=== PATIENT | female | born 1940 | race Caucasian/White ===

== ENCOUNTER 2017-05-04 20:07 | Observation (INO) | payer MEDICARE, BC ==
[~2017-05-04] VITALS: Ht 165.1 cm; Wt 89.5 kg
[~2017-05-04 20:07] MED LIST: AMLO10TA PO; CHOL10002 PO; DEXL60CA3 PO; DILT-35 PO; INSU100V12 SQ; INSU100V36 SQ; LACT10SO32 PO; LEVO50TA8 PO; NADO20TA PO; ONDA8TAB6 PO; PHEN-824 PO; POLY17PO10 PO; [UNRECOGNIZED DRUG - CODE] PO
[2017-05-04] MEDS ORDERED: normal saline 1000ML IV soln IVB ONE (22:00)
[2017-05-04] MEDS ORDERED: MORPHINE 2MG in 2ml NS syringe IV PRN (22:00)
[2017-05-04] MEDS ORDERED: ondansetron/PF 4mg/2ml inj IV ONE (22:00)
[2017-05-04 22:19] LABS: BASOPHILS % (AUTO) 0.3 % (0-1); EOSINOPHILS # (AUTO) 0.3 X10'3 (0-0.9); EOSINOPHILS % (AUTO) 4.5 % (0-6); HEMATOCRIT 36.9 % (35.0-45.0); HEMOGLOBIN 12.4 g/dl (12.0-16.0); LYMPHOCYTES # (AUTO) 1.4 X10'3 (1.1-4.8); LYMPHOCYTES % (AUTO) 21.9 % (21-51); MEAN CORPUSCULAR HEMOGLOBIN 29.7 PG (27.0-31.0); MEAN CORPUSCULAR HGB CONC 33.6 % (33.0-36.5); MEAN CORPUSCULAR VOLUME 88.5 FL (78-98); MEAN PLATELET VOLUME 8.3 FL (7.4-10.4); MONOCYTES # (AUTO) 0.7 X10'3 (0-0.9); MONOCYTES % (AUTO) 11.3 % (2-12); PLATELET COUNT 120 X10'3 (140-440); RED BLOOD COUNT 4.17 X10'6 (4.20-5.60); RED CELL DISTRIBUTION WIDTH 17.7 % (11.5-14.5); WHITE BLOOD COUNT 6.4 X10'3 (4.5-11.0)
[2017-05-04 22:35] LABS: INR 1.1 INR; PROTHROMBIN TIME 11.8 SECONDS (9.0-12.0)
[2017-05-04 22:36] LABS: ALANINE AMINOTRANSFERASE 29 U/L (12-78); ALBUMIN 2.8 G/DL (3.4-5.0); ALBUMIN/GLOBULIN RATIO 0.7 (1.1-1.5); ALKALINE PHOSPHATASE 144 IU/L (46-116); ANION GAP 10 (8-16); ASPARTATE AMINO TRANSFERASE 49 U/L (10-37); BLOOD UREA NITROGEN 16 MG/DL (7-18); BUN/CREATININE RATIO 12.5 (6.6-38.0); CALCIUM 9.7 MG/DL (8.5-10.1); CHLORIDE 106 MMOL/L (99-107); CREATININE 1.28 MG/DL (0.40-0.90); GLUCOSE 139 MG/DL (70-104); POTASSIUM 4.2 MMOL/L (3.5-5.1); SODIUM 140 MMOL/L (135-145); TOTAL CARBON DIOXIDE 24.1 MMOL/L (24-32); TOTAL PROTEIN 6.9 G/DL (6.4-8.2); eGFR 40 ML/MIN
[2017-05-04 22:41] LABS: ETHANOL < 0.010 GM/DL (0.0-0.010)
[2017-05-04] MEDS ORDERED: ACET-3067 PO (22:44)
[2017-05-04] MEDS ORDERED: ESOM40CA30 PO (22:44)
[2017-05-04] MEDS ORDERED: [UNRECOGNIZED DRUG - CODE] PO (22:44)
[2017-05-04] MEDS ORDERED: FURO-150 PO (22:44)
[2017-05-04] MEDS ORDERED: SPIR50TA3 PO (22:44)
[2017-05-04 23:10] LABS: CLARITY,URINE CLEAR (Clear); COLOR,URINE YELLOW (Yellow); GLUCOSE, URINE NEGATIVE (Neg); KETONES,URINE 15 mg/dl (Neg); LEUKOCYTE ESTERASE ,URINE NEGATIVE (Neg); NITRITES, URINE NEGATIVE (Neg); OCCULT BLOOD,URINE NEGATIVE (Neg); PH,URINE 5.5 (4.8-8.0); PROTEIN,URINE 30 mg/dl (Neg)
[2017-05-04] MEDS ORDERED: proCHLORperazine 10 MG/2 ml inj IV ONE (23:10)
[2017-05-04 23:16] LABS: UA COLLECTION TYPE CLN CATCH MIDSTREAM
[2017-05-04 23:18] LABS: RBC,URINE NONE SEEN /HPF (0-2); WBC,URINE 0-4 /HPF (0-4)
[2017-05-04 23:19] LABS: BACTERIA,URINE FEW /HPF (Neg); HYALINE CASTS 0-3 /LPF (NEGATIVE); MUCUS STRANDS MODERATE /LPF (Neg); SQUAMOUS EPITHELIAL CELL,UR MANY /LPF (FEW)
[2017-05-05] MEDS ORDERED: normal saline 1000ml 1,000 ML IV SCH (01:22)
[2017-05-05] MEDS ORDERED: acetaminophen 325mg tablet PO PRN (01:25)
[2017-05-05] MEDS ORDERED: ondansetron/PF 4mg/2ml inj IV PRN (01:25)
[2017-05-05] MEDS ORDERED: levoTHYROXINE 25mcg tablet PO SCH (07:00)
[2017-05-05] MEDS ORDERED: pantoprazole 40mg Tablet.DR PO SCH (07:30)
[2017-05-05] MEDS ORDERED: acetaminophen w/codeine (60MG) #4 tablet PO SCH (08:00)
[2017-05-05] MEDS ORDERED: metoprolol tartrate 12.5mg (1/2 tablet) PO SCH (08:00)
[2017-05-05] MEDS ORDERED: famotidine 20mg tablet PO SCH (08:00)
[2017-05-05] MEDS: lactulose 20gm/30ml cup PO SCH ×2 (08:27→14:20)
[2017-05-05 10:56] LABS: CHOL/HDL RATIO 3.8 (0.00-4.99); CHOLESTEROL 219 MG/DL (0-200); HDL CHOLESTEROL 58 MG/DL (35-60); LDL CHOLESTEROL 140 MG/DL (50-100); TRIGLYCERIDES 112 MG/DL (20-135)
[2017-05-05 14:00] VITALS: BP_SYST 131; BP_SYST 134; BP_SYST 152; BP_DIAS 59; BP_DIAS 64; BP_DIAS 73
[2017-05-05] MEDS ORDERED: insulin glargine (Lantus) pen - multi-dose SQ SCH (21:00)
== END 2017-05-05 17:50 | disposition home or self-care (01) ==
LOC: ER 20:07 → ED HOLD 05-05 01:22 → ORTHO 4S 05-05 14:15
PROVIDERS: ADMIT Family Medicine; ATTEND Family Medicine
DX: R55 Syncope and collapse (principal); E11.43 Type 2 diabetes mellitus with diabetic autonomic (poly)neuropathy; E78.5 Hyperlipidemia, unspecified; E03.9 Hypothyroidism, unspecified; I12.9 Hypertensive chronic kidney disease with stage 1 through stage 4 chronic kidney disease, or unspecified chronic kidney disease; E11.22 Type 2 diabetes mellitus with diabetic chronic kidney disease; N18.3 Chronic kidney disease, stage 3 (moderate); I85.00 Esophageal varices without bleeding; K22.70 Barrett's esophagus without dysplasia; K31.84 Gastroparesis; K74.60 Unspecified cirrhosis of liver; K21.9 Gastro-esophageal reflux disease without esophagitis; I26.99 Other pulmonary embolism without acute cor pulmonale; Z87.891 Personal history of nicotine dependence
CPT/HCPCS: 36415; 70450; 71045; 73502; 80053; 80061; 80320; 81001; 82948; 84484; 85025; 85610; 93306; 93880; 96361; 96374; 96375; 99285; A6258; G0378; J0780; J2274; J2405; J7030; 93005; J1815

== ENCOUNTER 2017-06-14 08:03 | Day surgery (SDC) | payer MEDICARE, BC ==
[~2017-06-14] VITALS: Ht 165.1 cm; Wt 102.1 kg
[~2017-06-14 08:03] MED LIST changes: +ACET-3067 PO; -AMLO10TA PO; -DEXL60CA3 PO; +FURO-150 PO; +MECL12.584 PO; -POLY17PO10 PO; +SPIR50TA3 PO
[2017-06-14] MEDS ORDERED: epiNEPHrine inj 0.3 MG in LIDOcaine 1% 30ml vial 29.7 ML IJ ONE (08:10)
[2017-06-14 08:30] VITALS: BP 153/65
[2017-06-14] MEDS ORDERED: albumin (human) 25% 100 ML IV solution IV PRN (08:35)
[2017-06-14] MEDS ORDERED: normal saline 1000ml 1,000 ML IV PRN (08:35)
[2017-06-14] MEDS ORDERED: LIDOcaine 1% 30ml preserv. free vial SQ ONE (08:40)
[2017-06-14] MEDS ORDERED: ESOM40CA30 PO (08:58)
[2017-06-14] MEDS ORDERED: PHE12.5R RC (08:58)
[2017-06-14] MEDS ORDERED: LACT10SO PO (08:58)
[2017-06-14] MEDS ORDERED: FLUC40SU2 PO (08:58)
[2017-06-14] MEDS ORDERED: POLY17PO10 PO (08:58)
[2017-06-14 09:30] VITALS: BP 153/65
[2017-06-14 09:35] VITALS: BP 130/71
[2017-06-14 09:50] VITALS: BP 131/66
[2017-06-14 10:05] VITALS: BP 125/59
== END 2017-06-14 11:00 | disposition home or self-care (01) ==
LOC: SSTAY O 08:03
PROVIDERS: ATTEND Radiology Diagnostic Radiology
DX: R18.8 Other ascites (principal); K75.81 Nonalcoholic steatohepatitis (NASH); E78.00 Pure hypercholesterolemia, unspecified; E11.22 Type 2 diabetes mellitus with diabetic chronic kidney disease; I12.9 Hypertensive chronic kidney disease with stage 1 through stage 4 chronic kidney disease, or unspecified chronic kidney disease; N18.3 Chronic kidney disease, stage 3 (moderate); K21.9 Gastro-esophageal reflux disease without esophagitis; M19.90 Unspecified osteoarthritis, unspecified site; G89.29 Other chronic pain; Z96.651 Presence of right artificial knee joint; Z93.2 Ileostomy status; Z85.828 Personal history of other malignant neoplasm of skin; Z79.4 Long term (current) use of insulin; Z86.711 Personal history of pulmonary embolism; Z88.5 Allergy status to narcotic agent; Z90.49 Acquired absence of other specified parts of digestive tract; Z91.013 Allergy to seafood; Z88.4 Allergy status to anesthetic agent; Z88.6 Allergy status to analgesic agent; Z87.891 Personal history of nicotine dependence; Z88.8 Allergy status to other drugs, medicaments and biological substances; Z79.899 Other long term (current) drug therapy; Z98.890 Other specified postprocedural states
CPT/HCPCS: 49083; A6257; J3490; J7030; P9047; J0171

== ENCOUNTER 2017-07-05 06:44 | Day surgery (SDC) | payer MEDICARE, BC ==
[~2017-07-05] VITALS: Ht 165.1 cm; Wt 102.5 kg
[~2017-07-05 06:44] MED LIST changes: -DILT-35 PO; +DILT30TA5 PO; +ESOM40CA30 PO; +LACT10SO PO; -LACT10SO32 PO; +LIDOcaine 1% 30ml preserv. free vial SQ ONE; -MECL12.584 PO; -NADO20TA PO; +PHE12.5R RC; -PHEN-824 PO; +POLY17PO10 PO; -[UNRECOGNIZED DRUG - CODE] PO
[2017-07-05 07:06] VITALS: BP 133/65
[2017-07-05] MEDS ORDERED: CARSR60C PO (07:08)
[2017-07-05] MEDS ORDERED: albumin (human) 25% 100 ML IV solution IV PRN (07:15)
[2017-07-05] MEDS ORDERED: normal saline 1000ml 1,000 ML IV PRN (07:15)
[2017-07-05 08:36] VITALS: BP 137/68
[2017-07-05 09:00] VITALS: BP 139/71
== END 2017-07-05 09:24 | disposition home or self-care (01) ==
LOC: SSTAY O 06:44
PROVIDERS: ATTEND Radiology Diagnostic Radiology
DX: R18.8 Other ascites (principal); K74.60 Unspecified cirrhosis of liver; E11.22 Type 2 diabetes mellitus with diabetic chronic kidney disease; I12.9 Hypertensive chronic kidney disease with stage 1 through stage 4 chronic kidney disease, or unspecified chronic kidney disease; N18.9 Chronic kidney disease, unspecified; E03.9 Hypothyroidism, unspecified; K21.9 Gastro-esophageal reflux disease without esophagitis; E66.01 Morbid (severe) obesity due to excess calories; Z88.8 Allergy status to other drugs, medicaments and biological substances; Z91.013 Allergy to seafood; Z79.4 Long term (current) use of insulin; Z93.2 Ileostomy status; Z86.711 Personal history of pulmonary embolism
CPT/HCPCS: 49083; A6257; J3490; J7030

== ENCOUNTER 2017-07-17 15:57 | Emergency (ER) | payer MEDICARE, BC ==
[~2017-07-17 15:57] MED LIST changes: -ACET-3067 PO; +CARSR60C PO; +CEPH500C5 PO; -DILT30TA5 PO; -LACT10SO PO; +LACT10SO32 PO; -LIDOcaine 1% 30ml preserv. free vial SQ ONE; -SPIR50TA3 PO; +SPIR50TA5 PO
[2017-07-17] MEDS ORDERED: albumin (Human) 5% 250 ML IV solution IV ONE (16:17)
[2017-07-17] MEDS ORDERED: spironolactone 50 MG tablet PO ONE (16:20)
[2017-07-17] MEDS ORDERED: LIDOcaine 1.5% w/epinephrine 1:200,000 5ml ampul SQ ONE (16:30)
[2017-07-17 16:35] LABS: BASOPHILS % (AUTO) 0.1 % (0-1); EOSINOPHILS # (AUTO) 0.3 X10'3 (0-0.9); EOSINOPHILS % (AUTO) 3.2 % (0-6); HEMATOCRIT 29.6 % (35.0-45.0); HEMOGLOBIN 9.5 g/dl (12.0-16.0); LYMPHOCYTES # (AUTO) 0.6 X10'3 (1.1-4.8); LYMPHOCYTES % (AUTO) 6.6 % (21-51); MEAN CORPUSCULAR HEMOGLOBIN 26.4 PG (27.0-31.0); MEAN CORPUSCULAR HGB CONC 32.2 % (33.0-36.5); MEAN CORPUSCULAR VOLUME 81.8 FL (78-98); MEAN PLATELET VOLUME 7.2 FL (7.4-10.4); MONOCYTES # (AUTO) 1.3 X10'3 (0-0.9); MONOCYTES % (AUTO) 12.8 % (2-12); NEUTROPHILS # (AUTO) 7.6 X10'3 (1.8-7.7); NEUTROPHILS % (AUTO) 77.3 % (42-75); PLATELET COUNT 162 X10'3 (140-440); RED BLOOD COUNT 3.62 X10'6 (4.20-5.60); RED CELL DISTRIBUTION WIDTH 18.4 % (11.5-14.5); WHITE BLOOD COUNT 9.8 X10'3 (4.5-11.0)
[2017-07-17 16:45] LABS: INR 1.1 INR; PARTIAL THROMBOPLASTIN TIME 27 SECONDS (22-32); PROTHROMBIN TIME 11.5 SECONDS (9.0-12.0)
[2017-07-17 16:50] LABS: ALANINE AMINOTRANSFERASE 26 U/L (12-78); ALBUMIN 2.4 G/DL (3.4-5.0); ALBUMIN/GLOBULIN RATIO 0.6 (1.1-1.5); ALKALINE PHOSPHATASE 185 IU/L (46-116); ANION GAP 3 (8-16); ASPARTATE AMINO TRANSFERASE 54 U/L (10-37); BLOOD UREA NITROGEN 20 MG/DL (7-18); BUN/CREATININE RATIO 15.2 (6.6-38.0); CALCIUM 8.9 MG/DL (8.5-10.1); CHLORIDE 105 MMOL/L (99-107); CREATININE 1.32 MG/DL (0.40-0.90); GLUCOSE 121 MG/DL (70-104); LIPASE 109 U/L (73-393); POTASSIUM 4.1 MMOL/L (3.5-5.1); SODIUM 131 MMOL/L (135-145); TOTAL CARBON DIOXIDE 22.6 MMOL/L (24-32); TOTAL PROTEIN 6.3 G/DL (6.4-8.2); eGFR 39 ML/MIN
[2017-07-17] MEDS ORDERED: spironolactone 25 MG tablet PO ONE (16:50)
[2017-07-17 18:14] VITALS: BP 149/82
== END 2017-07-17 18:58 | disposition home or self-care (01) ==
LOC: ER 15:57
DX: R18.8 Other ascites (principal); D64.9 Anemia, unspecified; N18.9 Chronic kidney disease, unspecified; E78.00 Pure hypercholesterolemia, unspecified; I12.9 Hypertensive chronic kidney disease with stage 1 through stage 4 chronic kidney disease, or unspecified chronic kidney disease; K21.9 Gastro-esophageal reflux disease without esophagitis; E11.22 Type 2 diabetes mellitus with diabetic chronic kidney disease; Z79.4 Long term (current) use of insulin; Z90.49 Acquired absence of other specified parts of digestive tract; Z98.890 Other specified postprocedural states; Z88.5 Allergy status to narcotic agent; Z86.711 Personal history of pulmonary embolism; Z79.899 Other long term (current) drug therapy; Z91.013 Allergy to seafood
CPT/HCPCS: 36415; 49083; 80053; 83690; 85025; 85610; 85730; 96374; 99285; A6449; J3490; P9045; 99284

== ENCOUNTER 2017-07-26 07:18 | Day surgery (SDC) | payer MEDICARE, BC ==
[~2017-07-26] VITALS: Ht 165.1 cm; Wt 101.2 kg
[2017-07-26 07:40] VITALS: BP 137/62
[2017-07-26] MEDS ORDERED: ACET-3067 PO (07:52)
[2017-07-26] MEDS ORDERED: SPIR50TA5 PO (07:52)
[2017-07-26] MEDS ORDERED: SUCR1TAB PO (07:53)
[2017-07-26] MEDS ORDERED: normal saline 1000ml 1,000 ML IV PRN (07:55)
[2017-07-26] MEDS ORDERED: albumin (human) 25% 100 ML IV solution IV PRN (07:55)
[2017-07-26] MEDS ORDERED: LIDOcaine 1% 30ml preserv. free vial SQ ONE (08:00)
[2017-07-26 08:49] VITALS: BP 142/71
[2017-07-26 09:00] VITALS: BP 144/68
[2017-07-26 09:13] VITALS: BP 135/67
[2017-07-26 09:30] VITALS: BP 126/63
[2017-07-26 09:45] VITALS: BP 128/65
== END 2017-07-26 09:52 | disposition home or self-care (01) ==
LOC: SSTAY O 07:18
PROVIDERS: ATTEND Radiology Diagnostic Radiology
DX: R18.8 Other ascites (principal); K21.9 Gastro-esophageal reflux disease without esophagitis; N18.9 Chronic kidney disease, unspecified; E03.9 Hypothyroidism, unspecified; I12.9 Hypertensive chronic kidney disease with stage 1 through stage 4 chronic kidney disease, or unspecified chronic kidney disease; E11.22 Type 2 diabetes mellitus with diabetic chronic kidney disease; N18.3 Chronic kidney disease, stage 3 (moderate); M19.90 Unspecified osteoarthritis, unspecified site; E66.01 Morbid (severe) obesity due to excess calories; Z87.891 Personal history of nicotine dependence; Z90.49 Acquired absence of other specified parts of digestive tract; Z96.651 Presence of right artificial knee joint; Z72.89 Other problems related to lifestyle; Z85.828 Personal history of other malignant neoplasm of skin; Z86.711 Personal history of pulmonary embolism; Z68.37 Body mass index [BMI] 37.0-37.9, adult; Z88.6 Allergy status to analgesic agent; Z93.2 Ileostomy status; Z79.4 Long term (current) use of insulin; Z91.013 Allergy to seafood; Z88.5 Allergy status to narcotic agent; Z88.4 Allergy status to anesthetic agent; Z79.891 Long term (current) use of opiate analgesic; Z88.8 Allergy status to other drugs, medicaments and biological substances; Z79.899 Other long term (current) drug therapy; Z98.890 Other specified postprocedural states
CPT/HCPCS: 49083; A6257; J3490; J7030; P9047

== ENCOUNTER 2017-08-04 12:03 | Outpatient (CLI) | payer MEDICARE, BC ==
[~2017-08-04 12:03] MED LIST changes: +ACET-3067 PO; -CEPH500C5 PO; -POLY17PO10 PO; +SUCR1TAB PO
== END 2017-08-04 23:59 | disposition home or self-care (01) ==
LOC: CARD DIAG 12:03
PROVIDERS: ATTEND Transplant Surgery
DX: I08.0 Rheumatic disorders of both mitral and aortic valves (principal); R18.8 Other ascites
CPT/HCPCS: 93308

== ENCOUNTER 2017-08-09 07:20 | Day surgery (SDC) | payer MEDICARE, BC ==
[~2017-08-09] VITALS: Ht 165.1 cm; Wt 94.8 kg
[2017-08-09] VITALS (7 sets, daily range): BP systolic 135–167; BP diastolic 64–84
[2017-08-09] MEDS ORDERED: LIDOcaine 1% 30ml preserv. free vial SQ STA (07:32)
[2017-08-09] MEDS ORDERED: normal saline 1000ml 1,000 ML IV PRN (07:45)
[2017-08-09] MEDS ORDERED: albumin (human) 25% 100 ML IV solution IV PRN (07:45)
[2017-08-09] MEDS ORDERED: LIDOcaine 1%/PF 5ML 10 MG/ML VIAL SQ STA (08:04)
== END 2017-08-09 10:20 | disposition home or self-care (01) ==
LOC: SSTAY O 07:20
PROVIDERS: ATTEND Radiology Diagnostic Radiology
DX: R18.8 Other ascites (principal); K21.9 Gastro-esophageal reflux disease without esophagitis; I12.9 Hypertensive chronic kidney disease with stage 1 through stage 4 chronic kidney disease, or unspecified chronic kidney disease; E11.22 Type 2 diabetes mellitus with diabetic chronic kidney disease; N18.9 Chronic kidney disease, unspecified; M19.90 Unspecified osteoarthritis, unspecified site; E03.9 Hypothyroidism, unspecified; E66.01 Morbid (severe) obesity due to excess calories; Z79.891 Long term (current) use of opiate analgesic; Z79.4 Long term (current) use of insulin; Z68.34 Body mass index [BMI] 34.0-34.9, adult; Z87.891 Personal history of nicotine dependence; Z90.49 Acquired absence of other specified parts of digestive tract; Z96.651 Presence of right artificial knee joint; Z72.89 Other problems related to lifestyle; Z93.2 Ileostomy status; Z91.013 Allergy to seafood; Z88.5 Allergy status to narcotic agent; Z88.6 Allergy status to analgesic agent; Z88.4 Allergy status to anesthetic agent; Z85.828 Personal history of other malignant neoplasm of skin; Z88.8 Allergy status to other drugs, medicaments and biological substances; Z79.899 Other long term (current) drug therapy; Z98.890 Other specified postprocedural states
CPT/HCPCS: 49083; A6257; J2001; J7030; P9047

== ENCOUNTER 2017-08-16 07:17 | Day surgery (SDC) | payer MEDICARE, BC ==
[~2017-08-16] VITALS: Ht 165.1 cm; Wt 92.9 kg
[~2017-08-16 07:17] MED LIST changes: +LIDOcaine 1%/PF 5ML 10 MG/ML VIAL SQ STA
[2017-08-16] MEDS ORDERED: albumin (human) 25% 100 ML IV solution IV PRN (07:50)
[2017-08-16] MEDS ORDERED: normal saline 1000ml 1,000 ML IV PRN (07:50)
[2017-08-16 08:31] VITALS: BP 138/74
[2017-08-16 09:50] VITALS: BP 123/78
[2017-08-16 10:05] VITALS: BP 132/85
[2017-08-16 10:20] VITALS: BP 127/74
== END 2017-08-16 10:25 | disposition home or self-care (01) ==
LOC: SSTAY O 07:17
PROVIDERS: ATTEND Radiology Diagnostic Radiology
DX: R18.8 Other ascites (principal); K75.81 Nonalcoholic steatohepatitis (NASH); K21.9 Gastro-esophageal reflux disease without esophagitis; E03.9 Hypothyroidism, unspecified; M19.90 Unspecified osteoarthritis, unspecified site; E11.22 Type 2 diabetes mellitus with diabetic chronic kidney disease; I12.9 Hypertensive chronic kidney disease with stage 1 through stage 4 chronic kidney disease, or unspecified chronic kidney disease; N18.3 Chronic kidney disease, stage 3 (moderate); E66.01 Morbid (severe) obesity due to excess calories; Z86.711 Personal history of pulmonary embolism; Z72.89 Other problems related to lifestyle; Z85.828 Personal history of other malignant neoplasm of skin; Z79.891 Long term (current) use of opiate analgesic; Z79.4 Long term (current) use of insulin; Z88.6 Allergy status to analgesic agent; Z93.2 Ileostomy status; Z91.013 Allergy to seafood; Z88.5 Allergy status to narcotic agent; Z88.4 Allergy status to anesthetic agent; Z87.891 Personal history of nicotine dependence; Z90.49 Acquired absence of other specified parts of digestive tract; Z68.34 Body mass index [BMI] 34.0-34.9, adult; Z88.8 Allergy status to other drugs, medicaments and biological substances; Z79.899 Other long term (current) drug therapy; Z98.890 Other specified postprocedural states
CPT/HCPCS: 49083; A6257; J2001; J7030; P9047

== ENCOUNTER 2017-08-23 07:06 | Day surgery (SDC) | payer MEDICARE, BC ==
[~2017-08-23] VITALS: Ht 165.1 cm; Wt 92.7 kg
[~2017-08-23 07:06] MED LIST changes: -LIDOcaine 1%/PF 5ML 10 MG/ML VIAL SQ STA
[2017-08-23] MEDS ORDERED: LIDOcaine 1% 30ml preserv. free vial SQ ONE (07:10)
[2017-08-23 07:25] VITALS: BP 117/64
[2017-08-23] MEDS ORDERED: LIDOcaine 1%/PF 5ML 10 MG/ML VIAL SQ ONE (07:30)
[2017-08-23] MEDS ORDERED: albumin (human) 25% 100 ML IV solution IV PRN (07:35)
[2017-08-23] MEDS ORDERED: normal saline 1000ml 1,000 ML IV PRN (07:35)
[2017-08-23] MEDS ORDERED: SPIR100T5 PO (07:45)
[2017-08-23 08:45] VITALS: BP 147/59
[2017-08-23 09:00] VITALS: BP 151/75
[2017-08-23 09:15] VITALS: BP 146/62
[2017-08-23 09:30] VITALS: BP 174/70
== END 2017-08-23 10:05 | disposition home or self-care (01) ==
LOC: SSTAY O 07:06
PROVIDERS: ATTEND Radiology Diagnostic Radiology
DX: R18.8 Other ascites (principal); K75.81 Nonalcoholic steatohepatitis (NASH); K21.9 Gastro-esophageal reflux disease without esophagitis; E11.22 Type 2 diabetes mellitus with diabetic chronic kidney disease; I12.9 Hypertensive chronic kidney disease with stage 1 through stage 4 chronic kidney disease, or unspecified chronic kidney disease; N18.3 Chronic kidney disease, stage 3 (moderate); E03.9 Hypothyroidism, unspecified; E66.01 Morbid (severe) obesity due to excess calories; M19.90 Unspecified osteoarthritis, unspecified site; I49.8 Other specified cardiac arrhythmias; E78.5 Hyperlipidemia, unspecified; Z72.89 Other problems related to lifestyle; Z85.828 Personal history of other malignant neoplasm of skin; Z79.891 Long term (current) use of opiate analgesic; Z79.4 Long term (current) use of insulin; Z88.6 Allergy status to analgesic agent; Z91.013 Allergy to seafood; Z68.34 Body mass index [BMI] 34.0-34.9, adult; Z93.2 Ileostomy status; Z86.711 Personal history of pulmonary embolism; Z88.5 Allergy status to narcotic agent; Z88.4 Allergy status to anesthetic agent; Z87.891 Personal history of nicotine dependence; Z96.651 Presence of right artificial knee joint; Z88.8 Allergy status to other drugs, medicaments and biological substances; Z98.890 Other specified postprocedural states; Z79.899 Other long term (current) drug therapy
CPT/HCPCS: 49083; A6257; J2001; J7030; P9047

== ENCOUNTER 2017-08-28 07:28 | Inpatient (IN) | payer MEDICARE, BC ==
[~2017-08-28] VITALS: Ht 165.1 cm; Wt 96.0 kg
[~2017-08-28 07:28] MED LIST changes: +SPIR100T5 PO; -SPIR50TA5 PO
[2017-08-28] MEDS ORDERED: ondansetron/PF 4mg/2ml inj IV ONE (07:50)
[2017-08-28] MEDS ORDERED: verapamil 2.5 mg/ml inj IV ONE (07:55)
[2017-08-28 08:13] LABS: BASOPHILS % (AUTO) 0.3 % (0-1); EOSINOPHILS % (AUTO) 0.4 % (0-6); HEMATOCRIT 31.7 % (35.0-45.0); HEMOGLOBIN 10.4 g/dl (12.0-16.0); LYMPHOCYTES # (AUTO) 0.4 X10'3 (1.1-4.8); LYMPHOCYTES % (AUTO) 4.9 % (21-51); MEAN CORPUSCULAR HGB CONC 32.8 % (33.0-36.5); MEAN CORPUSCULAR VOLUME 79.3 FL (78-98); MEAN PLATELET VOLUME 7.6 FL (7.4-10.4); MONOCYTES # (AUTO) 0.7 X10'3 (0-0.9); MONOCYTES % (AUTO) 8.8 % (2-12); NEUTROPHILS # (AUTO) 7.2 X10'3 (1.8-7.7); NEUTROPHILS % (AUTO) 85.6 % (42-75); PLATELET COUNT 148 X10'3 (140-440); WHITE BLOOD COUNT 8.4 X10'3 (4.5-11.0)
[2017-08-28 08:21] LABS: INR 1.2 INR; PARTIAL THROMBOPLASTIN TIME 27 SECONDS (22-32)
[2017-08-28 08:26] LABS: ANISOCYTOSIS 3+; PLATELET ESTIMATE NORMAL; POLYCHROMASIA 1+
[2017-08-28 08:27] LABS: TARGET CELLS FEW; TEAR DROP CELLS FEW
[2017-08-28 08:35] LABS: ALANINE AMINOTRANSFERASE 28 U/L (12-78); ALBUMIN 2.9 G/DL (3.4-5.0); ALBUMIN/GLOBULIN RATIO 0.7 (1.1-1.5); ALKALINE PHOSPHATASE 173 IU/L (46-116); ANION GAP 16 (8-16); ASPARTATE AMINO TRANSFERASE 40 U/L (10-37); BILIRUBIN,TOTAL 1.9 MG/DL (0.1-1.0); BLOOD UREA NITROGEN 29 MG/DL (7-18); BUN/CREATININE RATIO 13.6 (6.6-38.0); CHLORIDE 98 MMOL/L (99-107); CREATININE 2.14 MG/DL (0.40-0.90); GLUCOSE 138 MG/DL (70-104); LIPASE 136 U/L (73-393); POTASSIUM 5.2 MMOL/L (3.5-5.1); SODIUM 132 MMOL/L (135-145); TOTAL CARBON DIOXIDE 17.9 MMOL/L (24-32); eGFR 22 ML/MIN
[2017-08-28] MEDS ORDERED: normal saline 1000ml 1,000 ML IV ONE (09:25)
[2017-08-28 09:54] LABS: CLARITY,URINE CLEAR (Clear); COLOR,URINE YELLOW (Yellow); GLUCOSE, URINE NEGATIVE (Neg); KETONES,URINE TRACE mg/dl (Neg); LEUKOCYTE ESTERASE ,URINE NEGATIVE (Neg); NITRITES, URINE NEGATIVE (Neg); OCCULT BLOOD,URINE NEGATIVE (Neg); PH,URINE 5.5 (4.8-8.0); PROTEIN,URINE NEGATIVE (Neg); UROBILINOGEN,URINE 0.2 E.U/dL (0.2-1.0)
[2017-08-28 09:59] LABS: UA COLLECTION TYPE STRAIGHT CATH
[2017-08-28] MEDS ORDERED: piperacillin/tazo 3.375gm/50ml 50 ML IV ONE ×2 (10:35→10:40)
[2017-08-28] MEDS ORDERED: LIDOcaine 1.5% w/epinephrine 1:200,000 5ml ampul IJ ONE (10:40)
[2017-08-28] MEDS ORDERED: normal saline 1000ML IV soln IVB ONE (10:40)
[2017-08-28] MEDS: CefTRIAXone/D5W-Rocephin 1gm 50 ML IV ONE (10:55)
[2017-08-28] MEDS ORDERED: albumin (human) 25% 100 ML IV solution IV ONE (12:20)
[2017-08-28 12:57] LABS: GLUCOSE,BODY FLUID 135 MG/DL; LDH,BODY FLUID 41 U/L; LIPASE,BODY FLUID 75 U/L
[2017-08-28 13:03] LABS: LYMPHOCYTES,BODY FLUID 5 %; MONOCYTES,BODY FLUID 6 %; NEUTROPHILS,BODY FLUID 89 %
[2017-08-28 13:04] LABS: BF MESOTHELIAL CELLS FEW; BF RBC COUNT 3500 /CU MM; BF WBC COUNT 5075 /CU MM (0-1000); BFAPPEAR CLOUDY; BFCOLOR YELLOW; BFVOLUME 20 ML
[2017-08-28 13:16] LABS: TOTAL PROTEIN,BODY FLUID < 2.0 G/DL
[2017-08-28 14:08] VITALS: BP 134/57
[2017-08-28 15:44] LABS: HEMOGLOBIN A1C 6.1 % (4.5-6.2)
[2017-08-28] MEDS ORDERED: acetaminophen w/codeine (60MG) #4 tablet PO PRN (17:00)
[2017-08-28] MEDS: sucralfate 1 gm tablet PO SCH ×2 (17:00→21:00)
[2017-08-28] MEDS: pantoprazole 40mg Tablet.DR PO SCH (17:15)
[2017-08-28] MEDS ORDERED: acetaminophen w/codeine (30MG) #3 tablet PO PRN (17:16)
[2017-08-28 20:00] VITALS: BP_SYST 109; BP_SYST 126; BP_SYST 88; BP_DIAS 34; BP_DIAS 46; BP_DIAS 57
[2017-08-28] MEDS: diltiazem SR 60mg capsule (twice daily) PO SCH (20:00)
[2017-08-28] MEDS ORDERED: INSULIN DETEMIR 40 UNIT SQ SCH (21:00)
[2017-08-29] VITALS: BP 109/60
[2017-08-29] MEDS ORDERED: meclizine 12.5mg tablet PO SCH
[2017-08-29] MEDS: pantoprazole 40mg Tablet.DR PO SCH ×2 (07:37→17:20)
[2017-08-29] MEDS: vitamin D (cholecalciferol) 1,000 unit tablet PO SCH (07:37)
[2017-08-29] MEDS: levoTHYROXINE 25mcg tablet PO SCH (07:37)
[2017-08-29] MEDS: sucralfate 1 gm tablet PO SCH ×4 (07:38→20:46)
[2017-08-29] MEDS: spironolactone 25 MG tablet PO SCH (07:38)
[2017-08-29] MEDS: meclizine 12.5mg tablet PO SCH ×3 (07:38→20:46)
[2017-08-29] MEDS: furosemide 20MG tablet PO SCH (07:38)
[2017-08-29] MEDS: diltiazem SR 60mg capsule (twice daily) PO SCH ×3 (07:43→20:46)
[2017-08-29 07:44] VITALS: BP 114/73
[2017-08-29 07:51] VITALS: BP_SYST 114; BP_SYST 131; BP_SYST 132; BP_DIAS 69; BP_DIAS 73; BP_DIAS 76
[2017-08-29] MEDS: insulin Lispro (HumaLOG) vial - multi-dose SQ SCH (08:00)
[2017-08-29 08:53] LABS: BASOPHILS # (AUTO) 0.1 X10'3 (0-0.2); BASOPHILS % (AUTO) 1.5 % (0-1); EOSINOPHILS # (AUTO) 0.2 X10'3 (0-0.9); EOSINOPHILS % (AUTO) 2.8 % (0-6); HEMATOCRIT 27.3 % (35.0-45.0); LYMPHOCYTES # (AUTO) 0.6 X10'3 (1.1-4.8); LYMPHOCYTES % (AUTO) 9.6 % (21-51); MEAN CORPUSCULAR HEMOGLOBIN 26.3 PG (27.0-31.0); MEAN CORPUSCULAR HGB CONC 32.8 % (33.0-36.5); MEAN CORPUSCULAR VOLUME 80.1 FL (78-98); MEAN PLATELET VOLUME 7.7 FL (7.4-10.4); MONOCYTES # (AUTO) 0.6 X10'3 (0-0.9); MONOCYTES % (AUTO) 8.5 % (2-12); NEUTROPHILS # (AUTO) 5.2 X10'3 (1.8-7.7); NEUTROPHILS % (AUTO) 77.6 % (42-75); PLATELET COUNT 129 X10'3 (140-440); RED BLOOD COUNT 3.41 X10'6 (4.20-5.60); RED CELL DISTRIBUTION WIDTH 23.1 % (11.5-14.5); WHITE BLOOD COUNT 6.7 X10'3 (4.5-11.0)
[2017-08-29 09:00] LABS: ALANINE AMINOTRANSFERASE 22 U/L (12-78); ALBUMIN 2.8 G/DL (3.4-5.0); ALBUMIN/GLOBULIN RATIO 0.8 (1.1-1.5); ALKALINE PHOSPHATASE 115 IU/L (46-116); ANION GAP 10 (8-16); ASPARTATE AMINO TRANSFERASE 39 U/L (10-37); BILIRUBIN,TOTAL 1.7 MG/DL (0.1-1.0); BLOOD UREA NITROGEN 26 MG/DL (7-18); CHLORIDE 101 MMOL/L (99-107); CREATININE 1.63 MG/DL (0.40-0.90); GLUCOSE 111 MG/DL (70-104); POTASSIUM 4.4 MMOL/L (3.5-5.1); SODIUM 132 MMOL/L (135-145); TOTAL CARBON DIOXIDE 20.6 MMOL/L (24-32); TOTAL PROTEIN 6.4 G/DL (6.4-8.2); eGFR 31 ML/MIN
[2017-08-29] MEDS: CefTRIAXone/D5W-Rocephin 1gm 50 ML IV SCH (11:00)
[2017-08-29 11:44] VITALS: BP 127/78
[2017-08-29] MEDS: lactulose 20gm/30ml cup PO SCH ×3 (12:00→23:25)
[2017-08-29] MEDS ORDERED: insulin glargine (Lantus) pen - multi-dose SQ SCH (19:52)
[2017-08-29 20:00] VITALS: BP_SYST 116; BP_SYST 120; BP_SYST 126; BP_DIAS 58; BP_DIAS 60
[2017-08-29] MEDS: insulin glargine (Lantus) pen - multi-dose SQ SCH (21:23)
[2017-08-30] VITALS (9 sets, daily range): BP systolic 94–131; BP diastolic 46–83
[2017-08-30] MEDS ORDERED: propranolol 10mg tablet PO PRN (00:20)
[2017-08-30 05:20] LABS: HEMOGLOBIN 8.4 g/dl (12.0-16.0); MEAN CORPUSCULAR HEMOGLOBIN 26.4 PG (27.0-31.0); MEAN CORPUSCULAR HGB CONC 32.5 % (33.0-36.5); MEAN CORPUSCULAR VOLUME 81.4 FL (78-98); MEAN PLATELET VOLUME 7.9 FL (7.4-10.4); PLATELET COUNT 132 X10'3 (140-440); RED CELL DISTRIBUTION WIDTH 24.2 % (11.5-14.5); WHITE BLOOD COUNT 7.2 X10'3 (4.5-11.0)
[2017-08-30 05:29] LABS: ALANINE AMINOTRANSFERASE 23 U/L (12-78); ALBUMIN 2.6 G/DL (3.4-5.0); ALBUMIN/GLOBULIN RATIO 0.8 (1.1-1.5); ALKALINE PHOSPHATASE 133 IU/L (46-116); ANION GAP 9 (8-16); ASPARTATE AMINO TRANSFERASE 41 U/L (10-37); BILIRUBIN,TOTAL 0.7 MG/DL (0.1-1.0); BLOOD UREA NITROGEN 26 MG/DL (7-18); BUN/CREATININE RATIO 13.6 (6.6-38.0); CALCIUM 8.9 MG/DL (8.5-10.1); CHLORIDE 104 MMOL/L (99-107); CREATININE 1.91 MG/DL (0.40-0.90); GLUCOSE 92 MG/DL (70-104); SODIUM 134 MMOL/L (135-145); TOTAL CARBON DIOXIDE 20.6 MMOL/L (24-32); TOTAL PROTEIN 5.9 G/DL (6.4-8.2); eGFR 25 ML/MIN
[2017-08-30 07:22] LABS: ANISOCYTOSIS 3+; LARGE PLATELETS FEW; PLATELET ESTIMATE DECREASED; TOTAL CELLS COUNTED 100
[2017-08-30 07:23] LABS: HYPOCHROMASIA 1+
[2017-08-30] MEDS: CefTRIAXone/D5W-Rocephin 1gm 50 ML IV SCH (07:31)
[2017-08-30] MEDS: pantoprazole 40mg Tablet.DR PO SCH ×3 (07:32→17:26)
[2017-08-30] MEDS: vitamin D (cholecalciferol) 1,000 unit tablet PO SCH (07:32)
[2017-08-30] MEDS: furosemide 20MG tablet PO SCH (07:32)
[2017-08-30] MEDS: sucralfate 1 gm tablet PO SCH ×5 (07:32→21:06)
[2017-08-30] MEDS: meclizine 12.5mg tablet PO SCH ×3 (07:33→21:06)
[2017-08-30] MEDS: spironolactone 25 MG tablet PO SCH (07:33)
[2017-08-30] MEDS: levoTHYROXINE 25mcg tablet PO SCH (07:33)
[2017-08-30] MEDS: lactulose 20gm/30ml cup PO SCH ×3 (07:33→17:26)
[2017-08-30] MEDS: insulin Lispro (HumaLOG) vial - multi-dose SQ SCH (08:00)
[2017-08-30] MEDS: diltiazem SR 60mg capsule (twice daily) PO SCH ×2 (10:13→21:07)
[2017-08-30] MEDS ORDERED: insulin glargine (Lantus) pen - multi-dose SQ SCH (21:00)
[2017-08-30] MEDS: insulin glargine (Lantus) pen - multi-dose SQ SCH (21:05)
[2017-08-31] VITALS (7 sets, daily range): BP systolic 103–151; BP diastolic 51–70
[2017-08-31] MEDS: levoTHYROXINE 25mcg tablet PO SCH (07:41)
[2017-08-31] MEDS: vitamin D (cholecalciferol) 1,000 unit tablet PO SCH (07:42)
[2017-08-31] MEDS: pantoprazole 40mg Tablet.DR PO SCH ×2 (07:42→16:43)
[2017-08-31] MEDS: furosemide 20MG tablet PO SCH (07:42)
[2017-08-31] MEDS: diltiazem SR 60mg capsule (twice daily) PO SCH ×2 (07:43→20:34)
[2017-08-31] MEDS: meclizine 12.5mg tablet PO SCH ×3 (07:43→20:35)
[2017-08-31] MEDS: spironolactone 25 MG tablet PO SCH (07:43)
[2017-08-31] MEDS: sucralfate 1 gm tablet PO SCH ×4 (07:43→20:35)
[2017-08-31] MEDS: CefTRIAXone/D5W-Rocephin 1gm 50 ML IV SCH (07:43)
[2017-08-31] MEDS: lactulose 20gm/30ml cup PO SCH ×4 (07:49→23:55)
[2017-08-31] MEDS: insulin Lispro (HumaLOG) vial - multi-dose SQ SCH (07:50)
[2017-08-31] MEDS: ondansetron/PF 4mg/2ml inj IV PRN ×2 (11:35→19:41)
[2017-08-31 12:45] LABS: BASOPHILS % (AUTO) 0 % (0-1); EOSINOPHILS # (AUTO) 0.4 X10'3 (0-0.9); EOSINOPHILS % (AUTO) 4.5 % (0-6); HEMATOCRIT 32.4 % (35.0-45.0); HEMOGLOBIN 10.5 g/dl (12.0-16.0); LYMPHOCYTES # (AUTO) 0.5 X10'3 (1.1-4.8); LYMPHOCYTES % (AUTO) 5.7 % (21-51); MEAN CORPUSCULAR HEMOGLOBIN 26.3 PG (27.0-31.0); MEAN CORPUSCULAR HGB CONC 32.4 % (33.0-36.5); MEAN CORPUSCULAR VOLUME 81.4 FL (78-98); MEAN PLATELET VOLUME 7.6 FL (7.4-10.4); MONOCYTES # (AUTO) 0.7 X10'3 (0-0.9); MONOCYTES % (AUTO) 8.1 % (2-12); NEUTROPHILS # (AUTO) 6.6 X10'3 (1.8-7.7); NEUTROPHILS % (AUTO) 81.7 % (42-75); PLATELET COUNT 184 X10'3 (140-440); RED BLOOD COUNT 3.98 X10'6 (4.20-5.60); RED CELL DISTRIBUTION WIDTH 23.6 % (11.5-14.5); WHITE BLOOD COUNT 8.1 X10'3 (4.5-11.0)
[2017-08-31 13:01] LABS: ALANINE AMINOTRANSFERASE 30 U/L (12-78); ALBUMIN 3.1 G/DL (3.4-5.0); ALBUMIN/GLOBULIN RATIO 0.8 (1.1-1.5); ALKALINE PHOSPHATASE 152 IU/L (46-116); ANION GAP 10 (8-16); ASPARTATE AMINO TRANSFERASE 56 U/L (10-37); BILIRUBIN,TOTAL 0.9 MG/DL (0.1-1.0); BLOOD UREA NITROGEN 26 MG/DL (7-18); BUN/CREATININE RATIO 15.3 (6.6-38.0); CALCIUM 9.8 MG/DL (8.5-10.1); CHLORIDE 99 MMOL/L (99-107); GLUCOSE 116 MG/DL (70-104); POTASSIUM 4.7 MMOL/L (3.5-5.1); SODIUM 131 MMOL/L (135-145); TOTAL PROTEIN 7.1 G/DL (6.4-8.2); eGFR 29 ML/MIN
[2017-08-31 13:02] LABS: ANISOCYTOSIS 3+; PLATELET ESTIMATE NORMAL
[2017-08-31 13:03] LABS: HYPOCHROMASIA 1+
[2017-08-31] MEDS: lactobacillus rhamnosus 10,000 MMU CELLS/CAPSULE PO SCH (20:00)
[2017-08-31] MEDS: insulin glargine (Lantus) pen - multi-dose SQ SCH (20:57)
[2017-09-01] VITALS: BP 110/64
[2017-09-01 05:27] LABS: BASOPHILS % (AUTO) 0 % (0-1); EOSINOPHILS # (AUTO) 0.2 X10'3 (0-0.9); EOSINOPHILS % (AUTO) 2.2 % (0-6); HEMATOCRIT 26.1 % (35.0-45.0); HEMOGLOBIN 8.6 g/dl (12.0-16.0); LYMPHOCYTES % (AUTO) 12.8 % (21-51); MEAN CORPUSCULAR HEMOGLOBIN 26.5 PG (27.0-31.0); MEAN CORPUSCULAR HGB CONC 32.7 % (33.0-36.5); MEAN CORPUSCULAR VOLUME 80.9 FL (78-98); MEAN PLATELET VOLUME 7.7 FL (7.4-10.4); MONOCYTES # (AUTO) 0.6 X10'3 (0-0.9); MONOCYTES % (AUTO) 8.5 % (2-12); NEUTROPHILS # (AUTO) 5.8 X10'3 (1.8-7.7); NEUTROPHILS % (AUTO) 76.5 % (42-75); PLATELET COUNT 138 X10'3 (140-440); RED BLOOD COUNT 3.23 X10'6 (4.20-5.60); WHITE BLOOD COUNT 7.6 X10'3 (4.5-11.0)
[2017-09-01 05:56] LABS: ALANINE AMINOTRANSFERASE 29 U/L (12-78); ALBUMIN 2.5 G/DL (3.4-5.0); ALBUMIN/GLOBULIN RATIO 0.8 (1.1-1.5); ALKALINE PHOSPHATASE 132 IU/L (46-116); ANION GAP 8 (8-16); ASPARTATE AMINO TRANSFERASE 48 U/L (10-37); BILIRUBIN,TOTAL 0.5 MG/DL (0.1-1.0); BLOOD UREA NITROGEN 25 MG/DL (7-18); BUN/CREATININE RATIO 14.5 (6.6-38.0); CALCIUM 9.1 MG/DL (8.5-10.1); CHLORIDE 101 MMOL/L (99-107); CREATININE 1.73 MG/DL (0.40-0.90); GLUCOSE 116 MG/DL (70-104); POTASSIUM 4.6 MMOL/L (3.5-5.1); SODIUM 130 MMOL/L (135-145); TOTAL CARBON DIOXIDE 21.1 MMOL/L (24-32); TOTAL PROTEIN 5.8 G/DL (6.4-8.2); eGFR 29 ML/MIN
[2017-09-01 06:58] LABS: ANISOCYTOSIS 3+; HYPOCHROMASIA 1+; PLATELET ESTIMATE DECREASED; POIKILOCYTOSIS 1+
[2017-09-01 07:25] VITALS: BP 118/60
[2017-09-01] MEDS: insulin Lispro (HumaLOG) vial - multi-dose SQ SCH (08:00)
[2017-09-01] MEDS: levoTHYROXINE 25mcg tablet PO SCH (08:24)
[2017-09-01] MEDS: CefTRIAXone/D5W-Rocephin 1gm 50 ML IV SCH (08:25)
[2017-09-01] MEDS: pantoprazole 40mg Tablet.DR PO SCH (08:25)
[2017-09-01] MEDS: spironolactone 25 MG tablet PO SCH (08:26)
[2017-09-01] MEDS: meclizine 12.5mg tablet PO SCH ×2 (08:26→12:58)
[2017-09-01] MEDS: sucralfate 1 gm tablet PO SCH ×2 (08:26→12:58)
[2017-09-01] MEDS: diltiazem SR 60mg capsule (twice daily) PO SCH (08:27)
[2017-09-01] MEDS: lactulose 20gm/30ml cup PO SCH (08:28)
[2017-09-01] MEDS: lactobacillus rhamnosus 10,000 MMU CELLS/CAPSULE PO SCH (08:28)
[2017-09-01] MEDS: furosemide 20MG tablet PO SCH (08:28)
[2017-09-01] MEDS: vitamin D (cholecalciferol) 1,000 unit tablet PO SCH (08:29)
[2017-09-01 10:50] VITALS: BP 129/70
[2017-09-01 11:30] VITALS: BP 123/60
== END 2017-09-01 15:08 | DRG 371 ==
LOC: ER 07:28 → ED HOLD 10:58 → EDBEDREQ 12:56 → SUR 3N 13:50
PROVIDERS: ADMIT Internal Medicine; ATTEND Internal Medicine
PROC: 0W9G3ZZ Drainage of Peritoneal Cavity, Percutaneous Approach (ICD-10-PCS; principal; 2017-08-28)
DX: K65.2 Spontaneous bacterial peritonitis (principal); J18.9 Pneumonia, unspecified organism; R18.8 Other ascites; E87.1 Hypo-osmolality and hyponatremia; N17.9 Acute kidney failure, unspecified; K76.6 Portal hypertension; K31.89 Other diseases of stomach and duodenum; I12.9 Hypertensive chronic kidney disease with stage 1 through stage 4 chronic kidney disease, or unspecified chronic kidney disease; E03.9 Hypothyroidism, unspecified; E11.22 Type 2 diabetes mellitus with diabetic chronic kidney disease; K75.81 Nonalcoholic steatohepatitis (NASH); E78.00 Pure hypercholesterolemia, unspecified; E86.9 Volume depletion, unspecified; I95.1 Orthostatic hypotension; E87.5 Hyperkalemia; K21.9 Gastro-esophageal reflux disease without esophagitis; K74.60 Unspecified cirrhosis of liver; N18.9 Chronic kidney disease, unspecified; Z90.49 Acquired absence of other specified parts of digestive tract; Z88.8 Allergy status to other drugs, medicaments and biological substances; Z88.5 Allergy status to narcotic agent; Z91.013 Allergy to seafood; Z79.4 Long term (current) use of insulin; Z79.899 Other long term (current) drug therapy; Z87.440 Personal history of urinary (tract) infections; Z86.711 Personal history of pulmonary embolism
CPT/HCPCS: 36415; 49083; 71045; 76705; 80053; 81003; 82140; 82945; 82948; 83036; 83605; 83615; 83690; 83735; 84145; 84157; 84443; 84484; 85025; 85610; 85730; 87040; 87070; 89051; 93005; 96374; 96375; 97110; 97116; 97161; 97530; 99285; A6258; J0696; J1815; J2405; J3490; J7030; J8597; P9047

== ENCOUNTER 2017-09-06 07:15 | Day surgery (SDC) | payer MEDICARE, BC ==
[~2017-09-06] VITALS: Ht 165.1 cm; Wt 95.2 kg
[~2017-09-06 07:15] MED LIST changes: -ONDA8TAB6 PO
[2017-09-06 07:29] VITALS: BP 134/64
[2017-09-06] MEDS ORDERED: normal saline 1000ml 1,000 ML IV PRN (07:35)
[2017-09-06] MEDS ORDERED: albumin (human) 25% 100 ML IV solution IV PRN (07:35)
[2017-09-06] MEDS ORDERED: LACT10SO6 PO (07:37)
[2017-09-06] MEDS ORDERED: LIDOcaine 1%/PF 5ML 10 MG/ML VIAL SQ ONE (08:00)
[2017-09-06 08:58] VITALS: BP 136/68
[2017-09-06 09:00] VITALS: BP 136/68
[2017-09-06 09:15] VITALS: BP 120/70
== END 2017-09-06 09:42 | disposition home or self-care (01) ==
LOC: SSTAY O 07:15
PROVIDERS: ATTEND Radiology Diagnostic Radiology
DX: R18.8 Other ascites (principal); K75.89 Other specified inflammatory liver diseases; K21.9 Gastro-esophageal reflux disease without esophagitis; E03.9 Hypothyroidism, unspecified; E11.22 Type 2 diabetes mellitus with diabetic chronic kidney disease; I12.9 Hypertensive chronic kidney disease with stage 1 through stage 4 chronic kidney disease, or unspecified chronic kidney disease; N18.9 Chronic kidney disease, unspecified; E87.5 Hyperkalemia; E78.00 Pure hypercholesterolemia, unspecified; E87.1 Hypo-osmolality and hyponatremia; M19.90 Unspecified osteoarthritis, unspecified site; Z86.711 Personal history of pulmonary embolism; Z93.2 Ileostomy status; Z88.8 Allergy status to other drugs, medicaments and biological substances; Z88.5 Allergy status to narcotic agent; Z91.013 Allergy to seafood; Z79.4 Long term (current) use of insulin; Z87.891 Personal history of nicotine dependence; Z79.899 Other long term (current) drug therapy; Z87.440 Personal history of urinary (tract) infections; Z96.651 Presence of right artificial knee joint; F10.10 Alcohol abuse, uncomplicated; F41.9 Anxiety disorder, unspecified; Z85.828 Personal history of other malignant neoplasm of skin; Z90.49 Acquired absence of other specified parts of digestive tract; Z87.19 Personal history of other diseases of the digestive system
CPT/HCPCS: 49083; J2001; J7030

== ENCOUNTER 2017-09-07 10:27 | Outpatient (CLI) | payer MEDICARE, BC ==
[~2017-09-07 10:27] MED LIST changes: -LACT10SO32 PO; +LACT10SO6 PO
== END 2017-09-07 23:59 | disposition home or self-care (01) ==
LOC: RAD 10:27
PROVIDERS: ATTEND Specialist
DX: R18.8 Other ascites (principal); K74.60 Unspecified cirrhosis of liver; N17.9 Acute kidney failure, unspecified; F10.10 Alcohol abuse, uncomplicated; I10 Essential (primary) hypertension; E11.9 Type 2 diabetes mellitus without complications; Z87.891 Personal history of nicotine dependence; Z79.899 Other long term (current) drug therapy
CPT/HCPCS: 76775

== ENCOUNTER 2017-09-07 11:14 | Inpatient (IN) | payer MEDICARE, BC ==
[~2017-09-07] VITALS: Ht 162.6 cm; Wt 90.9 kg
[2017-09-07 11:38] LABS: HEMATOCRIT 29.6 % (35.0-45.0); HEMOGLOBIN 9.7 g/dl (12.0-16.0); MEAN CORPUSCULAR HEMOGLOBIN 26.4 PG (27.0-31.0); MEAN CORPUSCULAR HGB CONC 32.9 % (33.0-36.5); MEAN CORPUSCULAR VOLUME 80.3 FL (78-98); MEAN PLATELET VOLUME 7.5 FL (7.4-10.4); PLATELET COUNT 156 X10'3 (140-440); RED BLOOD COUNT 3.69 X10'6 (4.20-5.60); RED CELL DISTRIBUTION WIDTH 24.1 % (11.5-14.5)
[2017-09-07 11:46] LABS: INR 1.1 INR; PROTHROMBIN TIME 11.6 SECONDS (9.0-12.0)
[2017-09-07 11:52] LABS: ALANINE AMINOTRANSFERASE 30 U/L (12-78); ALBUMIN 2.9 G/DL (3.4-5.0); ALBUMIN/GLOBULIN RATIO 0.7 (1.1-1.5); ALKALINE PHOSPHATASE 157 IU/L (46-116); ANION GAP 9 (8-16); ASPARTATE AMINO TRANSFERASE 40 U/L (10-37); BILIRUBIN,TOTAL 1.3 MG/DL (0.1-1.0); BLOOD UREA NITROGEN 29 MG/DL (7-18); CALCIUM 9.6 MG/DL (8.5-10.1); CHLORIDE 103 MMOL/L (99-107); CREATININE 1.71 MG/DL (0.40-0.90); GLUCOSE 116 MG/DL (70-104); MAGNESIUM 1.5 MG/DL (1.5-2.4); PHOSPHORUS 3.2 MG/DL (2.3-4.5); POTASSIUM 4.9 MMOL/L (3.5-5.1); SODIUM 135 MMOL/L (135-145); TOTAL CARBON DIOXIDE 22.9 MMOL/L (24-32); TOTAL PROTEIN 6.9 G/DL (6.4-8.2); eGFR 29 ML/MIN
[2017-09-07 12:05] LABS: ANISOCYTOSIS 3+; HYPOCHROMASIA 1+; PLATELET ESTIMATE NORMAL; TOTAL CELLS COUNTED 100
[2017-09-07 12:33] LABS: LACTIC SEPSIS 2.2 MMOL/L (0.4-2.0)
[2017-09-07] MEDS ORDERED: normal saline 1000ml 1,000 ML IV ONE (12:45)
[2017-09-07] MEDS ORDERED: sodium polystyrene sulfonate 15gm/60ml oral suspension PO ONE (12:50)
[2017-09-07] MEDS ORDERED: furosemide 10 MG/1 ML 10ml inj IV ONE (12:50)
[2017-09-07] MEDS: lactulose 20gm/30ml cup PO ONE ×2 (13:05→13:33)
[2017-09-07] MEDS ORDERED: potassium Cl 40MEQ/NS 500ml 500 ML IV PRN ×2 (13:55)
[2017-09-07] MEDS ORDERED: mag hydrox/Alum hydrox/simeth 30ml oral suspension PO PRN (13:55)
[2017-09-07] MEDS ORDERED: magnesium hydroxide 30ml (MOM) UD suspension PO PRN (13:55)
[2017-09-07] MEDS ORDERED: magnesium Cl slow-release 64mg tablet PO PRN (13:55)
[2017-09-07] MEDS ORDERED: ondansetron/PF 4mg/2ml inj IV PRN (13:55)
[2017-09-07] MEDS ORDERED: potassium Cl 20 mEq SR tablet PO PRN ×2 (13:55)
[2017-09-07] MEDS ORDERED: bisacodyl 10mg suppository rectal RC PRN (13:55)
[2017-09-07] MEDS ORDERED: magnesium 4gm in 100ml NS 100 ML IV PRN (13:55)
[2017-09-07] MEDS ORDERED: magnesium 1gm/100ml D5W IVPB 100 ML IV PRN (13:55)
[2017-09-07 14:00] LABS: CLARITY,URINE CLEAR (Clear); COLOR,URINE YELLOW (Yellow); GLUCOSE, URINE NEGATIVE (Neg); KETONES,URINE NEGATIVE (Neg); LEUKOCYTE ESTERASE ,URINE NEGATIVE (Neg); NITRITES, URINE NEGATIVE (Neg); OCCULT BLOOD,URINE NEGATIVE (Neg); PH,URINE 5.5 (4.8-8.0); PROTEIN,URINE NEGATIVE (Neg); UROBILINOGEN,URINE 0.2 E.U/dL (0.2-1.0)
[2017-09-07] MEDS ORDERED: LACTULOSE 20 GM PO SCH (14:00)
[2017-09-07] MEDS ORDERED: proMETHazine 12.5mg rectal suppository RC SCH (14:00)
[2017-09-07] MEDS ORDERED: acetaminophen w/codeine (60MG) #4 tablet PO PRN (14:00)
[2017-09-07 14:05] LABS: UA COLLECTION TYPE STRAIGHT CATH
[2017-09-07] MEDS ORDERED: glucagon, human recombinant 1mg kit SUBCUT PRN (14:05)
[2017-09-07] MEDS ORDERED: dextrose ORAL solution 15 GM/59 ML bottle PO PRN ×2 (14:05)
[2017-09-07] MEDS ORDERED: MESSAGE TO PHARMACY PO ONE (14:05)
[2017-09-07] MEDS ORDERED: dextrose 50%-water 50ml dispensing syringe IV PRN ×2 (14:05)
[2017-09-07] MEDS ORDERED: insulin Lispro (HumaLOG) vial - multi-dose SQ SCH (14:05)
[2017-09-07] MEDS ORDERED: proMETHazine 12.5mg rectal suppository RC PRN ×2 (14:15)
[2017-09-07] MEDS: levoFLOXACIN-Levaquin 500mg/D5 100 ML IV SCH (14:33)
[2017-09-07 14:45] LABS: URINE AMPHETAMINE SCREEN NEGATIVE (Neg); URINE BARBITUATE SCREEN NEGATIVE (Neg); URINE BENZODIAZEPINES SCREEN NEGATIVE (Neg); URINE CANNABINOID SCREEN NEGATIVE (Neg); URINE COCAINE SCREEN NEGATIVE (Neg); URINE METHADONE SCREEN NEGATIVE (Neg); URINE OPIATE SCREEN NEGATIVE (Neg); URINE PHENCYCLIDINE SCREEN NEGATIVE (Neg)
[2017-09-07] MEDS: metroNIDAZOLE-Flagyl 500mg/NS 100 ML IV SCH (16:01)
[2017-09-07 17:33] VITALS: BP 139/66
[2017-09-07] MEDS: sucralfate 1 gm tablet PO SCH ×2 (17:41→21:42)
[2017-09-07 20:00] VITALS: BP 144/54
[2017-09-07] MEDS: furosemide 20 MG/2 ML vial IV SCH (20:12)
[2017-09-07] MEDS: lactulose 20gm/30ml cup PO SCH (20:13)
[2017-09-07] MEDS: docusate sod 100mg capsule PO SCH (20:13)
[2017-09-07] MEDS: diltiazem SR 60mg capsule (twice daily) PO SCH (20:13)
[2017-09-07] MEDS: heparin, porcine 5000 units/ml vial SQ SCH (20:14)
[2017-09-07] MEDS: insulin glargine (Lantus) pen - multi-dose SQ SCH (21:00)
[2017-09-08] VITALS: BP 139/69
[2017-09-08] MEDS: metroNIDAZOLE-Flagyl 500mg/NS 100 ML IV SCH ×2 (00:36→09:46)
[2017-09-08] MEDS: lactulose 20gm/30ml cup PO SCH ×4 (03:29→21:41)
[2017-09-08] MEDS: acetaminophen 325mg tablet PO PRN ×2 (04:12→22:54)
[2017-09-08 05:00] LABS: BASOPHILS % (AUTO) 0 % (0-1); EOSINOPHILS # (AUTO) 0.2 X10'3 (0-0.9); EOSINOPHILS % (AUTO) 3.2 % (0-6); HEMATOCRIT 26.2 % (35.0-45.0); HEMOGLOBIN 8.7 g/dl (12.0-16.0); LYMPHOCYTES # (AUTO) 1.2 X10'3 (1.1-4.8); LYMPHOCYTES % (AUTO) 18.1 % (21-51); MEAN CORPUSCULAR HEMOGLOBIN 26.4 PG (27.0-31.0); MEAN CORPUSCULAR VOLUME 80.1 FL (78-98); MEAN PLATELET VOLUME 7.5 FL (7.4-10.4); MONOCYTES # (AUTO) 0.6 X10'3 (0-0.9); MONOCYTES % (AUTO) 9.8 % (2-12); NEUTROPHILS # (AUTO) 4.4 X10'3 (1.8-7.7); NEUTROPHILS % (AUTO) 68.9 % (42-75); PLATELET COUNT 131 X10'3 (140-440); RED BLOOD COUNT 3.28 X10'6 (4.20-5.60); WHITE BLOOD COUNT 6.4 X10'3 (4.5-11.0)
[2017-09-08 05:30] LABS: ALANINE AMINOTRANSFERASE 27 U/L (12-78); ALBUMIN 2.5 G/DL (3.4-5.0); ALBUMIN/GLOBULIN RATIO 0.7 (1.1-1.5); ALKALINE PHOSPHATASE 129 IU/L (46-116); ANION GAP 11 (8-16); ASPARTATE AMINO TRANSFERASE 42 U/L (10-37); BILIRUBIN,TOTAL 1.2 MG/DL (0.1-1.0); BLOOD UREA NITROGEN 28 MG/DL (7-18); BUN/CREATININE RATIO 17.7 (6.6-38.0); CHLORIDE 106 MMOL/L (99-107); CREATININE 1.58 MG/DL (0.40-0.90); GLUCOSE 124 MG/DL (70-104); MAGNESIUM 1.6 MG/DL (1.5-2.4); POTASSIUM 3.9 MMOL/L (3.5-5.1); SODIUM 141 MMOL/L (135-145); TOTAL CARBON DIOXIDE 24.1 MMOL/L (24-32); eGFR 32 ML/MIN
[2017-09-08] MEDS: levoTHYROXINE 25mcg tablet PO SCH (07:00)
[2017-09-08 08:00] VITALS: BP_SYST 127; BP_SYST 157; BP_DIAS 76; BP_DIAS 88
[2017-09-08] MEDS: heparin, porcine 5000 units/ml vial SQ SCH ×2 (08:00→21:42)
[2017-09-08] MEDS: K and/or MAG REPLACEMENT MC SCH (08:00)
[2017-09-08] MEDS: vitamin D (cholecalciferol) 1,000 unit tablet PO SCH (08:17)
[2017-09-08] MEDS: docusate sod 100mg capsule PO SCH ×2 (08:18→21:42)
[2017-09-08] MEDS: spironolactone 25 MG tablet PO SCH (08:18)
[2017-09-08] MEDS: diltiazem SR 60mg capsule (twice daily) PO SCH ×2 (08:18→21:42)
[2017-09-08] MEDS: furosemide 20 MG/2 ML vial IV SCH ×2 (08:18→21:42)
[2017-09-08] MEDS: sucralfate 1 gm tablet PO SCH ×4 (08:18→21:42)
[2017-09-08] MEDS: levoFLOXACIN-Levaquin 500mg/D5 100 ML IV SCH (08:19)
[2017-09-08] MEDS ORDERED: LIDOcaine 1%/PF 5ML 10 MG/ML VIAL ONE (11:10)
[2017-09-08 11:51] VITALS: BP 152/64
[2017-09-08 11:58] LABS: ANISOCYTOSIS 3+; PLATELET ESTIMATE DECREASED
[2017-09-08 11:59] LABS: HYPOCHROMASIA 1+
[2017-09-08 13:11] LABS: GLUCOSE,BODY FLUID 138 MG/DL; LDH,BODY FLUID 37 U/L
[2017-09-08 13:13] LABS: ALBUMIN,BODY FLUID < 0.6 G/DL
[2017-09-08 13:30] LABS: TOTAL PROTEIN,BODY FLUID < 2.0 G/DL
[2017-09-08 14:47] LABS: LYMPHOCYTES,BODY FLUID 58 %; MONOCYTES,BODY FLUID 37 %; NEUTROPHILS,BODY FLUID 5 %
[2017-09-08 14:48] LABS: BF MESOTHELIAL CELLS FEW; BF RBC COUNT 2400 /CU MM; BF WBC COUNT 180 /CU MM (0-1000); BFAPPEAR HAZY; BFCOLOR YELLOW; BFVOLUME 65 ML
[2017-09-08] MEDS: metroNIDAZOLE 500mg tablet PO SCH (15:27)
[2017-09-08 20:00] VITALS: BP 136/71
[2017-09-08] MEDS: insulin glargine (Lantus) pen - multi-dose SQ SCH (21:00)
[2017-09-08] MEDS: rifaximin 550mg tablet PO SCH (21:42)
[2017-09-09] VITALS: BP 151/67
[2017-09-09] MEDS: metroNIDAZOLE 500mg tablet PO SCH ×4 (00:38→23:46)
[2017-09-09] MEDS: lactulose 20gm/30ml cup PO SCH ×4 (02:49→20:00)
[2017-09-09 06:00] LABS: HEMATOCRIT 28.6 % (35.0-45.0); HEMOGLOBIN 9.3 g/dl (12.0-16.0); MEAN CORPUSCULAR HEMOGLOBIN 26.2 PG (27.0-31.0); MEAN CORPUSCULAR HGB CONC 32.5 % (33.0-36.5); MEAN CORPUSCULAR VOLUME 80.8 FL (78-98); MEAN PLATELET VOLUME 7.7 FL (7.4-10.4); PLATELET COUNT 139 X10'3 (140-440); RED BLOOD COUNT 3.54 X10'6 (4.20-5.60); RED CELL DISTRIBUTION WIDTH 24.1 % (11.5-14.5); WHITE BLOOD COUNT 7.5 X10'3 (4.5-11.0)
[2017-09-09 06:25] LABS: ALANINE AMINOTRANSFERASE 34 U/L (12-78); ALBUMIN 2.9 G/DL (3.4-5.0); ALBUMIN/GLOBULIN RATIO 0.8 (1.1-1.5); ALKALINE PHOSPHATASE 137 IU/L (46-116); ANION GAP 10 (8-16); ASPARTATE AMINO TRANSFERASE 49 U/L (10-37); BILIRUBIN,TOTAL 1.3 MG/DL (0.1-1.0); BLOOD UREA NITROGEN 28 MG/DL (7-18); BUN/CREATININE RATIO 14.2 (6.6-38.0); CALCIUM 9.4 MG/DL (8.5-10.1); CHLORIDE 105 MMOL/L (99-107); CREATININE 1.97 MG/DL (0.40-0.90); GLUCOSE 134 MG/DL (70-104); MAGNESIUM 1.7 MG/DL (1.5-2.4); POTASSIUM 3.7 MMOL/L (3.5-5.1); SODIUM 139 MMOL/L (135-145); TOTAL CARBON DIOXIDE 24.2 MMOL/L (24-32); TOTAL PROTEIN 6.7 G/DL (6.4-8.2); eGFR 25 ML/MIN
[2017-09-09 07:08] LABS: PLATELET ESTIMATE DECREASED; TOTAL CELLS COUNTED 100
[2017-09-09 07:09] LABS: ANISOCYTOSIS 3+; POIKILOCYTOSIS FEW; POLYCHROMASIA FEW; TARGET CELLS FEW
[2017-09-09] MEDS: levoTHYROXINE 25mcg tablet PO SCH (07:30)
[2017-09-09] MEDS: docusate sod 100mg capsule PO SCH ×2 (07:30→20:00)
[2017-09-09] MEDS: diltiazem SR 60mg capsule (twice daily) PO SCH ×2 (07:30→22:39)
[2017-09-09] MEDS: vitamin D (cholecalciferol) 1,000 unit tablet PO SCH (07:31)
[2017-09-09] MEDS: sucralfate 1 gm tablet PO SCH ×4 (07:31→22:39)
[2017-09-09] MEDS: heparin, porcine 5000 units/ml vial SQ SCH ×2 (07:31→22:39)
[2017-09-09] MEDS: furosemide 20 MG/2 ML vial IV SCH ×2 (07:31→22:38)
[2017-09-09] MEDS: spironolactone 25 MG tablet PO SCH (07:35)
[2017-09-09 08:00] VITALS: BP 147/68
[2017-09-09] MEDS: K and/or MAG REPLACEMENT MC SCH (08:00)
[2017-09-09] MEDS: rifaximin 550mg tablet PO SCH ×2 (09:05→22:39)
[2017-09-09] MEDS: levoFLOXACIN 250mg tablet PO SCH (11:13)
[2017-09-09] MEDS: acetaminophen w/codeine (30MG) #3 tablet PO PRN ×2 (11:14→17:16)
[2017-09-09 12:00] VITALS: BP 135/69
[2017-09-09 18:50] VITALS: BP 146/67
[2017-09-09] MEDS: insulin glargine (Lantus) pen - multi-dose SQ SCH (21:00)
[2017-09-10] MEDS: lactulose 20gm/30ml cup PO SCH ×2 (01:50→11:06)
[2017-09-10 07:00] VITALS: BP 105/44
[2017-09-10 07:37] LABS: ALBUMIN 2.5 G/DL (3.4-5.0); ALBUMIN/GLOBULIN RATIO 0.8 (1.1-1.5); ANION GAP 10 (8-16); BILIRUBIN,TOTAL 1.1 MG/DL (0.1-1.0); BLOOD UREA NITROGEN 28 MG/DL (7-18); BUN/CREATININE RATIO 14.4 (6.6-38.0); CALCIUM 8.9 MG/DL (8.5-10.1); CHLORIDE 102 MMOL/L (99-107); CREATININE 1.94 MG/DL (0.40-0.90); GLUCOSE 98 MG/DL (70-104); MAGNESIUM 1.6 MG/DL (1.5-2.4); POTASSIUM 3.7 MMOL/L (3.5-5.1); SODIUM 135 MMOL/L (135-145); TOTAL PROTEIN 5.8 G/DL (6.4-8.2); eGFR 25 ML/MIN
[2017-09-10 07:38] LABS: ALANINE AMINOTRANSFERASE 24 U/L (12-78); ALKALINE PHOSPHATASE 128 IU/L (46-116); ASPARTATE AMINO TRANSFERASE 61 U/L (10-37)
[2017-09-10] MEDS: furosemide 20 MG/2 ML vial IV SCH (07:55)
[2017-09-10] MEDS: metroNIDAZOLE 500mg tablet PO SCH (07:56)
[2017-09-10] MEDS: diltiazem SR 60mg capsule (twice daily) PO SCH (07:56)
[2017-09-10] MEDS: vitamin D (cholecalciferol) 1,000 unit tablet PO SCH (07:56)
[2017-09-10] MEDS: levoTHYROXINE 25mcg tablet PO SCH (07:57)
[2017-09-10] MEDS: sucralfate 1 gm tablet PO SCH (07:57)
[2017-09-10] MEDS: spironolactone 25 MG tablet PO SCH (07:57)
[2017-09-10] MEDS: K and/or MAG REPLACEMENT MC SCH (08:00)
[2017-09-10] MEDS: docusate sod 100mg capsule PO SCH (08:00)
[2017-09-10 09:31] LABS: BASOPHILS % (AUTO) 0 % (0-1); EOSINOPHILS # (AUTO) 0.2 X10'3 (0-0.9); EOSINOPHILS % (AUTO) 2.8 % (0-6); HEMATOCRIT 27.5 % (35.0-45.0); HEMOGLOBIN 8.9 g/dl (12.0-16.0); LYMPHOCYTES # (AUTO) 0.9 X10'3 (1.1-4.8); MEAN CORPUSCULAR HEMOGLOBIN 26.3 PG (27.0-31.0); MEAN CORPUSCULAR HGB CONC 32.3 % (33.0-36.5); MEAN CORPUSCULAR VOLUME 81.5 FL (78-98); MONOCYTES # (AUTO) 0.7 X10'3 (0-0.9); MONOCYTES % (AUTO) 8.8 % (2-12); NEUTROPHILS % (AUTO) 76.4 % (42-75); PLATELET COUNT 136 X10'3 (140-440); RED BLOOD COUNT 3.38 X10'6 (4.20-5.60); RED CELL DISTRIBUTION WIDTH 24.3 % (11.5-14.5); WHITE BLOOD COUNT 7.9 X10'3 (4.5-11.0)
[2017-09-10 09:48] LABS: ANISOCYTOSIS 3+; HYPOCHROMASIA 1+; MICROCYTOSIS 1+; PLATELET ESTIMATE DECREASED; POLYCHROMASIA 1+
[2017-09-10 09:49] LABS: TARGET CELLS 1+
[2017-09-10] MEDS: levoFLOXACIN 250mg tablet PO SCH (11:07)
[2017-09-10] MEDS: heparin, porcine 5000 units/ml vial SQ SCH (11:11)
[2017-09-10] MEDS: rifaximin 550mg tablet PO SCH (11:11)
[2017-09-10] MEDS ORDERED: RIFA550T PO (12:26)
== END 2017-09-10 15:58 | disposition home or self-care (01) | DRG 441 ==
LOC: ER 11:15 → ED HOLD 14:28 → EDBEDREQ 16:10 → SUR 3N 17:09
PROVIDERS: ADMIT Internal Medicine; ATTEND Family Medicine
PROC: 0W9G3ZZ Drainage of Peritoneal Cavity, Percutaneous Approach (ICD-10-PCS; principal; 2017-09-08)
DX: K72.90 Hepatic failure, unspecified without coma (principal); K65.2 Spontaneous bacterial peritonitis; R18.8 Other ascites; E03.9 Hypothyroidism, unspecified; K74.60 Unspecified cirrhosis of liver; E78.00 Pure hypercholesterolemia, unspecified; K21.9 Gastro-esophageal reflux disease without esophagitis; I12.9 Hypertensive chronic kidney disease with stage 1 through stage 4 chronic kidney disease, or unspecified chronic kidney disease; N18.9 Chronic kidney disease, unspecified; E11.22 Type 2 diabetes mellitus with diabetic chronic kidney disease; Z66 Do not resuscitate; Z93.2 Ileostomy status; Z90.49 Acquired absence of other specified parts of digestive tract; Z91.013 Allergy to seafood; Z88.8 Allergy status to other drugs, medicaments and biological substances; Z88.5 Allergy status to narcotic agent; Z88.6 Allergy status to analgesic agent; Z79.899 Other long term (current) drug therapy; Z79.4 Long term (current) use of insulin; Z85.9 Personal history of malignant neoplasm, unspecified; Z86.711 Personal history of pulmonary embolism
CPT/HCPCS: 36415; 49083; 70450; 71045; 80053; 80305; 81003; 82042; 82140; 82945; 82948; 83605; 83615; 83735; 84100; 84157; 84484; 85025; 85610; 87040; 87070; 87075; 89051; 92616; 93005; 96360; 97161; 97530; 99285; J1644; J1815; J1940; J1956; J2001; J2405; J3490; J7030

== ENCOUNTER 2017-09-13 07:03 | Day surgery (SDC) | payer MEDICARE, BC ==
[~2017-09-13] VITALS: Ht 165.1 cm; Wt 91.2 kg
[~2017-09-13 07:03] MED LIST changes: +RIFA550T PO
[2017-09-13] MEDS ORDERED: LIDOcaine 1%/PF 5ML 10 MG/ML VIAL SQ ONE (07:20)
[2017-09-13] MEDS ORDERED: albumin (human) 25% 100 ML IV solution IV PRN (07:55)
[2017-09-13] MEDS ORDERED: normal saline 1000ml 1,000 ML IV PRN (07:55)
[2017-09-13 08:30] VITALS: BP 125/62
[2017-09-13] MEDS ORDERED: LIDOcaine 1%/PF 5ML 10 MG/ML VIAL IJ STA (09:06)
[2017-09-13 09:21] VITALS: BP 125/62
[2017-09-13 09:30] VITALS: BP 98/26
[2017-09-13 09:35] VITALS: BP 115/60
[2017-09-13 09:44] VITALS: BP 127/64
== END 2017-09-13 09:45 | disposition home or self-care (01) ==
LOC: SSTAY O 07:03
PROVIDERS: ATTEND Radiology Vascular & Interventional Radiology
DX: R18.8 Other ascites (principal); K75.81 Nonalcoholic steatohepatitis (NASH); K21.9 Gastro-esophageal reflux disease without esophagitis; E11.22 Type 2 diabetes mellitus with diabetic chronic kidney disease; I12.9 Hypertensive chronic kidney disease with stage 1 through stage 4 chronic kidney disease, or unspecified chronic kidney disease; N18.3 Chronic kidney disease, stage 3 (moderate); E03.9 Hypothyroidism, unspecified; E78.5 Hyperlipidemia, unspecified; M19.90 Unspecified osteoarthritis, unspecified site; F41.8 Other specified anxiety disorders; E66.01 Morbid (severe) obesity due to excess calories; Z87.891 Personal history of nicotine dependence; Z93.2 Ileostomy status; Z86.711 Personal history of pulmonary embolism; Z91.013 Allergy to seafood; Z88.5 Allergy status to narcotic agent; Z88.4 Allergy status to anesthetic agent; Z79.891 Long term (current) use of opiate analgesic; Z79.4 Long term (current) use of insulin; Z90.49 Acquired absence of other specified parts of digestive tract; Z87.440 Personal history of urinary (tract) infections; Z96.651 Presence of right artificial knee joint; Z85.828 Personal history of other malignant neoplasm of skin; Z72.89 Other problems related to lifestyle; Z88.6 Allergy status to analgesic agent; Z68.33 Body mass index [BMI] 33.0-33.9, adult; Z79.82 Long term (current) use of aspirin; Z88.8 Allergy status to other drugs, medicaments and biological substances; Z98.890 Other specified postprocedural states; Z79.899 Other long term (current) drug therapy
CPT/HCPCS: 49083; 88341; 88342; A6257; A6449; J2001; J7030; 88108; 88305

== ENCOUNTER 2017-09-20 06:32 | Day surgery (SDC) | payer MEDICARE, BC ==
[~2017-09-20] VITALS: Ht 165.1 cm; Wt 93.6 kg
[2017-09-20 06:50] VITALS: BP 144/57
[2017-09-20] MEDS ORDERED: albumin (human) 25% 100 ML IV solution IV PRN (07:05)
[2017-09-20] MEDS ORDERED: normal saline 1000ml 1,000 ML IV PRN (07:05)
[2017-09-20 08:30] VITALS: BP 132/60
[2017-09-20] MEDS ORDERED: LIDOcaine 1%/PF 5ML 10 MG/ML VIAL SQ ONE (08:30)
[2017-09-20 08:35] VITALS: BP 120/59
[2017-09-20 08:40] VITALS: BP 132/60
[2017-09-20 08:45] VITALS: BP 133/66
[2017-09-20 09:00] VITALS: BP 148/61
== END 2017-09-20 09:10 | disposition home or self-care (01) ==
LOC: SSTAY O 06:32
PROVIDERS: ATTEND Radiology Diagnostic Radiology
DX: R18.8 Other ascites (principal); K75.81 Nonalcoholic steatohepatitis (NASH); K21.9 Gastro-esophageal reflux disease without esophagitis; E03.9 Hypothyroidism, unspecified; E11.22 Type 2 diabetes mellitus with diabetic chronic kidney disease; N18.3 Chronic kidney disease, stage 3 (moderate); I12.9 Hypertensive chronic kidney disease with stage 1 through stage 4 chronic kidney disease, or unspecified chronic kidney disease; E78.5 Hyperlipidemia, unspecified; M19.90 Unspecified osteoarthritis, unspecified site; F41.8 Other specified anxiety disorders; E66.01 Morbid (severe) obesity due to excess calories; Z68.34 Body mass index [BMI] 34.0-34.9, adult; Z85.828 Personal history of other malignant neoplasm of skin; Z87.891 Personal history of nicotine dependence; Z90.49 Acquired absence of other specified parts of digestive tract; Z96.651 Presence of right artificial knee joint; Z79.891 Long term (current) use of opiate analgesic; Z91.013 Allergy to seafood; Z86.711 Personal history of pulmonary embolism; Z88.4 Allergy status to anesthetic agent; Z93.2 Ileostomy status; Z79.4 Long term (current) use of insulin; Z88.5 Allergy status to narcotic agent; Z72.89 Other problems related to lifestyle; Z88.6 Allergy status to analgesic agent; Z87.440 Personal history of urinary (tract) infections; Z79.82 Long term (current) use of aspirin; Z88.8 Allergy status to other drugs, medicaments and biological substances; Z98.890 Other specified postprocedural states; Z79.899 Other long term (current) drug therapy
CPT/HCPCS: 49083; A6257; J2001; J7030

== ENCOUNTER 2017-10-03 10:15 | Inpatient (IN) | payer MEDICARE, BC ==
[~2017-10-03] VITALS: Ht 165.1 cm; Wt 94.1 kg
[~2017-10-03 10:15] MED LIST changes: +ONDA4TAB6 PO
[2017-10-03 11:06] LABS: HEMATOCRIT 29.5 % (35.0-45.0); HEMOGLOBIN 9.5 g/dl (12.0-16.0); MEAN CORPUSCULAR HEMOGLOBIN 26.4 PG (27.0-31.0); MEAN CORPUSCULAR HGB CONC 32.3 % (33.0-36.5); MEAN CORPUSCULAR VOLUME 81.6 FL (78-98); MEAN PLATELET VOLUME 7.6 FL (7.4-10.4); PLATELET COUNT 133 X10'3 (140-440); RED BLOOD COUNT 3.61 X10'6 (4.20-5.60); RED CELL DISTRIBUTION WIDTH 21.8 % (11.5-14.5); WHITE BLOOD COUNT 8.3 X10'3 (4.5-11.0)
[2017-10-03 11:12] LABS: INR 1.2 INR; PROTHROMBIN TIME 12.4 SECONDS (9.0-12.0)
[2017-10-03 11:18] LABS: ALANINE AMINOTRANSFERASE 27 U/L (12-78); ALBUMIN 2.6 G/DL (3.4-5.0); ALBUMIN/GLOBULIN RATIO 0.7 (1.1-1.5); ALKALINE PHOSPHATASE 159 IU/L (46-116); ANION GAP 12 (8-16); ASPARTATE AMINO TRANSFERASE 46 U/L (10-37); BILIRUBIN,TOTAL 1.2 MG/DL (0.1-1.0); BLOOD UREA NITROGEN 36 MG/DL (7-18); CHLORIDE 96 MMOL/L (99-107); GLUCOSE 57 MG/DL (70-104); LIPASE 163 U/L (73-393); POTASSIUM 4.3 MMOL/L (3.5-5.1); SODIUM 126 MMOL/L (135-145); TOTAL CARBON DIOXIDE 18.1 MMOL/L (24-32); TOTAL PROTEIN 6.6 G/DL (6.4-8.2); eGFR 15 ML/MIN
[2017-10-03 11:29] LABS: CLARITY,URINE CLEAR (Clear); COLOR,URINE YELLOW (Yellow); GLUCOSE, URINE NEGATIVE (Neg); KETONES,URINE TRACE mg/dl (Neg); LEUKOCYTE ESTERASE ,URINE NEGATIVE (Neg); NITRITES, URINE NEGATIVE (Neg); OCCULT BLOOD,URINE NEGATIVE (Neg); PROTEIN,URINE NEGATIVE (Neg); UROBILINOGEN,URINE 0.2 E.U/dL (0.2-1.0)
[2017-10-03 11:37] LABS: UA COLLECTION TYPE STRAIGHT CATH
[2017-10-03 11:47] LABS: ANISOCYTOSIS 3+; PLATELET ESTIMATE DECREASED; TOTAL CELLS COUNTED 100
[2017-10-03 11:48] LABS: HYPOCHROMASIA 1+; MICROCYTOSIS 1+
[2017-10-03 11:49] LABS: SCHISTOCYTES FEW
[2017-10-03] MEDS ORDERED: normal saline 1000ML IV soln IVB ONE (11:55)
[2017-10-03] MEDS ORDERED: meclizine 12.5mg tablet PO ONE (11:55)
[2017-10-03] MEDS ORDERED: ondansetron/PF 4mg/2ml inj IV ONE (11:55)
[2017-10-03] MEDS ORDERED: PROM25TA14 PO (12:06)
[2017-10-03] MEDS ORDERED: potassium Cl 40MEQ/NS 500ml 500 ML IV PRN ×2 (13:00)
[2017-10-03] MEDS ORDERED: magnesium hydroxide 30ml (MOM) UD suspension PO PRN (13:00)
[2017-10-03] MEDS ORDERED: ipratropium/albuterol 3ml nebule NEB PRN (13:00)
[2017-10-03] MEDS: sucralfate 1 gm tablet PO SCH ×3 (13:00→22:03)
[2017-10-03] MEDS ORDERED: magnesium 4gm in 100ml NS 100 ML IV PRN (13:00)
[2017-10-03] MEDS ORDERED: magnesium 1gm/100ml D5W IVPB 100 ML IV PRN (13:00)
[2017-10-03] MEDS ORDERED: acetaminophen w/codeine (60MG) #4 tablet PO PRN (13:00)
[2017-10-03] MEDS ORDERED: potassium Cl 20 mEq SR tablet PO PRN ×2 (13:00)
[2017-10-03] MEDS ORDERED: mag hydrox/Alum hydrox/simeth 30ml oral suspension PO PRN (13:00)
[2017-10-03] MEDS ORDERED: ondansetron/PF 4mg/2ml inj IV PRN (13:00)
[2017-10-03] MEDS ORDERED: Lactulose Enema **for rectal use only RC PRN ×2 (13:05)
[2017-10-03] MEDS ORDERED: dextrose ORAL solution 15 GM/59 ML bottle PO PRN ×2 (13:10)
[2017-10-03] MEDS ORDERED: dextrose 50%-water 50ml dispensing syringe IV PRN ×2 (13:10)
[2017-10-03] MEDS ORDERED: glucagon, human recombinant 1mg kit SUBCUT PRN (13:10)
[2017-10-03] MEDS ORDERED: insulin Lispro (HumaLOG) vial - multi-dose SQ SCH (13:10)
[2017-10-03] MEDS ORDERED: MESSAGE TO PHARMACY PO ONE (13:10)
[2017-10-03] MEDS ORDERED: dextrose 50%-water 50ml dispensing syringe IV ONE (14:05)
[2017-10-03 14:30] VITALS: BP 140/59
[2017-10-03] MEDS: normal saline 1000ml 1,000 ML IV SCH ×2 (15:46→22:59)
[2017-10-03] MEDS: lactulose 20gm/30ml cup PO SCH ×2 (15:47→19:34)
[2017-10-03 19:00] VITALS: BP 143/76
[2017-10-03] MEDS: diltiazem SR 60mg capsule (twice daily) PO SCH (19:31)
[2017-10-03] MEDS: insulin glargine (Lantus) pen - multi-dose SQ SCH (21:00)
[2017-10-03 23:00] VITALS: BP 125/65
[2017-10-04] MEDS ORDERED: metoclopramide 5 mg/ml inj IV ONE (00:35)
[2017-10-04] MEDS: lactulose 20gm/30ml cup PO SCH ×4 (01:40→20:13)
[2017-10-04 03:00] VITALS: BP 118/55
[2017-10-04] MEDS: normal saline 1000ml 1,000 ML IV SCH (04:59)
[2017-10-04 06:00] VITALS: BP 130/76
[2017-10-04 06:11] LABS: HEMOGLOBIN 9.3 g/dl (12.0-16.0); MEAN CORPUSCULAR HEMOGLOBIN 26.6 PG (27.0-31.0); MEAN CORPUSCULAR VOLUME 80.6 FL (78-98); MEAN PLATELET VOLUME 7.8 FL (7.4-10.4); PLATELET COUNT 126 X10'3 (140-440); RED BLOOD COUNT 3.48 X10'6 (4.20-5.60); RED CELL DISTRIBUTION WIDTH 21.5 % (11.5-14.5)
[2017-10-04 06:29] LABS: ALANINE AMINOTRANSFERASE 25 U/L (12-78); ALBUMIN 2.4 G/DL (3.4-5.0); ALBUMIN/GLOBULIN RATIO 0.6 (1.1-1.5); ALKALINE PHOSPHATASE 158 IU/L (46-116); ANION GAP 11 (8-16); ASPARTATE AMINO TRANSFERASE 46 U/L (10-37); BILIRUBIN,TOTAL 0.9 MG/DL (0.1-1.0); BLOOD UREA NITROGEN 35 MG/DL (7-18); BUN/CREATININE RATIO 13.2 (6.6-38.0); CALCIUM 8.8 MG/DL (8.5-10.1); CHLORIDE 101 MMOL/L (99-107); CHOLESTEROL 160 MG/DL (0-200); CREATININE 2.65 MG/DL (0.40-0.90); GLUCOSE 69 MG/DL (70-104); HDL CHOLESTEROL 54 MG/DL (35-60); LDL CHOLESTEROL 89 MG/DL (50-100); MAGNESIUM 2.3 MG/DL (1.5-2.4); POTASSIUM 4.2 MMOL/L (3.5-5.1); SODIUM 130 MMOL/L (135-145); TOTAL PROTEIN 6.2 G/DL (6.4-8.2); TRIGLYCERIDES 81 MG/DL (20-135); eGFR 17 ML/MIN
[2017-10-04 06:31] LABS: ANISOCYTOSIS 3+; HYPOCHROMASIA 1+; MICROCYTOSIS 1+; PLATELET ESTIMATE DECREASED; TOTAL CELLS COUNTED 100
[2017-10-04] MEDS: levoTHYROXINE 25mcg tablet PO SCH (07:43)
[2017-10-04] MEDS: sucralfate 1 gm tablet PO SCH ×4 (07:43→20:13)
[2017-10-04] MEDS: diltiazem SR 60mg capsule (twice daily) PO SCH ×2 (07:44→20:13)
[2017-10-04] MEDS: pantoprazole 40mg Tablet.DR PO SCH (07:44)
[2017-10-04] MEDS: vitamin D (cholecalciferol) 1,000 unit tablet PO SCH (07:44)
[2017-10-04] MEDS ORDERED: enoxaparin 40mg/0.4ml syringe SQ SCH (08:00)
[2017-10-04] MEDS: K and/or MAG REPLACEMENT MC SCH (08:00)
[2017-10-04 11:00] VITALS: BP 153/69
[2017-10-04] MEDS ORDERED: enoxaparin 30mg/0.3ml syringe SQ SCH (12:50)
[2017-10-04 15:00] VITALS: BP 118/56
[2017-10-04 19:00] VITALS: BP 111/55
[2017-10-04] MEDS: insulin glargine (Lantus) pen - multi-dose SQ SCH (21:00)
[2017-10-04 23:00] VITALS: BP 129/69
[2017-10-05] MEDS: lactulose 20gm/30ml cup PO SCH ×4 (02:35→19:22)
[2017-10-05 03:00] VITALS: BP 140/64
[2017-10-05 05:51] LABS: HEMATOCRIT 28.4 % (35.0-45.0); HEMOGLOBIN 9.4 g/dl (12.0-16.0); MEAN CORPUSCULAR HEMOGLOBIN 26.8 PG (27.0-31.0); MEAN CORPUSCULAR HGB CONC 32.9 % (33.0-36.5); MEAN CORPUSCULAR VOLUME 81.4 FL (78-98); MEAN PLATELET VOLUME 7.8 FL (7.4-10.4); PLATELET COUNT 125 X10'3 (140-440); RED BLOOD COUNT 3.49 X10'6 (4.20-5.60); RED CELL DISTRIBUTION WIDTH 21.6 % (11.5-14.5); WHITE BLOOD COUNT 8.8 X10'3 (4.5-11.0)
[2017-10-05 05:55] VITALS: BP 118/58
[2017-10-05 06:04] LABS: ALANINE AMINOTRANSFERASE 31 U/L (12-78); ALBUMIN 2.4 G/DL (3.4-5.0); ALBUMIN/GLOBULIN RATIO 0.6 (1.1-1.5); ALKALINE PHOSPHATASE 186 IU/L (46-116); ANION GAP 13 (8-16); ASPARTATE AMINO TRANSFERASE 50 U/L (10-37); BILIRUBIN,TOTAL 0.7 MG/DL (0.1-1.0); BLOOD UREA NITROGEN 36 MG/DL (7-18); BUN/CREATININE RATIO 12.6 (6.6-38.0); CALCIUM 8.9 MG/DL (8.5-10.1); CHLORIDE 101 MMOL/L (99-107); CREATININE 2.85 MG/DL (0.40-0.90); GLUCOSE 109 MG/DL (70-104); MAGNESIUM 2.3 MG/DL (1.5-2.4); POTASSIUM 4.4 MMOL/L (3.5-5.1); SODIUM 130 MMOL/L (135-145); TOTAL CARBON DIOXIDE 16.2 MMOL/L (24-32); TOTAL PROTEIN 6.3 G/DL (6.4-8.2); eGFR 16 ML/MIN
[2017-10-05 07:55] LABS: ANISOCYTOSIS 3+; ELLIPTOCYTES 1+; EOSINOPHILS % (MANUAL) 2 % (0-6); LYMPHOCYTES % (MANUAL) 8 % (21-51); MONOCYTES % (MANUAL) 6 % (2-12); NEUTROPHILS % (MANUAL) 84 % (42-75); PLATELET ESTIMATE DECREASED; TOTAL CELLS COUNTED 100
[2017-10-05] MEDS: K and/or MAG REPLACEMENT MC SCH (08:00)
[2017-10-05] MEDS: pantoprazole 40mg Tablet.DR PO SCH (08:20)
[2017-10-05] MEDS: vitamin D (cholecalciferol) 1,000 unit tablet PO SCH (08:20)
[2017-10-05] MEDS: levoTHYROXINE 25mcg tablet PO SCH (08:21)
[2017-10-05] MEDS: diltiazem SR 60mg capsule (twice daily) PO SCH ×2 (09:50→19:21)
[2017-10-05] MEDS: sucralfate 1 gm tablet PO SCH ×4 (09:50→21:17)
[2017-10-05 10:39] VITALS: BP 132/66
[2017-10-05 18:00] VITALS: BP 100/40
[2017-10-05] MEDS: traMADol 50MG tablet PO PRN (19:21)
[2017-10-05] MEDS: rifaximin 550mg tablet PO SCH (19:22)
[2017-10-05] MEDS: insulin glargine (Lantus) pen - multi-dose SQ SCH (20:36)
[2017-10-05 22:39] VITALS: BP 151/73
[2017-10-06] MEDS: lactulose 20gm/30ml cup PO SCH ×4 (02:04→20:00)
[2017-10-06 06:11] VITALS: BP 133/64
[2017-10-06 06:14] LABS: HEMATOCRIT 28.6 % (35.0-45.0); HEMOGLOBIN 9.3 g/dl (12.0-16.0); MEAN CORPUSCULAR HEMOGLOBIN 26.7 PG (27.0-31.0); MEAN CORPUSCULAR HGB CONC 32.7 % (33.0-36.5); MEAN CORPUSCULAR VOLUME 81.6 FL (78-98); MEAN PLATELET VOLUME 8.1 FL (7.4-10.4); PLATELET COUNT 119 X10'3 (140-440); RED CELL DISTRIBUTION WIDTH 21.8 % (11.5-14.5); WHITE BLOOD COUNT 8.5 X10'3 (4.5-11.0)
[2017-10-06 06:32] LABS: ALANINE AMINOTRANSFERASE 25 U/L (12-78); ALBUMIN 2.5 G/DL (3.4-5.0); ALBUMIN/GLOBULIN RATIO 0.6 (1.1-1.5); ALKALINE PHOSPHATASE 205 IU/L (46-116); ANION GAP 13 (8-16); ASPARTATE AMINO TRANSFERASE 52 U/L (10-37); BLOOD UREA NITROGEN 41 MG/DL (7-18); BUN/CREATININE RATIO 14.6 (6.6-38.0); CALCIUM 9.2 MG/DL (8.5-10.1); CHLORIDE 101 MMOL/L (99-107); CREATININE 2.81 MG/DL (0.40-0.90); GLUCOSE 128 MG/DL (70-104); MAGNESIUM 2.2 MG/DL (1.5-2.4); POTASSIUM 4.5 MMOL/L (3.5-5.1); SODIUM 129 MMOL/L (135-145); TOTAL CARBON DIOXIDE 15.2 MMOL/L (24-32); TOTAL PROTEIN 6.4 G/DL (6.4-8.2); eGFR 16 ML/MIN
[2017-10-06] MEDS: K and/or MAG REPLACEMENT MC SCH (07:32)
[2017-10-06] MEDS: sucralfate 1 gm tablet PO SCH ×4 (07:35→21:00)
[2017-10-06] MEDS: rifaximin 550mg tablet PO SCH ×2 (07:35→20:00)
[2017-10-06] MEDS: diltiazem SR 60mg capsule (twice daily) PO SCH ×2 (07:35→20:00)
[2017-10-06] MEDS: vitamin D (cholecalciferol) 1,000 unit tablet PO SCH (07:35)
[2017-10-06] MEDS: pantoprazole 40mg Tablet.DR PO SCH (07:36)
[2017-10-06] MEDS: levoTHYROXINE 25mcg tablet PO SCH (07:36)
[2017-10-06 07:40] LABS: TOTAL CELLS COUNTED 100
[2017-10-06 07:41] LABS: TOXIC GRANULATION 1+
[2017-10-06 07:42] LABS: PLATELET ESTIMATE DECREASED
[2017-10-06 07:43] LABS: ELLIPTOCYTES 1+
[2017-10-06 10:10] VITALS: BP 150/68
[2017-10-06] MEDS: traMADol 50MG tablet PO PRN (16:33)
[2017-10-06 18:00] VITALS: BP 121/57
[2017-10-06] MEDS: insulin glargine (Lantus) pen - multi-dose SQ SCH (21:00)
[2017-10-06 22:00] VITALS: BP 141/69
[2017-10-07] MEDS: lactulose 20gm/30ml cup PO SCH ×4 (02:00→20:00)
[2017-10-07 06:00] VITALS: BP 131/64
[2017-10-07 06:22] LABS: HEMATOCRIT 26.6 % (35.0-45.0); HEMOGLOBIN 8.9 g/dl (12.0-16.0); MEAN CORPUSCULAR HEMOGLOBIN 27.1 PG (27.0-31.0); MEAN CORPUSCULAR HGB CONC 33.3 % (33.0-36.5); MEAN CORPUSCULAR VOLUME 81.3 FL (78-98); MEAN PLATELET VOLUME 7.5 FL (7.4-10.4); PLATELET COUNT 114 X10'3 (140-440); RED BLOOD COUNT 3.27 X10'6 (4.20-5.60); RED CELL DISTRIBUTION WIDTH 21.7 % (11.5-14.5); WHITE BLOOD COUNT 8.5 X10'3 (4.5-11.0)
[2017-10-07 06:35] LABS: ALANINE AMINOTRANSFERASE 27 U/L (12-78); ALBUMIN 2.3 G/DL (3.4-5.0); ALBUMIN/GLOBULIN RATIO 0.6 (1.1-1.5); ALKALINE PHOSPHATASE 149 IU/L (46-116); ANION GAP 10 (8-16); ASPARTATE AMINO TRANSFERASE 54 U/L (10-37); BILIRUBIN,TOTAL 1.2 MG/DL (0.1-1.0); BLOOD UREA NITROGEN 41 MG/DL (7-18); BUN/CREATININE RATIO 14.9 (6.6-38.0); CHLORIDE 103 MMOL/L (99-107); CREATININE 2.75 MG/DL (0.40-0.90); GLUCOSE 97 MG/DL (70-104); MAGNESIUM 2.2 MG/DL (1.5-2.4); POTASSIUM 4.3 MMOL/L (3.5-5.1); SODIUM 130 MMOL/L (135-145); TOTAL CARBON DIOXIDE 17.1 MMOL/L (24-32); TOTAL PROTEIN 5.9 G/DL (6.4-8.2); eGFR 17 ML/MIN
[2017-10-07] MEDS: pantoprazole 40mg Tablet.DR PO SCH (07:30)
[2017-10-07] MEDS: levoTHYROXINE 25mcg tablet PO SCH (07:30)
[2017-10-07] MEDS: diltiazem SR 60mg capsule (twice daily) PO SCH ×2 (07:30→20:00)
[2017-10-07] MEDS: rifaximin 550mg tablet PO SCH ×2 (07:30→20:00)
[2017-10-07] MEDS: sucralfate 1 gm tablet PO SCH ×4 (07:30→21:00)
[2017-10-07] MEDS: K and/or MAG REPLACEMENT MC SCH (07:30)
[2017-10-07] MEDS: vitamin D (cholecalciferol) 1,000 unit tablet PO SCH (07:30)
[2017-10-07 08:10] LABS: ANISOCYTOSIS 3+; HYPOCHROMASIA 1+; PLATELET ESTIMATE DECREASED; TOTAL CELLS COUNTED 100
[2017-10-07 10:00] VITALS: BP 137/67
[2017-10-07 18:00] VITALS: BP 127/65
[2017-10-07] MEDS: insulin glargine (Lantus) pen - multi-dose SQ SCH (21:00)
[2017-10-07 22:00] VITALS: BP 118/63
[2017-10-08] MEDS: lactulose 20gm/30ml cup PO SCH ×2 (02:00→07:59)
[2017-10-08 07:23] LABS: HEMATOCRIT 25.4 % (35.0-45.0); HEMOGLOBIN 8.5 g/dl (12.0-16.0); MEAN CORPUSCULAR HEMOGLOBIN 27.1 PG (27.0-31.0); MEAN CORPUSCULAR HGB CONC 33.3 % (33.0-36.5); MEAN CORPUSCULAR VOLUME 81.3 FL (78-98); MEAN PLATELET VOLUME 7.7 FL (7.4-10.4); PLATELET COUNT 102 X10'3 (140-440); RED BLOOD COUNT 3.12 X10'6 (4.20-5.60); RED CELL DISTRIBUTION WIDTH 21.7 % (11.5-14.5); WHITE BLOOD COUNT 8.4 X10'3 (4.5-11.0)
[2017-10-08 07:28] LABS: ALANINE AMINOTRANSFERASE 27 U/L (12-78); ALBUMIN 2.2 G/DL (3.4-5.0); ALBUMIN/GLOBULIN RATIO 0.6 (1.1-1.5); ALKALINE PHOSPHATASE 156 IU/L (46-116); ANION GAP 13 (8-16); ASPARTATE AMINO TRANSFERASE 49 U/L (10-37); BILIRUBIN,TOTAL 0.8 MG/DL (0.1-1.0); BLOOD UREA NITROGEN 44 MG/DL (7-18); BUN/CREATININE RATIO 15.6 (6.6-38.0); CALCIUM 8.9 MG/DL (8.5-10.1); CHLORIDE 102 MMOL/L (99-107); CREATININE 2.82 MG/DL (0.40-0.90); GLUCOSE 110 MG/DL (70-104); MAGNESIUM 2.2 MG/DL (1.5-2.4); POTASSIUM 4.1 MMOL/L (3.5-5.1); SODIUM 133 MMOL/L (135-145); TOTAL CARBON DIOXIDE 17.7 MMOL/L (24-32); TOTAL PROTEIN 5.7 G/DL (6.4-8.2); eGFR 16 ML/MIN
[2017-10-08 07:43] LABS: ANISOCYTOSIS 3+; MICROCYTOSIS 1+; PLATELET ESTIMATE DECREASED; TOTAL CELLS COUNTED 100
[2017-10-08 07:44] LABS: POIKILOCYTOSIS FEW; POLYCHROMASIA FEW
[2017-10-08] MEDS: K and/or MAG REPLACEMENT MC SCH (07:54)
[2017-10-08] MEDS: rifaximin 550mg tablet PO SCH (07:59)
[2017-10-08] MEDS: vitamin D (cholecalciferol) 1,000 unit tablet PO SCH (07:59)
[2017-10-08] MEDS: sucralfate 1 gm tablet PO SCH (07:59)
[2017-10-08] MEDS: diltiazem SR 60mg capsule (twice daily) PO SCH (07:59)
[2017-10-08] MEDS: pantoprazole 40mg Tablet.DR PO SCH (07:59)
[2017-10-08] MEDS: levoTHYROXINE 25mcg tablet PO SCH (07:59)
== END 2017-10-08 10:15 | DRG 441 ==
LOC: ER 10:15 → ED HOLD 12:59 → PCU 3S 14:16 → CMPBEDREQ 19:31 → ORTHO 4S 10-05 05:59
PROVIDERS: ADMIT Family Medicine; ATTEND Internal Medicine
DX: K72.90 Hepatic failure, unspecified without coma (principal); K76.7 Hepatorenal syndrome; N17.9 Acute kidney failure, unspecified; E87.1 Hypo-osmolality and hyponatremia; R18.8 Other ascites; I85.10 Secondary esophageal varices without bleeding; D63.8 Anemia in other chronic diseases classified elsewhere; E03.9 Hypothyroidism, unspecified; E11.22 Type 2 diabetes mellitus with diabetic chronic kidney disease; E78.00 Pure hypercholesterolemia, unspecified; K21.9 Gastro-esophageal reflux disease without esophagitis; K22.70 Barrett's esophagus without dysplasia; K74.60 Unspecified cirrhosis of liver; K76.0 Fatty (change of) liver, not elsewhere classified; N18.9 Chronic kidney disease, unspecified; I12.9 Hypertensive chronic kidney disease with stage 1 through stage 4 chronic kidney disease, or unspecified chronic kidney disease; E11.649 Type 2 diabetes mellitus with hypoglycemia without coma; K64.8 Other hemorrhoids; Z96.651 Presence of right artificial knee joint; Z90.49 Acquired absence of other specified parts of digestive tract; Z88.8 Allergy status to other drugs, medicaments and biological substances; Z88.5 Allergy status to narcotic agent; Z91.013 Allergy to seafood; Z79.4 Long term (current) use of insulin; Z79.899 Other long term (current) drug therapy; Z86.711 Personal history of pulmonary embolism; Z87.440 Personal history of urinary (tract) infections
CPT/HCPCS: 36415; 80053; 80061; 81003; 82140; 82948; 83690; 83735; 84443; 85025; 85610; 87070; 93005; 94760; 96361; 96374; 97110; 97116; 97162; 97530; 99285; A4620; J1815; J2405; J2765; J7030; J8597

== ENCOUNTER 2017-10-10 12:53 | Inpatient (IN) | payer MEDICARE, BC ==
[~2017-10-10] VITALS: Ht 162.6 cm; Wt 96.0 kg
[~2017-10-10 12:53] MED LIST changes: -FURO-150 PO; -ONDA4TAB6 PO; -PHE12.5R RC; +PROM25TA14 PO; -RIFA550T PO; -SPIR100T5 PO
[2017-10-10] MEDS ORDERED: normal saline 1000ML IV soln IVB ONE (13:10)
[2017-10-10 13:53] LABS: BASOPHILS # (AUTO) 0.1 X10'3 (0-0.2); BASOPHILS % (AUTO) 1.6 % (0-1); EOSINOPHILS # (AUTO) 0.1 X10'3 (0-0.9); EOSINOPHILS % (AUTO) 1.4 % (0-6); HEMATOCRIT 29.5 % (35.0-45.0); HEMOGLOBIN 9.5 g/dl (12.0-16.0); LYMPHOCYTES % (AUTO) 12.2 % (21-51); MEAN CORPUSCULAR HEMOGLOBIN 26.9 PG (27.0-31.0); MEAN CORPUSCULAR HGB CONC 32.3 % (33.0-36.5); MEAN CORPUSCULAR VOLUME 83.3 FL (78-98); MEAN PLATELET VOLUME 7.9 FL (7.4-10.4); MONOCYTES # (AUTO) 0.8 X10'3 (0-0.9); MONOCYTES % (AUTO) 9.8 % (2-12); NEUTROPHILS # (AUTO) 5.9 X10'3 (1.8-7.7); PLATELET COUNT 115 X10'3 (140-440); RED BLOOD COUNT 3.54 X10'6 (4.20-5.60); RED CELL DISTRIBUTION WIDTH 20.4 % (11.5-14.5); WHITE BLOOD COUNT 7.9 X10'3 (4.5-11.0)
[2017-10-10 14:05] LABS: INR 1.2 INR; PARTIAL THROMBOPLASTIN TIME 27 SECONDS (22-32)
[2017-10-10 14:10] LABS: LACTIC SEPSIS 2.1 MMOL/L (0.4-2.0)
[2017-10-10 14:33] LABS: ALANINE AMINOTRANSFERASE 34 U/L (12-78); ALBUMIN 2.5 G/DL (3.4-5.0); ALBUMIN/GLOBULIN RATIO 0.6 (1.1-1.5); ALKALINE PHOSPHATASE 192 IU/L (46-116); ANION GAP 11 (8-16); ASPARTATE AMINO TRANSFERASE 62 U/L (10-37); BILIRUBIN,TOTAL 0.8 MG/DL (0.1-1.0); BLOOD UREA NITROGEN 45 MG/DL (7-18); BUN/CREATININE RATIO 17.4 (6.6-38.0); CALCIUM 9.3 MG/DL (8.5-10.1); CHLORIDE 103 MMOL/L (99-107); CREATININE 2.58 MG/DL (0.40-0.90); GLUCOSE 113 MG/DL (70-104); POTASSIUM 4.6 MMOL/L (3.5-5.1); SODIUM 133 MMOL/L (135-145); TOTAL CARBON DIOXIDE 18.8 MMOL/L (24-32); TOTAL PROTEIN 6.6 G/DL (6.4-8.2); eGFR 18 ML/MIN
[2017-10-10] MEDS ORDERED: naloxone 0.4 mg/ml inj IV ONE (15:05)
[2017-10-10] MEDS ORDERED: CefTRIAXone 2gm/D5W 50ml 50 ML IV ONE (15:15)
[2017-10-10 15:31] LABS: CLARITY,URINE SLIGHTLY CLOUDY (Clear); COLOR,URINE YELLOW (Yellow); GLUCOSE, URINE NEGATIVE (Neg); KETONES,URINE NEGATIVE (Neg); LEUKOCYTE ESTERASE ,URINE MODERATE (Neg); NITRITES, URINE POSITIVE (Neg); OCCULT BLOOD,URINE LARGE (Neg); PROTEIN,URINE NEGATIVE (Neg); UROBILINOGEN,URINE 0.2 E.U/dL (0.2-1.0)
[2017-10-10 15:32] LABS: UA COLLECTION TYPE STRAIGHT CATH
[2017-10-10 15:40] LABS: URINE AMPHETAMINE SCREEN NEGATIVE (Neg); URINE BARBITUATE SCREEN NEGATIVE (Neg); URINE BENZODIAZEPINES SCREEN NEGATIVE (Neg); URINE CANNABINOID SCREEN NEGATIVE (Neg); URINE COCAINE SCREEN NEGATIVE (Neg); URINE METHADONE SCREEN NEGATIVE (Neg); URINE OPIATE SCREEN NEGATIVE (Neg); URINE PHENCYCLIDINE SCREEN NEGATIVE (Neg)
[2017-10-10 15:41] LABS: BACTERIA,URINE 4+ /HPF (Neg); RBC,URINE 50-100 /HPF (0-2); SQUAMOUS EPITHELIAL CELL,UR FEW /LPF (FEW); WBC,URINE TNTC /HPF (0-4)
[2017-10-10] MEDS ORDERED: CEPH500C5 PO (15:45)
[2017-10-10] MEDS ORDERED: IPRA3AMP31 IH (19:52)
[2017-10-10] MEDS ORDERED: RIFA550T PO (19:52)
[2017-10-10] MEDS ORDERED: magnesium hydroxide 30ml (MOM) UD suspension PO PRN (20:00)
[2017-10-10] MEDS: docusate sod 100mg capsule PO SCH (20:00)
[2017-10-10] MEDS ORDERED: mag hydrox/Alum hydrox/simeth 30ml oral suspension PO PRN (20:00)
[2017-10-10] MEDS ORDERED: acetaminophen 325mg tablet PO PRN (20:00)
[2017-10-10] MEDS ORDERED: ondansetron/PF 4mg/2ml inj IV PRN (20:00)
[2017-10-10] MEDS ORDERED: dextrose 50%-water 50ml dispensing syringe IV PRN ×2 (20:05)
[2017-10-10] MEDS ORDERED: MESSAGE TO PHARMACY PO ONE (20:05)
[2017-10-10] MEDS ORDERED: insulin Lispro (HumaLOG) vial - multi-dose SQ SCH (20:05)
[2017-10-10] MEDS ORDERED: dextrose ORAL solution 15 GM/59 ML bottle PO PRN ×2 (20:05)
[2017-10-10] MEDS ORDERED: glucagon, human recombinant 1mg kit SUBCUT PRN (20:05)
[2017-10-10] MEDS ORDERED: INSULIN DETEMIR 60 UNIT SQ SCH (21:00)
[2017-10-10] MEDS ORDERED: insulin glargine (Lantus) pen - multi-dose SQ SCH ×2 (21:00)
[2017-10-10 21:45] VITALS: BP 143/66
[2017-10-10] MEDS: lactulose 20gm/30ml cup PO SCH (21:54)
[2017-10-10] MEDS: sucralfate 1 gm tablet PO SCH (22:01)
[2017-10-10] MEDS: heparin, porcine 5000 units/ml vial SQ SCH (22:03)
[2017-10-10] MEDS: rifaximin 550mg tablet PO SCH (22:14)
[2017-10-11] MEDS: lactulose 20gm/30ml cup PO SCH ×2 (02:09→08:20)
[2017-10-11 05:00] VITALS: BP 139/81
[2017-10-11 06:43] LABS: BASOPHILS % (AUTO) 0 % (0-1); EOSINOPHILS # (AUTO) 0.2 X10'3 (0-0.9); EOSINOPHILS % (AUTO) 2.9 % (0-6); HEMATOCRIT 27.4 % (35.0-45.0); LYMPHOCYTES # (AUTO) 1.1 X10'3 (1.1-4.8); LYMPHOCYTES % (AUTO) 14.8 % (21-51); MEAN CORPUSCULAR HGB CONC 32.9 % (33.0-36.5); MEAN CORPUSCULAR VOLUME 82.1 FL (78-98); MEAN PLATELET VOLUME 7.7 FL (7.4-10.4); MONOCYTES # (AUTO) 0.7 X10'3 (0-0.9); MONOCYTES % (AUTO) 8.7 % (2-12); NEUTROPHILS # (AUTO) 5.7 X10'3 (1.8-7.7); NEUTROPHILS % (AUTO) 73.6 % (42-75); PLATELET COUNT 103 X10'3 (140-440); RED BLOOD COUNT 3.33 X10'6 (4.20-5.60); RED CELL DISTRIBUTION WIDTH 21.8 % (11.5-14.5); WHITE BLOOD COUNT 7.8 X10'3 (4.5-11.0)
[2017-10-11 07:03] LABS: ALANINE AMINOTRANSFERASE 34 U/L (12-78); ALBUMIN 2.2 G/DL (3.4-5.0); ALBUMIN/GLOBULIN RATIO 0.6 (1.1-1.5); ALKALINE PHOSPHATASE 161 IU/L (46-116); ANION GAP 13 (8-16); ASPARTATE AMINO TRANSFERASE 66 U/L (10-37); BILIRUBIN,TOTAL 0.8 MG/DL (0.1-1.0); BLOOD UREA NITROGEN 43 MG/DL (7-18); BUN/CREATININE RATIO 18.7 (6.6-38.0); CALCIUM 9.2 MG/DL (8.5-10.1); CHLORIDE 108 MMOL/L (99-107); GLUCOSE 115 MG/DL (70-104); POTASSIUM 4.5 MMOL/L (3.5-5.1); SODIUM 136 MMOL/L (135-145); TOTAL CARBON DIOXIDE 15.1 MMOL/L (24-32); TOTAL PROTEIN 5.9 G/DL (6.4-8.2); eGFR 21 ML/MIN
[2017-10-11 07:14] LABS: PLATELET ESTIMATE DECREASED
[2017-10-11 07:15] LABS: ANISOCYTOSIS 3+; HYPOCHROMASIA 1+
[2017-10-11] MEDS ORDERED: pantoprazole 40mg Tablet.DR PO SCH (07:30)
[2017-10-11] MEDS ORDERED: levoTHYROXINE 25mcg tablet PO SCH (08:00)
[2017-10-11] MEDS: docusate sod 100mg capsule PO SCH (08:00)
[2017-10-11] MEDS: rifaximin 550mg tablet PO SCH (08:00)
[2017-10-11] MEDS ORDERED: CefTRIAXone/D5W-Rocephin 1gm 50 ML IV SCH (08:00)
[2017-10-11] MEDS: sucralfate 1 gm tablet PO SCH (08:20)
[2017-10-11] MEDS: heparin, porcine 5000 units/ml vial SQ SCH (08:20)
[2017-10-11] MEDS ORDERED: morphine ORAL 5MG/0.25 ML (Conc. morphine) oral syringe PO PRN (09:25)
[2017-10-11] MEDS ORDERED: LORazepam 1 MG tablet PO PRN (09:25)
[2017-10-11 12:00] VITALS: BP 151/82
[2017-10-11 18:00] VITALS: BP 141/80
[2017-10-12 06:00] VITALS: BP 124/67
[2017-10-12 10:00] VITALS: BP 154/70
[2017-10-12] MEDS ORDERED: CefTRIAXone/D5W-Rocephin 1gm 50 ML IV SCH (19:00)
[2017-10-12 22:00] VITALS: BP 140/65
[2017-10-13 06:00] VITALS: BP 140/66
[2017-10-13] MEDS ORDERED: levoFLOXACIN 250mg tablet PO SCH (08:00)
[2017-10-13 10:03] VITALS: BP 140/80
[2017-10-13] MEDS ORDERED: LIDOcaine 0.5% (5mg/ml) 50ml vial ONE (10:37)
[2017-10-13 10:52] VITALS: BP 144/73
[2017-10-13 11:03] VITALS: BP 130/62
[2017-10-13] MEDS ORDERED: albumin (human) 25% 100 ML IV solution IV ONE (13:30)
[2017-10-13] MEDS: sucralfate 1 gm tablet PO SCH ×2 (16:01→20:36)
[2017-10-13 16:16] LABS: ALANINE AMINOTRANSFERASE 34 U/L (12-78); ALBUMIN/GLOBULIN RATIO 0.5 (1.1-1.5); ALKALINE PHOSPHATASE 253 IU/L (46-116); ANION GAP 10 (8-16); ASPARTATE AMINO TRANSFERASE 69 U/L (10-37); BILIRUBIN,TOTAL 0.6 MG/DL (0.1-1.0); BLOOD UREA NITROGEN 39 MG/DL (7-18); BUN/CREATININE RATIO 20.1 (6.6-38.0); CALCIUM 8.6 MG/DL (8.5-10.1); CHLORIDE 104 MMOL/L (99-107); CREATININE 1.94 MG/DL (0.40-0.90); GLUCOSE 169 MG/DL (70-104); POTASSIUM 4.2 MMOL/L (3.5-5.1); SODIUM 131 MMOL/L (135-145); TOTAL CARBON DIOXIDE 17.2 MMOL/L (24-32); TOTAL PROTEIN 5.7 G/DL (6.4-8.2); eGFR 25 ML/MIN
[2017-10-13 16:43] LABS: BASOPHILS % (AUTO) 0.2 % (0-1); EOSINOPHILS # (AUTO) 0.2 X10'3 (0-0.9); EOSINOPHILS % (AUTO) 2.8 % (0-6); HEMATOCRIT 26.8 % (35.0-45.0); HEMOGLOBIN 8.9 g/dl (12.0-16.0); LYMPHOCYTES # (AUTO) 0.4 X10'3 (1.1-4.8); LYMPHOCYTES % (AUTO) 6.5 % (21-51); MEAN CORPUSCULAR HGB CONC 33.3 % (33.0-36.5); MEAN PLATELET VOLUME 7.2 FL (7.4-10.4); MONOCYTES # (AUTO) 0.7 X10'3 (0-0.9); MONOCYTES % (AUTO) 10.3 % (2-12); NEUTROPHILS # (AUTO) 5.3 X10'3 (1.8-7.7); NEUTROPHILS % (AUTO) 80.2 % (42-75); PLATELET COUNT 95 X10'3 (140-440); RED CELL DISTRIBUTION WIDTH 20.5 % (11.5-14.5); WHITE BLOOD COUNT 6.7 X10'3 (4.5-11.0)
[2017-10-13 17:05] LABS: ANISOCYTOSIS 3+; PLATELET ESTIMATE DECREASED
[2017-10-13 17:06] LABS: HYPOCHROMASIA 1+; POLYCHROMASIA FEW; SCHISTOCYTES FEW
[2017-10-13 18:00] VITALS: BP 120/50
[2017-10-13] MEDS: lactulose 20gm/30ml cup PO SCH (20:36)
[2017-10-13 22:00] VITALS: BP 116/61
[2017-10-14] MEDS ORDERED: levoTHYROXINE 25mcg tablet PO SCH (07:00)
[2017-10-14 07:18] LABS: BASOPHILS % (AUTO) 0.1 % (0-1); EOSINOPHILS # (AUTO) 0.2 X10'3 (0-0.9); HEMATOCRIT 24.5 % (35.0-45.0); HEMOGLOBIN 8.1 g/dl (12.0-16.0); LYMPHOCYTES # (AUTO) 0.8 X10'3 (1.1-4.8); LYMPHOCYTES % (AUTO) 14.9 % (21-51); MEAN CORPUSCULAR HEMOGLOBIN 27.1 PG (27.0-31.0); MEAN CORPUSCULAR HGB CONC 33.1 % (33.0-36.5); MEAN PLATELET VOLUME 7.3 FL (7.4-10.4); MONOCYTES # (AUTO) 0.6 X10'3 (0-0.9); MONOCYTES % (AUTO) 10.6 % (2-12); NEUTROPHILS # (AUTO) 3.9 X10'3 (1.8-7.7); NEUTROPHILS % (AUTO) 70.4 % (42-75); PLATELET COUNT 105 X10'3 (140-440); RED BLOOD COUNT 2.99 X10'6 (4.20-5.60); RED CELL DISTRIBUTION WIDTH 22.1 % (11.5-14.5); WHITE BLOOD COUNT 5.6 X10'3 (4.5-11.0)
[2017-10-14] MEDS ORDERED: pantoprazole 40mg Tablet.DR PO SCH (07:30)
[2017-10-14] MEDS: sucralfate 1 gm tablet PO SCH ×2 (07:35→12:28)
[2017-10-14] MEDS: lactulose 20gm/30ml cup PO SCH ×2 (07:36→12:28)
[2017-10-14 07:52] LABS: ALANINE AMINOTRANSFERASE 43 U/L (12-78); ALBUMIN 2.2 G/DL (3.4-5.0); ALBUMIN/GLOBULIN RATIO 0.7 (1.1-1.5); ALKALINE PHOSPHATASE 220 IU/L (46-116); ANION GAP 10 (8-16); ASPARTATE AMINO TRANSFERASE 71 U/L (10-37); BILIRUBIN,TOTAL 0.7 MG/DL (0.1-1.0); BLOOD UREA NITROGEN 35 MG/DL (7-18); BUN/CREATININE RATIO 18.8 (6.6-38.0); CALCIUM 8.6 MG/DL (8.5-10.1); CHLORIDE 106 MMOL/L (99-107); CREATININE 1.86 MG/DL (0.40-0.90); GLUCOSE 100 MG/DL (70-104); POTASSIUM 3.9 MMOL/L (3.5-5.1); SODIUM 135 MMOL/L (135-145); TOTAL CARBON DIOXIDE 19.2 MMOL/L (24-32); TOTAL PROTEIN 5.5 G/DL (6.4-8.2); eGFR 26 ML/MIN
[2017-10-14] MEDS ORDERED: levoFLOXACIN 250mg tablet PO SCH (08:00)
[2017-10-14 09:07] LABS: ANISOCYTOSIS 3+; HYPOCHROMASIA 1+; PLATELET ESTIMATE DECREASED
[2017-10-14 09:08] LABS: ELLIPTOCYTES 1+
[2017-10-14 10:31] VITALS: BP 123/57
[2017-10-14] MEDS ORDERED: lactobacillus rhamnosus 10,000 MMU CELLS/CAPSULE PO SCH (20:00)
== END 2017-10-14 17:10 | DRG 917 ==
LOC: ER 12:53 → ED HOLD 19:57 → ORTHO 4S 21:30 → CMPBEDREQ 21:47 → ORTHO 4S 10-11 16:30
PROVIDERS: ADMIT Internal Medicine; ATTEND Family Medicine
PROC: 0W9G3ZZ Drainage of Peritoneal Cavity, Percutaneous Approach (ICD-10-PCS; principal; 2017-10-13)
DX: T40.601A Poisoning by unspecified narcotics, accidental (unintentional), initial encounter (principal); G93.40 Encephalopathy, unspecified; K76.7 Hepatorenal syndrome; E43 Unspecified severe protein-calorie malnutrition; N39.0 Urinary tract infection, site not specified; R18.8 Other ascites; E87.2 Acidosis; E87.1 Hypo-osmolality and hyponatremia; K74.60 Unspecified cirrhosis of liver; K72.90 Hepatic failure, unspecified without coma; K75.81 Nonalcoholic steatohepatitis (NASH); E11.22 Type 2 diabetes mellitus with diabetic chronic kidney disease; E78.00 Pure hypercholesterolemia, unspecified; I12.9 Hypertensive chronic kidney disease with stage 1 through stage 4 chronic kidney disease, or unspecified chronic kidney disease; Z96.651 Presence of right artificial knee joint; E03.9 Hypothyroidism, unspecified; K21.9 Gastro-esophageal reflux disease without esophagitis; E86.0 Dehydration; D64.9 Anemia, unspecified; N18.9 Chronic kidney disease, unspecified; Z51.5 Encounter for palliative care; Z66 Do not resuscitate; Z90.710 Acquired absence of both cervix and uterus; Z88.8 Allergy status to other drugs, medicaments and biological substances; Z88.5 Allergy status to narcotic agent; Z91.013 Allergy to seafood; Z90.49 Acquired absence of other specified parts of digestive tract; Z93.2 Ileostomy status; Z79.899 Other long term (current) drug therapy; Z79.4 Long term (current) use of insulin; Z86.711 Personal history of pulmonary embolism; Z68.36 Body mass index [BMI] 36.0-36.9, adult
CPT/HCPCS: 36415; 49083; 70450; 71045; 74176; 80053; 80305; 81001; 82140; 82948; 83605; 84145; 84443; 85025; 85610; 85730; 87040; 87070; 87077; 87088; 87186; 93005; 96361; 96365; 96366; 96375; 97116; 97161; 99285; J0696; J1644; J1815; J2001; J2310; J7030; P9047

== ENCOUNTER 2017-10-31 07:28 | Day surgery (SDC) | payer BC, MEDICARE, OTHER ==
[2017-10-31] VITALS (7 sets, daily range): BP systolic 103–157; BP diastolic 44–110
[~2017-10-31] VITALS: Ht 157.5 cm; Wt 106.0 kg
[~2017-10-31 07:28] MED LIST changes: -CARSR60C PO; +IPRA3AMP31 IH; +LIDOcaine 1%/PF 5ML 10 MG/ML VIAL SQ ONE; +RIFA550T PO
[2017-10-31] MEDS ORDERED: normal saline 1000ml 1,000 ML IV PRN (07:50)
[2017-10-31] MEDS ORDERED: albumin (human) 25% 100 ML IV solution IV PRN (07:50)
[2017-10-31] MEDS ORDERED: POLY17PO10 PO (09:11)
[2017-10-31] MEDS ORDERED: DOCU-28 PO (09:11)
[2017-10-31] MEDS ORDERED: MELA3TAB PO (09:11)
[2017-10-31] MEDS ORDERED: MULT-1002 PO (09:11)
[2017-10-31] MEDS ORDERED: OMEP20TA23 PO (09:11)
[2017-10-31] MEDS ORDERED: OXYC5CAP19 PO (09:11)
[2017-10-31] MEDS ORDERED: LACT10SO7 PO (09:11)
== END 2017-10-31 10:30 ==
LOC: SSTAY O 07:28
PROVIDERS: ATTEND Radiology Diagnostic Radiology
DX: R18.8 Other ascites (principal); K75.81 Nonalcoholic steatohepatitis (NASH); E66.01 Morbid (severe) obesity due to excess calories; E11.22 Type 2 diabetes mellitus with diabetic chronic kidney disease; I12.9 Hypertensive chronic kidney disease with stage 1 through stage 4 chronic kidney disease, or unspecified chronic kidney disease; N18.3 Chronic kidney disease, stage 3 (moderate); E78.5 Hyperlipidemia, unspecified; K21.9 Gastro-esophageal reflux disease without esophagitis; M19.90 Unspecified osteoarthritis, unspecified site; F41.8 Other specified anxiety disorders; I08.0 Rheumatic disorders of both mitral and aortic valves; E03.9 Hypothyroidism, unspecified; Z86.711 Personal history of pulmonary embolism; Z91.013 Allergy to seafood; Z88.4 Allergy status to anesthetic agent; Z88.5 Allergy status to narcotic agent; Z90.710 Acquired absence of both cervix and uterus; Z88.6 Allergy status to analgesic agent; Z85.828 Personal history of other malignant neoplasm of skin; Z87.440 Personal history of urinary (tract) infections; Z93.2 Ileostomy status; Z90.49 Acquired absence of other specified parts of digestive tract; Z72.89 Other problems related to lifestyle; Z96.651 Presence of right artificial knee joint; Z79.891 Long term (current) use of opiate analgesic; Z79.4 Long term (current) use of insulin; Z68.41 Body mass index [BMI] 40.0-44.9, adult; Z86.69 Personal history of other diseases of the nervous system and sense organs; Z98.890 Other specified postprocedural states; Z79.899 Other long term (current) drug therapy; Z88.8 Allergy status to other drugs, medicaments and biological substances; Z80.9 Family history of malignant neoplasm, unspecified
CPT/HCPCS: 49083; A6257; J2001; J7030; P9047

== ENCOUNTER 2017-11-16 13:09 | Inpatient (IN) | payer MEDICARE, BC ==
[~2017-11-16] VITALS: Ht 165.1 cm; Wt 100.0 kg
[~2017-11-16 13:09] MED LIST changes: -ACET-3067 PO; -CHOL10002 PO; +DOCU-28 PO; -ESOM40CA30 PO; +LACT10SO7 PO; -LIDOcaine 1%/PF 5ML 10 MG/ML VIAL SQ ONE; +MELA3TAB PO; +MULT-1002 PO; +OMEP20TA23 PO; +OXYC5CAP19 PO; +POLY17PO10 PO
[2017-11-16] MEDS ORDERED: ondansetron/PF 4mg/2ml inj IV ONE (14:05)
[2017-11-16] MEDS ORDERED: morphine 4 MG/ML inj SYRINge IV PRN (14:05)
[2017-11-16 14:36] LABS: ALANINE AMINOTRANSFERASE 36 U/L (12-78); ALBUMIN 2.7 G/DL (3.4-5.0); ALBUMIN/GLOBULIN RATIO 0.8 (1.1-1.5); ALKALINE PHOSPHATASE 267 IU/L (46-116); ANION GAP 12 (8-16); ASPARTATE AMINO TRANSFERASE 56 U/L (10-37); BLOOD UREA NITROGEN 19 MG/DL (7-18); BUN/CREATININE RATIO 9.9 (6.6-38.0); CALCIUM 9.1 MG/DL (8.5-10.1); CHLORIDE 104 MMOL/L (99-107); CREATININE 1.91 MG/DL (0.40-0.90); GLUCOSE 172 MG/DL (70-104); POTASSIUM 3.7 MMOL/L (3.5-5.1); SODIUM 134 MMOL/L (135-145); TOTAL CARBON DIOXIDE 17.9 MMOL/L (24-32); TOTAL PROTEIN 6.3 G/DL (6.4-8.2); eGFR 25 ML/MIN
[2017-11-16 14:38] LABS: MAGNESIUM 2.3 MG/DL (1.5-2.4)
[2017-11-16 14:43] LABS: WHITE BLOOD COUNT 8.4 X10'3 (4.5-11.0)
[2017-11-16 14:44] LABS: BASOPHILS # (AUTO) 0.1 X10'3 (0-0.2); BASOPHILS % (AUTO) 1.7 % (0-1); EOSINOPHILS # (AUTO) 0.2 X10'3 (0-0.9); EOSINOPHILS % (AUTO) 2.2 % (0-6); HEMATOCRIT 27.5 % (35.0-45.0); HEMOGLOBIN 8.8 g/dl (12.0-16.0); LYMPHOCYTES # (AUTO) 0.4 X10'3 (1.1-4.8); LYMPHOCYTES % (AUTO) 4.7 % (21-51); MEAN CORPUSCULAR HEMOGLOBIN 26.7 PG (27.0-31.0); MEAN CORPUSCULAR HGB CONC 32.1 % (33.0-36.5); MEAN CORPUSCULAR VOLUME 83.3 FL (78-98); MEAN PLATELET VOLUME 7.3 FL (7.4-10.4); MONOCYTES # (AUTO) 0.8 X10'3 (0-0.9); MONOCYTES % (AUTO) 9.4 % (2-12); NEUTROPHILS # (AUTO) 6.9 X10'3 (1.8-7.7); PLATELET COUNT 142 X10'3 (140-440); RED BLOOD COUNT 3.31 X10'6 (4.20-5.60); RED CELL DISTRIBUTION WIDTH 19.6 % (11.5-14.5)
[2017-11-16] MEDS ORDERED: OMEP40CA37 PO (14:57)
[2017-11-16] MEDS ORDERED: normal saline 1000ml 1,000 ML IV SCH (19:44)
[2017-11-16] MEDS ORDERED: ondansetron/PF 4mg/2ml inj IV PRN (19:45)
[2017-11-16] MEDS ORDERED: magnesium Cl slow-release 64mg tablet PO PRN (19:45)
[2017-11-16] MEDS ORDERED: MESSAGE TO PHARMACY PO ONE (19:45)
[2017-11-16] MEDS ORDERED: mag hydrox/Alum hydrox/simeth 30ml oral suspension PO PRN (19:45)
[2017-11-16] MEDS ORDERED: magnesium hydroxide 30ml (MOM) UD suspension PO PRN (19:45)
[2017-11-16] MEDS ORDERED: bisacodyl 10mg suppository rectal RC PRN (19:45)
[2017-11-16] MEDS ORDERED: magnesium 1gm/100ml D5W IVPB 100 ML IV PRN (19:45)
[2017-11-16] MEDS ORDERED: acetaminophen 325mg tablet PO PRN ×2 (19:45)
[2017-11-16] MEDS ORDERED: magnesium 4gm in 100ml NS 100 ML IV PRN (19:45)
[2017-11-16] MEDS ORDERED: potassium Cl 20 mEq SR tablet PO PRN ×2 (19:45)
[2017-11-16] MEDS ORDERED: potassium Cl 40MEQ/NS 500ml 500 ML IV PRN ×2 (19:45)
[2017-11-16] MEDS ORDERED: LACTULOSE 30 GM PO SCH (20:00)
[2017-11-16 20:16] LABS: HEMOGLOBIN A1C 5.6 % (4.5-6.2)
[2017-11-16 20:30] LABS: CLARITY,URINE SLIGHTLY CLOUDY (Clear); COLOR,URINE YELLOW (Yellow); GLUCOSE, URINE NEGATIVE (Neg); KETONES,URINE TRACE mg/dl (Neg); LEUKOCYTE ESTERASE ,URINE SMALL (Neg); NITRITES, URINE NEGATIVE (Neg); OCCULT BLOOD,URINE TRACE-LYSED (Neg); PROTEIN,URINE NEGATIVE (Neg); UROBILINOGEN,URINE 0.2 E.U/dL (0.2-1.0)
[2017-11-16 20:37] LABS: UA COLLECTION TYPE CLN CATCH MIDSTREAM
[2017-11-16 20:38] LABS: SQUAMOUS EPITHELIAL CELL,UR MANY /LPF (FEW)
[2017-11-16 20:39] LABS: BACTERIA,URINE 3+ /HPF (Neg); MUCUS STRANDS FEW /LPF (Neg); YEAST FEW /HPF (NEGATIVE)
[2017-11-16 20:40] LABS: RBC,URINE 0-2 /HPF (0-2); TRANSITIONAL EPI CELLS,URINE FEW /HPF
[2017-11-16 20:49] LABS: OCCULT BLOOD STOOL NEGATIVE (Neg)
[2017-11-16 20:50] VITALS: BP 150/79
[2017-11-16] MEDS: sucralfate 1 gm tablet PO SCH (21:00)
[2017-11-16 23:00] VITALS: BP 141/63
[2017-11-17] VITALS (7 sets, daily range): BP systolic 130–168; BP diastolic 65–88
[2017-11-17] MEDS ORDERED: LACTULOSE 20 GM PO SCH
[2017-11-17] MEDS ORDERED: lactulose 20gm/30ml cup PO SCH
[2017-11-17] MEDS: lactulose 20gm/30ml cup PO SCH ×4 (02:00→20:47)
[2017-11-17 02:12] LABS: ALBUMIN 2.6 G/DL (3.4-5.0); ANION GAP 11 (8-16); BLOOD UREA NITROGEN 20 MG/DL (7-18); BUN/CREATININE RATIO 10.3 (6.6-38.0); CALCIUM 9.7 MG/DL (8.5-10.1); CHLORIDE 105 MMOL/L (99-107); CREATININE 1.95 MG/DL (0.40-0.90); GLUCOSE 139 MG/DL (70-104); POTASSIUM 4.5 MMOL/L (3.5-5.1); SODIUM 134 MMOL/L (135-145); eGFR 25 ML/MIN
[2017-11-17 02:17] LABS: RED BLOOD COUNT 3.24 X10'6 (4.20-5.60); WHITE BLOOD COUNT 8.2 X10'3 (4.5-11.0)
[2017-11-17 02:18] LABS: BASOPHILS # (AUTO) 0.1 X10'3 (0-0.2); EOSINOPHILS # (AUTO) 0.2 X10'3 (0-0.9); EOSINOPHILS % (AUTO) 2.8 % (0-6); HEMATOCRIT 26.9 % (35.0-45.0); HEMOGLOBIN 8.8 g/dl (12.0-16.0); LYMPHOCYTES # (AUTO) 0.4 X10'3 (1.1-4.8); LYMPHOCYTES % (AUTO) 5.1 % (21-51); MEAN CORPUSCULAR HEMOGLOBIN 27.2 PG (27.0-31.0); MEAN CORPUSCULAR HGB CONC 32.8 % (33.0-36.5); MEAN PLATELET VOLUME 7.4 FL (7.4-10.4); MONOCYTES # (AUTO) 0.7 X10'3 (0-0.9); MONOCYTES % (AUTO) 8.1 % (2-12); NEUTROPHILS # (AUTO) 6.8 X10'3 (1.8-7.7); PLATELET COUNT 116 X10'3 (140-440); RED CELL DISTRIBUTION WIDTH 19.1 % (11.5-14.5)
[2017-11-17 02:45] LABS: ANISOCYTOSIS 2+; ELLIPTOCYTES FEW; HYPOCHROMASIA 1+; PLATELET ESTIMATE DECREASED; POLYCHROMASIA FEW; TEAR DROP CELLS FEW
[2017-11-17 02:46] LABS: POIKILOCYTOSIS FEW
[2017-11-17] MEDS: levoTHYROXINE 25mcg tablet PO SCH (07:58)
[2017-11-17] MEDS: multivitamins, therapeutics tablet PO SCH (07:58)
[2017-11-17] MEDS: pantoprazole 40mg Tablet.DR PO SCH (07:58)
[2017-11-17] MEDS: sucralfate 1 gm tablet PO SCH ×4 (07:59→20:34)
[2017-11-17] MEDS ORDERED: [UNRECOGNIZED DRUG - OTHER] PO SCH (08:00)
[2017-11-17] MEDS ORDERED: non-formulary drug (Levothyroxine Sodium 50 MCG) PO SCH (08:00)
[2017-11-17] MEDS: K and/or MAG REPLACEMENT MC SCH (08:00)
[2017-11-17] MEDS ORDERED: non-formulary drug (Omeprazole (Prilosec) 1 CAP) PO SCH (08:00)
[2017-11-17] MEDS ORDERED: MULTIVITS CA MINERALS PO SCH (08:00)
[2017-11-17] MEDS: enoxaparin 40mg/0.4ml syringe SQ SCH (08:00)
[2017-11-17] MEDS ORDERED: IRON PO SCH (08:00)
[2017-11-17] MEDS: rifaximin 550mg tablet PO SCH (20:35)
[2017-11-18] VITALS (7 sets, daily range): BP systolic 132–159; BP diastolic 57–77
[2017-11-18] MEDS: lactulose 20gm/30ml cup PO SCH ×4 (02:05→20:43)
[2017-11-18 07:01] LABS: BASOPHILS % (AUTO) 0.4 % (0-1); EOSINOPHILS # (AUTO) 0.2 X10'3 (0-0.9); EOSINOPHILS % (AUTO) 2.6 % (0-6); HEMATOCRIT 25.1 % (35.0-45.0); HEMOGLOBIN 8.5 g/dl (12.0-16.0); LYMPHOCYTES # (AUTO) 0.5 X10'3 (1.1-4.8); MEAN CORPUSCULAR HEMOGLOBIN 27.8 PG (27.0-31.0); MEAN CORPUSCULAR HGB CONC 33.8 % (33.0-36.5); MEAN CORPUSCULAR VOLUME 82.3 FL (78-98); MEAN PLATELET VOLUME 7.3 FL (7.4-10.4); MONOCYTES # (AUTO) 0.7 X10'3 (0-0.9); NEUTROPHILS # (AUTO) 5.5 X10'3 (1.8-7.7); PLATELET COUNT 118 X10'3 (140-440); RED BLOOD COUNT 3.05 X10'6 (4.20-5.60); RED CELL DISTRIBUTION WIDTH 19.4 % (11.5-14.5); WHITE BLOOD COUNT 6.9 X10'3 (4.5-11.0)
[2017-11-18 07:09] LABS: ALBUMIN 2.6 G/DL (3.4-5.0); ANION GAP 12 (8-16); BLOOD UREA NITROGEN 22 MG/DL (7-18); BUN/CREATININE RATIO 11.5 (6.6-38.0); CALCIUM 9.1 MG/DL (8.5-10.1); CHLORIDE 108 MMOL/L (99-107); CREATININE 1.92 MG/DL (0.40-0.90); GLUCOSE 126 MG/DL (70-104); SODIUM 138 MMOL/L (135-145); TOTAL CARBON DIOXIDE 18.2 MMOL/L (24-32); eGFR 25 ML/MIN
[2017-11-18] MEDS: sucralfate 1 gm tablet PO SCH ×4 (07:40→20:43)
[2017-11-18] MEDS: levoTHYROXINE 25mcg tablet PO SCH (07:40)
[2017-11-18] MEDS: multivitamins, therapeutics tablet PO SCH (07:40)
[2017-11-18] MEDS: pantoprazole 40mg Tablet.DR PO SCH (07:41)
[2017-11-18] MEDS: K and/or MAG REPLACEMENT MC SCH (07:41)
[2017-11-18] MEDS: enoxaparin 40mg/0.4ml syringe SQ SCH (08:00)
[2017-11-18] MEDS: rifaximin 550mg tablet PO SCH ×2 (10:40→20:43)
[2017-11-18] MEDS ORDERED: albumin (human) 25% 100 ML IV solution IV ONE (12:05)
[2017-11-18] MEDS ORDERED: LORazepam 0.5 MG tablet PO ONE (17:05)
[2017-11-18] MEDS ORDERED: LORazepam 0.5 MG tablet PO PRN (17:10)
[2017-11-19] VITALS (7 sets, daily range): BP systolic 116–154; BP diastolic 63–80
[2017-11-19] MEDS: lactulose 20gm/30ml cup PO SCH ×4 (01:57→19:08)
[2017-11-19 05:32] LABS: BASOPHILS % (AUTO) 0.5 % (0-1); EOSINOPHILS # (AUTO) 0.2 X10'3 (0-0.9); EOSINOPHILS % (AUTO) 3.2 % (0-6); HEMOGLOBIN 8.7 g/dl (12.0-16.0); LYMPHOCYTES # (AUTO) 0.5 X10'3 (1.1-4.8); LYMPHOCYTES % (AUTO) 7.1 % (21-51); MEAN CORPUSCULAR HEMOGLOBIN 27.7 PG (27.0-31.0); MEAN CORPUSCULAR HGB CONC 33.4 % (33.0-36.5); MEAN CORPUSCULAR VOLUME 82.9 FL (78-98); MEAN PLATELET VOLUME 7.6 FL (7.4-10.4); MONOCYTES # (AUTO) 0.6 X10'3 (0-0.9); NEUTROPHILS # (AUTO) 5.2 X10'3 (1.8-7.7); NEUTROPHILS % (AUTO) 79.2 % (42-75); PLATELET COUNT 111 X10'3 (140-440); RED BLOOD COUNT 3.14 X10'6 (4.20-5.60); RED CELL DISTRIBUTION WIDTH 19.3 % (11.5-14.5); WHITE BLOOD COUNT 6.5 X10'3 (4.5-11.0)
[2017-11-19 05:58] LABS: ALBUMIN 2.8 G/DL (3.4-5.0); ANION GAP 14 (8-16); BLOOD UREA NITROGEN 23 MG/DL (7-18); BUN/CREATININE RATIO 11.9 (6.6-38.0); CHLORIDE 108 MMOL/L (99-107); CREATININE 1.93 MG/DL (0.40-0.90); GLUCOSE 135 MG/DL (70-104); POTASSIUM 3.8 MMOL/L (3.5-5.1); SODIUM 139 MMOL/L (135-145); TOTAL CARBON DIOXIDE 16.9 MMOL/L (24-32); eGFR 25 ML/MIN
[2017-11-19] MEDS: multivitamins, therapeutics tablet PO SCH (07:32)
[2017-11-19] MEDS: pantoprazole 40mg Tablet.DR PO SCH (07:32)
[2017-11-19] MEDS: sucralfate 1 gm tablet PO SCH ×4 (07:32→20:08)
[2017-11-19] MEDS: levoTHYROXINE 25mcg tablet PO SCH (07:32)
[2017-11-19] MEDS: rifaximin 550mg tablet PO SCH ×2 (07:32→19:08)
[2017-11-19] MEDS: enoxaparin 30mg/0.3ml syringe SQ SCH (07:33)
[2017-11-19] MEDS: K and/or MAG REPLACEMENT MC SCH (07:39)
[2017-11-19] MEDS: lactobacillus rhamnosus 10,000 MMU CELLS/CAPSULE PO SCH (19:08)
[2017-11-20] VITALS (8 sets, daily range): BP systolic 115–136; BP diastolic 46–68
[2017-11-20] MEDS: lactulose 20gm/30ml cup PO SCH ×4 (01:05→20:13)
[2017-11-20 06:45] LABS: ALBUMIN 2.8 G/DL (3.4-5.0); ANION GAP 13 (8-16); BLOOD UREA NITROGEN 25 MG/DL (7-18); BUN/CREATININE RATIO 13.2 (6.6-38.0); CALCIUM 9.3 MG/DL (8.5-10.1); CHLORIDE 105 MMOL/L (99-107); CREATININE 1.89 MG/DL (0.40-0.90); GLUCOSE 119 MG/DL (70-104); POTASSIUM 3.6 MMOL/L (3.5-5.1); SODIUM 135 MMOL/L (135-145); TOTAL CARBON DIOXIDE 16.7 MMOL/L (24-32); eGFR 26 ML/MIN
[2017-11-20 06:56] LABS: BASOPHILS # (AUTO) 0.1 X10'3 (0-0.2); BASOPHILS % (AUTO) 0.8 % (0-1); EOSINOPHILS # (AUTO) 0.3 X10'3 (0-0.9); EOSINOPHILS % (AUTO) 3.6 % (0-6); HEMATOCRIT 27.9 % (35.0-45.0); LYMPHOCYTES # (AUTO) 0.5 X10'3 (1.1-4.8); LYMPHOCYTES % (AUTO) 7.4 % (21-51); MEAN CORPUSCULAR HGB CONC 32.5 % (33.0-36.5); MEAN CORPUSCULAR VOLUME 83.1 FL (78-98); MEAN PLATELET VOLUME 7.6 FL (7.4-10.4); MONOCYTES # (AUTO) 0.6 X10'3 (0-0.9); MONOCYTES % (AUTO) 8.4 % (2-12); NEUTROPHILS # (AUTO) 5.7 X10'3 (1.8-7.7); NEUTROPHILS % (AUTO) 79.8 % (42-75); PLATELET COUNT 108 X10'3 (140-440); RED BLOOD COUNT 3.35 X10'6 (4.20-5.60); RED CELL DISTRIBUTION WIDTH 19.2 % (11.5-14.5); WHITE BLOOD COUNT 7.2 X10'3 (4.5-11.0)
[2017-11-20] MEDS: K and/or MAG REPLACEMENT MC SCH (08:00)
[2017-11-20] MEDS: pantoprazole 40mg Tablet.DR PO SCH (09:35)
[2017-11-20] MEDS: sucralfate 1 gm tablet PO SCH ×4 (09:35→20:12)
[2017-11-20] MEDS: levoTHYROXINE 25mcg tablet PO SCH (09:35)
[2017-11-20] MEDS: multivitamins, therapeutics tablet PO SCH (09:35)
[2017-11-20] MEDS: lactobacillus rhamnosus 10,000 MMU CELLS/CAPSULE PO SCH ×2 (09:35→20:12)
[2017-11-20] MEDS: enoxaparin 30mg/0.3ml syringe SQ SCH (09:35)
[2017-11-20] MEDS: rifaximin 550mg tablet PO SCH ×2 (09:35→20:12)
[2017-11-21] MEDS: lactulose 20gm/30ml cup PO SCH ×3 (02:33→13:04)
[2017-11-21 03:00] VITALS: BP 135/62
[2017-11-21 05:48] LABS: BASOPHILS # (AUTO) 0.1 X10'3 (0-0.2); BASOPHILS % (AUTO) 0.8 % (0-1); EOSINOPHILS # (AUTO) 0.2 X10'3 (0-0.9); EOSINOPHILS % (AUTO) 3.1 % (0-6); HEMATOCRIT 26.1 % (35.0-45.0); HEMOGLOBIN 8.6 g/dl (12.0-16.0); LYMPHOCYTES # (AUTO) 0.4 X10'3 (1.1-4.8); LYMPHOCYTES % (AUTO) 5.3 % (21-51); MEAN CORPUSCULAR HEMOGLOBIN 27.4 PG (27.0-31.0); MEAN CORPUSCULAR HGB CONC 32.9 % (33.0-36.5); MEAN CORPUSCULAR VOLUME 83.3 FL (78-98); MEAN PLATELET VOLUME 7.6 FL (7.4-10.4); MONOCYTES # (AUTO) 0.6 X10'3 (0-0.9); MONOCYTES % (AUTO) 8.7 % (2-12); NEUTROPHILS # (AUTO) 6.1 X10'3 (1.8-7.7); NEUTROPHILS % (AUTO) 82.1 % (42-75); PLATELET COUNT 109 X10'3 (140-440); RED BLOOD COUNT 3.14 X10'6 (4.20-5.60); RED CELL DISTRIBUTION WIDTH 19.1 % (11.5-14.5); WHITE BLOOD COUNT 7.4 X10'3 (4.5-11.0)
[2017-11-21 06:00] VITALS: BP 143/70
[2017-11-21 06:14] LABS: ALBUMIN 2.6 G/DL (3.4-5.0); ANION GAP 11 (8-16); BLOOD UREA NITROGEN 26 MG/DL (7-18); BUN/CREATININE RATIO 14.7 (6.6-38.0); CALCIUM 8.4 MG/DL (8.5-10.1); CHLORIDE 103 MMOL/L (99-107); CREATININE 1.77 MG/DL (0.40-0.90); GLUCOSE 134 MG/DL (70-104); MAGNESIUM 1.8 MG/DL (1.5-2.4); POTASSIUM 3.3 MMOL/L (3.5-5.1); SODIUM 133 MMOL/L (135-145); TOTAL CARBON DIOXIDE 19.1 MMOL/L (24-32); eGFR 28 ML/MIN
[2017-11-21 07:07] LABS: PLATELET ESTIMATE DECREASED
[2017-11-21 07:08] LABS: ANISOCYTOSIS 2+
[2017-11-21 07:09] LABS: ELLIPTOCYTES 1+; POLYCHROMASIA 1+
[2017-11-21 07:10] LABS: POIKILOCYTOSIS 1+
[2017-11-21] MEDS: pantoprazole 40mg Tablet.DR PO SCH (07:30)
[2017-11-21] MEDS: levoTHYROXINE 25mcg tablet PO SCH (07:30)
[2017-11-21] MEDS: multivitamins, therapeutics tablet PO SCH (07:30)
[2017-11-21] MEDS: rifaximin 550mg tablet PO SCH (07:30)
[2017-11-21] MEDS: sucralfate 1 gm tablet PO SCH ×2 (07:30→13:03)
[2017-11-21] MEDS: lactobacillus rhamnosus 10,000 MMU CELLS/CAPSULE PO SCH (07:30)
[2017-11-21] MEDS: enoxaparin 30mg/0.3ml syringe SQ SCH (07:31)
[2017-11-21] MEDS: K and/or MAG REPLACEMENT MC SCH (08:00)
[2017-11-21 11:00] VITALS: BP 136/70
[2017-11-21 13:45] VITALS: BP 120/69
== END 2017-11-21 14:59 | DRG 433 ==
LOC: ER 13:09 → ED HOLD 19:44 → OBSVTOIN 19:55 → PCU 3S 20:40
PROVIDERS: ADMIT Hospitalist; ATTEND Internal Medicine
PROC: 0W9G3ZZ Drainage of Peritoneal Cavity, Percutaneous Approach (ICD-10-PCS; principal; 2017-11-18)
DX: K74.60 Unspecified cirrhosis of liver (principal); R18.8 Other ascites; N17.9 Acute kidney failure, unspecified; K72.90 Hepatic failure, unspecified without coma; D64.9 Anemia, unspecified; E78.5 Hyperlipidemia, unspecified; E11.22 Type 2 diabetes mellitus with diabetic chronic kidney disease; Z96.651 Presence of right artificial knee joint; E78.00 Pure hypercholesterolemia, unspecified; I12.9 Hypertensive chronic kidney disease with stage 1 through stage 4 chronic kidney disease, or unspecified chronic kidney disease; K21.9 Gastro-esophageal reflux disease without esophagitis; W06.XXXA Fall from bed, initial encounter; N18.3 Chronic kidney disease, stage 3 (moderate); Z93.2 Ileostomy status; Z90.49 Acquired absence of other specified parts of digestive tract; Z88.8 Allergy status to other drugs, medicaments and biological substances; Z88.6 Allergy status to analgesic agent; Z88.5 Allergy status to narcotic agent; Z91.013 Allergy to seafood; Z79.899 Other long term (current) drug therapy; Z85.89 Personal history of malignant neoplasm of other organs and systems; Z86.711 Personal history of pulmonary embolism; Z87.440 Personal history of urinary (tract) infections; Y93.89 Activity, other specified; Y92.89 Other specified places as the place of occurrence of the external cause; Y99.8 Other external cause status
CPT/HCPCS: 36415; 49083; 71045; 80048; 80053; 81001; 82140; 82272; 82948; 83036; 83735; 83880; 84443; 84484; 85025; 87070; 93005; 96374; 97110; 97116; 97161; 97530; 99285; G0378; J1650; J2270; J2405; J7030; P9047

== ENCOUNTER 2017-11-23 09:51 | Inpatient (IN) | payer MEDICARE, BC ==
[~2017-11-23] VITALS: Ht 157.5 cm; Wt 114.5 kg
[~2017-11-23 09:51] MED LIST changes: -DOCU-28 PO; -INSU100V12 SQ; -INSU100V36 SQ; -IPRA3AMP31 IH; -LACT10SO7 PO; -MELA3TAB PO; -OMEP20TA23 PO; +OMEP40CA37 PO; -OXYC5CAP19 PO; -POLY17PO10 PO; -PROM25TA14 PO; -RIFA550T PO
[2017-11-23 10:28] LABS: BASOPHILS # (AUTO) 0.1 X10'3 (0-0.2); BASOPHILS % (AUTO) 1.6 % (0-1); EOSINOPHILS # (AUTO) 0.3 X10'3 (0-0.9); EOSINOPHILS % (AUTO) 3.3 % (0-6); HEMATOCRIT 26.6 % (35.0-45.0); HEMOGLOBIN 8.8 g/dl (12.0-16.0); LYMPHOCYTES # (AUTO) 0.4 X10'3 (1.1-4.8); LYMPHOCYTES % (AUTO) 5.4 % (21-51); MEAN CORPUSCULAR HEMOGLOBIN 26.8 PG (27.0-31.0); MEAN CORPUSCULAR HGB CONC 32.9 % (33.0-36.5); MEAN CORPUSCULAR VOLUME 81.6 FL (78-98); MEAN PLATELET VOLUME 7.6 FL (7.4-10.4); MONOCYTES # (AUTO) 0.7 X10'3 (0-0.9); NEUTROPHILS # (AUTO) 6.3 X10'3 (1.8-7.7); NEUTROPHILS % (AUTO) 80.7 % (42-75); PLATELET COUNT 117 X10'3 (140-440); RED BLOOD COUNT 3.26 X10'6 (4.20-5.60); RED CELL DISTRIBUTION WIDTH 19.3 % (11.5-14.5); WHITE BLOOD COUNT 7.8 X10'3 (4.5-11.0)
[2017-11-23 10:39] LABS: INR 1.2 INR; PARTIAL THROMBOPLASTIN TIME 30 SECONDS (22-32); PROTHROMBIN TIME 12.1 SECONDS (9.0-12.0)
[2017-11-23 10:40] LABS: ALANINE AMINOTRANSFERASE 41 U/L (12-78); ALBUMIN 2.5 G/DL (3.4-5.0); ALBUMIN/GLOBULIN RATIO 0.7 (1.1-1.5); ALKALINE PHOSPHATASE 266 IU/L (46-116); ANION GAP 12 (8-16); ASPARTATE AMINO TRANSFERASE 73 U/L (10-37); BILIRUBIN,TOTAL 0.9 MG/DL (0.1-1.0); BLOOD UREA NITROGEN 29 MG/DL (7-18); BUN/CREATININE RATIO 14.6 (6.6-38.0); CALCIUM 8.6 MG/DL (8.5-10.1); CHLORIDE 104 MMOL/L (99-107); CREATININE 1.99 MG/DL (0.40-0.90); GLUCOSE 140 MG/DL (70-104); POTASSIUM 3.3 MMOL/L (3.5-5.1); SODIUM 134 MMOL/L (135-145); TOTAL CARBON DIOXIDE 17.7 MMOL/L (24-32); TOTAL PROTEIN 6.1 G/DL (6.4-8.2); eGFR 24 ML/MIN
[2017-11-23 10:43] LABS: CLARITY,URINE SLIGHTLY CLOUDY (Clear); COLOR,URINE YELLOW (Yellow); GLUCOSE, URINE NEGATIVE (Neg); KETONES,URINE NEGATIVE (Neg); LEUKOCYTE ESTERASE ,URINE LARGE (Neg); NITRITES, URINE NEGATIVE (Neg); OCCULT BLOOD,URINE SMALL (Neg); PROTEIN,URINE NEGATIVE (Neg); UROBILINOGEN,URINE 0.2 E.U/dL (0.2-1.0)
[2017-11-23 10:44] LABS: ETHANOL < 0.010 GM/DL (0.0-0.010); TROPONIN I < 0.04 NG/ML (0.0-0.05)
[2017-11-23 10:49] LABS: UA COLLECTION TYPE STRAIGHT CATH; WBC,URINE TNTC /HPF (0-4)
[2017-11-23 10:50] LABS: BACTERIA,URINE 3+ /HPF (Neg); RBC,URINE 0-2 /HPF (0-2); SQUAMOUS EPITHELIAL CELL,UR FEW /LPF (FEW)
[2017-11-23 10:52] LABS: TOTAL CELLS COUNTED 100
[2017-11-23 10:55] LABS: ANISOCYTOSIS 2+; PLATELET ESTIMATE DECREASED
[2017-11-23 10:58] LABS: POIKILOCYTOSIS FEW
[2017-11-23 10:59] LABS: TOXIC GRANULATION 1+; TOXIC VACUOLATION 1+
[2017-11-23 11:00] LABS: ELLIPTOCYTES 1+; POLYCHROMASIA FEW
[2017-11-23] MEDS ORDERED: CefTRIAXone/D5W-Rocephin 1gm 50 ML IV ONE (11:20)
[2017-11-23] MEDS ORDERED: lactulose 20gm/30ml cup PO ONE (11:25)
[2017-11-23] MEDS ORDERED: acetaminophen 325mg tablet PO PRN (11:55)
[2017-11-23] MEDS ORDERED: magnesium 1gm/100ml D5W IVPB 100 ML IV PRN (11:55)
[2017-11-23] MEDS ORDERED: magnesium 4gm in 100ml NS 100 ML IV PRN (11:55)
[2017-11-23] MEDS ORDERED: ondansetron/PF 4mg/2ml inj IV PRN (11:55)
[2017-11-23] MEDS ORDERED: magnesium hydroxide 30ml (MOM) UD suspension PO PRN (11:55)
[2017-11-23] MEDS ORDERED: magnesium Cl slow-release 64mg tablet PO PRN (11:55)
[2017-11-23] MEDS ORDERED: potassium Cl 40MEQ/NS 500ml 500 ML IV PRN ×2 (11:55)
[2017-11-23] MEDS ORDERED: mag hydrox/Alum hydrox/simeth 30ml oral suspension PO PRN (11:55)
[2017-11-23] MEDS ORDERED: bisacodyl 10mg suppository rectal RC PRN (11:55)
[2017-11-23] MEDS ORDERED: potassium Cl 20 mEq SR tablet PO PRN (11:55)
[2017-11-23] MEDS ORDERED: rifaximin 550mg tablet PO SCH ×2 (12:05→12:25)
[2017-11-23] MEDS ORDERED: INSU100C10 SQ (12:56)
[2017-11-23] MEDS ORDERED: ESOM5SUS PO (12:56)
[2017-11-23] MEDS ORDERED: LACT10SO PO (12:57)
[2017-11-23] MEDS: pantoprazole 40 MG vial IV SCH (13:08)
[2017-11-23] MEDS: furosemide 20 MG/2 ML vial IV SCH ×2 (13:08→20:15)
[2017-11-23 13:45] VITALS: BP 153/75
[2017-11-23] MEDS: lactulose 20gm/30ml cup PO SCH ×2 (14:08→20:15)
[2017-11-23] MEDS: potassium Cl 20 mEq SR tablet PO SCH (17:09)
[2017-11-23] MEDS ORDERED: MESSAGE TO PHARMACY PO ONE (17:50)
[2017-11-23] MEDS ORDERED: dextrose 50%-water 50ml dispensing syringe IV PRN ×2 (17:50)
[2017-11-23] MEDS ORDERED: glucagon, human recombinant 1mg kit SUBCUT PRN (17:50)
[2017-11-23] MEDS ORDERED: insulin Lispro (HumaLOG) vial - multi-dose SQ SCH (17:50)
[2017-11-23] MEDS ORDERED: dextrose ORAL solution 15 GM/59 ML bottle PO PRN ×2 (17:50)
[2017-11-23 20:00] VITALS: BP 117/62
[2017-11-23] MEDS: heparin, porcine 5000 units/ml vial SQ SCH ×2 (20:00→20:16)
[2017-11-23] MEDS: rifaximin 550mg tablet PO SCH (20:16)
[2017-11-23] MEDS: docusate sod 100mg capsule PO SCH (20:16)
[2017-11-23] MEDS: insulin glargine (Lantus) pen - multi-dose SQ SCH (21:00)
[2017-11-24] VITALS: BP 99/63
[2017-11-24] MEDS: lactulose 20gm/30ml cup PO SCH ×3 (01:08→21:21)
[2017-11-24 05:45] LABS: ALANINE AMINOTRANSFERASE 34 U/L (12-78); ALBUMIN 2.3 G/DL (3.4-5.0); ALBUMIN/GLOBULIN RATIO 0.7 (1.1-1.5); ALKALINE PHOSPHATASE 245 IU/L (46-116); ANION GAP 13 (8-16); ASPARTATE AMINO TRANSFERASE 66 U/L (10-37); BILIRUBIN,TOTAL 0.7 MG/DL (0.1-1.0); BLOOD UREA NITROGEN 30 MG/DL (7-18); BUN/CREATININE RATIO 15.4 (6.6-38.0); CALCIUM 8.6 MG/DL (8.5-10.1); CHLORIDE 105 MMOL/L (99-107); CREATININE 1.95 MG/DL (0.40-0.90); GLUCOSE 132 MG/DL (70-104); MAGNESIUM 1.7 MG/DL (1.5-2.4); POTASSIUM 3.2 MMOL/L (3.5-5.1); SODIUM 136 MMOL/L (135-145); TOTAL CARBON DIOXIDE 18.2 MMOL/L (24-32); TOTAL PROTEIN 5.8 G/DL (6.4-8.2); eGFR 25 ML/MIN
[2017-11-24 05:50] LABS: BASOPHILS % (AUTO) 0.4 % (0-1); EOSINOPHILS # (AUTO) 0.3 X10'3 (0-0.9); EOSINOPHILS % (AUTO) 3.2 % (0-6); HEMATOCRIT 26.1 % (35.0-45.0); HEMOGLOBIN 8.7 g/dl (12.0-16.0); LYMPHOCYTES # (AUTO) 0.5 X10'3 (1.1-4.8); MEAN CORPUSCULAR HEMOGLOBIN 27.3 PG (27.0-31.0); MEAN CORPUSCULAR HGB CONC 33.4 % (33.0-36.5); MEAN CORPUSCULAR VOLUME 81.5 FL (78-98); MEAN PLATELET VOLUME 7.8 FL (7.4-10.4); MONOCYTES # (AUTO) 0.8 X10'3 (0-0.9); MONOCYTES % (AUTO) 9.4 % (2-12); NEUTROPHILS # (AUTO) 6.4 X10'3 (1.8-7.7); PLATELET COUNT 106 X10'3 (140-440); RED CELL DISTRIBUTION WIDTH 19.4 % (11.5-14.5)
[2017-11-24 08:00] VITALS: BP 144/77
[2017-11-24] MEDS: K and/or MAG REPLACEMENT MC SCH (08:00)
[2017-11-24] MEDS: heparin, porcine 5000 units/ml vial SQ SCH ×2 (08:00→20:00)
[2017-11-24] MEDS: docusate sod 100mg capsule PO SCH ×2 (08:00→20:00)
[2017-11-24] MEDS ORDERED: LIDOcaine 0.5% (5mg/ml) 50ml vial ONE (08:16)
[2017-11-24] MEDS: furosemide 20 MG/2 ML vial IV SCH ×2 (08:35→21:23)
[2017-11-24] MEDS: pantoprazole 40 MG vial IV SCH (08:35)
[2017-11-24 08:36] VITALS: BP 133/55
[2017-11-24 09:21] VITALS: BP 133/53
[2017-11-24] MEDS: CefTRIAXone/D5W-Rocephin 1gm 50 ML IV SCH (09:43)
[2017-11-24] MEDS: potassium Cl 20 mEq SR tablet PO SCH ×2 (09:44→18:00)
[2017-11-24] MEDS: rifaximin 550mg tablet PO SCH ×2 (09:53→21:18)
[2017-11-24 10:25] LABS: GLUCOSE,BODY FLUID 152 MG/DL; LDH,BODY FLUID 46 U/L
[2017-11-24 11:00] VITALS: BP 141/53
[2017-11-24 11:24] LABS: TOTAL PROTEIN,BODY FLUID < 2.0 G/DL
[2017-11-24] MEDS ORDERED: albumin (human) 25% 100ml IV 100 ML IV ONE (11:30)
[2017-11-24 11:34] LABS: BF RBC COUNT 691 /CU MM; BF WBC COUNT 76 /CU MM (0-1000); BFAPPEAR CLEAR; BFCOLOR YELLOW; BFVOLUME 51 ML
[2017-11-24 11:36] LABS: LYMPHOCYTES,BODY FLUID 15 %; NEUTROPHILS,BODY FLUID 41 %
[2017-11-24 11:46] LABS: MONOCYTES,BODY FLUID 44 %; OTHER CELLS,BODY FLUID MACROPHAGES
[2017-11-24] MEDS ORDERED: morphine 2 MG/ML inj. syringe IV PRN (12:25)
[2017-11-24 18:00] VITALS: BP 129/55
[2017-11-24 18:00] LABS: ABG BASE EXCESS -8.6 mmol/L (-2.0-3.0); ABG HCO3 15.9 mmol/L (22.0-26.0); ABG OXYGEN SATURATION 96.5 % (95-98); ABG PCO2 (T) 28.8 mmHg (32.0-45.0); ABG PH (T) 7.359 (7.350-7.450); ABG PO2 (T) 92.7 mmHg (83-108); ALLEN'S TEST Positive; FCOHb 0.1 % (0.5-1.5); FMetHb 0.2 % (0.3-1.12); FO2Hb 96.2 % (94-100); TOTAL HEMOGLOBIN 8.3 G/dl (12.0-16.0)
[2017-11-24] MEDS: insulin glargine (Lantus) pen - multi-dose SQ SCH (21:00)
[2017-11-24] MEDS: potassium Cl 20 mEq SR tablet PO PRN (21:19)
[2017-11-25] VITALS: BP 130/60
[2017-11-25] MEDS: lactulose 20gm/30ml cup PO SCH ×3 (02:00→13:17)
[2017-11-25 05:20] LABS: BASOPHILS % (AUTO) 0.7 % (0-1); EOSINOPHILS # (AUTO) 0.3 X10'3 (0-0.9); EOSINOPHILS % (AUTO) 3.6 % (0-6); HEMATOCRIT 23.8 % (35.0-45.0); LYMPHOCYTES # (AUTO) 0.5 X10'3 (1.1-4.8); LYMPHOCYTES % (AUTO) 7.1 % (21-51); MEAN CORPUSCULAR HEMOGLOBIN 27.7 PG (27.0-31.0); MEAN CORPUSCULAR HGB CONC 33.8 % (33.0-36.5); MEAN PLATELET VOLUME 7.8 FL (7.4-10.4); MONOCYTES # (AUTO) 0.7 X10'3 (0-0.9); MONOCYTES % (AUTO) 10.4 % (2-12); NEUTROPHILS # (AUTO) 5.6 X10'3 (1.8-7.7); NEUTROPHILS % (AUTO) 78.2 % (42-75); PLATELET COUNT 105 X10'3 (140-440); RED CELL DISTRIBUTION WIDTH 18.9 % (11.5-14.5); WHITE BLOOD COUNT 7.1 X10'3 (4.5-11.0)
[2017-11-25 05:33] LABS: ALANINE AMINOTRANSFERASE 35 U/L (12-78); ALBUMIN 2.4 G/DL (3.4-5.0); ALBUMIN/GLOBULIN RATIO 0.8 (1.1-1.5); ALKALINE PHOSPHATASE 258 IU/L (46-116); ANION GAP 10 (8-16); ASPARTATE AMINO TRANSFERASE 62 U/L (10-37); BILIRUBIN,TOTAL 0.7 MG/DL (0.1-1.0); BLOOD UREA NITROGEN 29 MG/DL (7-18); BUN/CREATININE RATIO 14.4 (6.6-38.0); CALCIUM 8.3 MG/DL (8.5-10.1); CHLORIDE 105 MMOL/L (99-107); CREATININE 2.01 MG/DL (0.40-0.90); GLUCOSE 135 MG/DL (70-104); MAGNESIUM 1.5 MG/DL (1.5-2.4); POTASSIUM 3.2 MMOL/L (3.5-5.1); SODIUM 135 MMOL/L (135-145); TOTAL CARBON DIOXIDE 20.5 MMOL/L (24-32); TOTAL PROTEIN 5.5 G/DL (6.4-8.2); eGFR 24 ML/MIN
[2017-11-25] MEDS ORDERED: pantoprazole 40mg Tablet.DR PO SCH (07:30)
[2017-11-25] MEDS: docusate sod 100mg capsule PO SCH (08:00)
[2017-11-25] MEDS: K and/or MAG REPLACEMENT MC SCH (08:00)
[2017-11-25 08:06] VITALS: BP 103/58
[2017-11-25] MEDS: heparin, porcine 5000 units/ml vial SQ SCH (08:28)
[2017-11-25] MEDS: potassium Cl 20 mEq SR tablet PO SCH (08:28)
[2017-11-25] MEDS: rifaximin 550mg tablet PO SCH (08:29)
[2017-11-25] MEDS: CefTRIAXone/D5W-Rocephin 1gm 50 ML IV SCH (08:29)
[2017-11-25] MEDS: potassium Cl 20 mEq SR tablet PO PRN ×2 (10:08→14:39)
[2017-11-25 12:00] VITALS: BP 138/78
[2017-11-25] MEDS: furosemide 20 MG/2 ML vial IV SCH (12:34)
[2017-11-25] MEDS ORDERED: lactobacillus rhamnosus 10,000 MMU CELLS/CAPSULE PO SCH (20:00)
== END 2017-11-25 17:32 | DRG 442 ==
LOC: ER 09:52 → ED HOLD 11:54 → SUR 3N 13:29
PROVIDERS: ADMIT Internal Medicine; ATTEND Internal Medicine
PROC: 0W9G3ZZ Drainage of Peritoneal Cavity, Percutaneous Approach (ICD-10-PCS; principal; 2017-11-24)
DX: K72.90 Hepatic failure, unspecified without coma (principal); N39.0 Urinary tract infection, site not specified; Z68.42 Body mass index [BMI] 45.0-49.9, adult; R18.8 Other ascites; N18.3 Chronic kidney disease, stage 3 (moderate); D69.6 Thrombocytopenia, unspecified; D63.8 Anemia in other chronic diseases classified elsewhere; E11.22 Type 2 diabetes mellitus with diabetic chronic kidney disease; E78.00 Pure hypercholesterolemia, unspecified; K74.60 Unspecified cirrhosis of liver; E83.42 Hypomagnesemia; E87.6 Hypokalemia; I12.9 Hypertensive chronic kidney disease with stage 1 through stage 4 chronic kidney disease, or unspecified chronic kidney disease; K21.9 Gastro-esophageal reflux disease without esophagitis; Z66 Do not resuscitate; B96.89 Other specified bacterial agents as the cause of diseases classified elsewhere; D69.59 Other secondary thrombocytopenia; E66.01 Morbid (severe) obesity due to excess calories; Z90.49 Acquired absence of other specified parts of digestive tract; Z93.2 Ileostomy status; Z88.8 Allergy status to other drugs, medicaments and biological substances; Z88.5 Allergy status to narcotic agent; Z91.013 Allergy to seafood; Z79.899 Other long term (current) drug therapy; Z86.711 Personal history of pulmonary embolism
CPT/HCPCS: 36415; 36600; 49083; 70450; 71045; 80053; 80320; 81001; 82140; 82803; 82945; 82948; 83615; 83735; 84157; 84484; 85018; 85025; 85610; 85730; 86885; 87070; 87075; 87077; 87088; 87186; 89051; 93005; 97110; 97162; 97530; 99285; C9113; J0696; J1644; J1815; J1940; J2001; P9047

== ENCOUNTER 2017-11-29 06:27 | Day surgery (SDC) | payer MEDICARE, BC ==
[~2017-11-29] VITALS: Ht 165.1 cm; Wt 96.6 kg
[2017-11-29] VITALS (9 sets, daily range): BP systolic 113–147; BP diastolic 62–92
[~2017-11-29 06:27] MED LIST changes: +ESOM5SUS PO; +INSU100C10 SQ; +LACT10SO PO; -LACT10SO6 PO; -OMEP40CA37 PO
[2017-11-29] MEDS ORDERED: normal saline 1000ml 1,000 ML IV PRN (06:55)
[2017-11-29] MEDS ORDERED: LIDOcaine 1% (10mg/ml)w/preservative injection 20ml MDV SQ ONE (09:00)
[2017-11-29] MEDS: albumin (human) 25% 100 ML IV solution IV PRN ×2 (09:02→09:42)
== END 2017-11-29 10:18 | disposition home or self-care (01) ==
LOC: SSTAY O 06:27
PROVIDERS: ATTEND Radiology Diagnostic Radiology
DX: R18.8 Other ascites (principal); K76.0 Fatty (change of) liver, not elsewhere classified; K74.60 Unspecified cirrhosis of liver; E11.9 Type 2 diabetes mellitus without complications; Z87.440 Personal history of urinary (tract) infections; Z96.651 Presence of right artificial knee joint; Z88.8 Allergy status to other drugs, medicaments and biological substances; Z88.5 Allergy status to narcotic agent; Z91.013 Allergy to seafood; Z98.890 Other specified postprocedural states
CPT/HCPCS: 49083; 82948; J2001; J7030; P9047

== ENCOUNTER 2017-12-06 07:42 | Day surgery (SDC) | payer MEDICARE, BC ==
[~2017-12-06] VITALS: Ht 165.1 cm; Wt 95.1 kg
[2017-12-06] VITALS (11 sets, daily range): BP systolic 99–134; BP diastolic 52–72
[2017-12-06] MEDS ORDERED: albumin (human) 25% 100 ML IV solution IV PRN (08:10)
[2017-12-06] MEDS ORDERED: normal saline 1000ml 1,000 ML IV PRN (08:10)
[2017-12-06] MEDS ORDERED: LIDOcaine 1% 30ml preserv. free vial SQ ONE (09:00)
== END 2017-12-06 09:55 | disposition home or self-care (01) ==
LOC: SSTAY O 07:42
PROVIDERS: ATTEND Radiology Vascular & Interventional Radiology
DX: K70.31 Alcoholic cirrhosis of liver with ascites (principal); E03.9 Hypothyroidism, unspecified; K76.0 Fatty (change of) liver, not elsewhere classified; F41.9 Anxiety disorder, unspecified; E78.5 Hyperlipidemia, unspecified; I95.1 Orthostatic hypotension; K21.9 Gastro-esophageal reflux disease without esophagitis; I12.9 Hypertensive chronic kidney disease with stage 1 through stage 4 chronic kidney disease, or unspecified chronic kidney disease; E11.22 Type 2 diabetes mellitus with diabetic chronic kidney disease; N18.3 Chronic kidney disease, stage 3 (moderate); M19.90 Unspecified osteoarthritis, unspecified site; F10.10 Alcohol abuse, uncomplicated; Z88.5 Allergy status to narcotic agent; Z87.440 Personal history of urinary (tract) infections; Z96.651 Presence of right artificial knee joint; Z86.79 Personal history of other diseases of the circulatory system; Z86.711 Personal history of pulmonary embolism; Z91.013 Allergy to seafood; Z87.891 Personal history of nicotine dependence; Z93.2 Ileostomy status; Z88.4 Allergy status to anesthetic agent; Z88.6 Allergy status to analgesic agent; Z79.4 Long term (current) use of insulin; Z90.49 Acquired absence of other specified parts of digestive tract; Z85.828 Personal history of other malignant neoplasm of skin; Z86.69 Personal history of other diseases of the nervous system and sense organs; Z79.899 Other long term (current) drug therapy; Z88.8 Allergy status to other drugs, medicaments and biological substances; Z98.890 Other specified postprocedural states
CPT/HCPCS: 49083; J3490; J7030; P9047

== ENCOUNTER 2017-12-14 07:54 | Day surgery (SDC) | payer MEDICARE, BC ==
[2017-12-14] VITALS (14 sets, daily range): BP systolic 101–141; BP diastolic 28–69
[~2017-12-14] VITALS: Ht 165.1 cm; Wt 95.4 kg
[2017-12-14] MEDS ORDERED: normal saline 1000ml 1,000 ML IV PRN (08:30)
[2017-12-14] MEDS ORDERED: albumin (human) 25% 100 ML IV solution IV PRN (08:30)
[2017-12-14] MEDS ORDERED: OMEP20TA5 PO (08:36)
[2017-12-14] MEDS ORDERED: LIDOcaine 1% 30ml preserv. free vial SQ ONE (09:30)
== END 2017-12-14 10:50 | disposition home or self-care (01) ==
LOC: SSTAY O 07:54
PROVIDERS: ATTEND Radiology Diagnostic Radiology
DX: R18.8 Other ascites (principal); K75.81 Nonalcoholic steatohepatitis (NASH); K72.90 Hepatic failure, unspecified without coma; K74.60 Unspecified cirrhosis of liver; E03.9 Hypothyroidism, unspecified; E11.22 Type 2 diabetes mellitus with diabetic chronic kidney disease; I12.9 Hypertensive chronic kidney disease with stage 1 through stage 4 chronic kidney disease, or unspecified chronic kidney disease; N18.3 Chronic kidney disease, stage 3 (moderate); F41.8 Other specified anxiety disorders; E78.5 Hyperlipidemia, unspecified; I95.1 Orthostatic hypotension; K21.9 Gastro-esophageal reflux disease without esophagitis; M19.90 Unspecified osteoarthritis, unspecified site; Z86.79 Personal history of other diseases of the circulatory system; Z86.711 Personal history of pulmonary embolism; Z86.69 Personal history of other diseases of the nervous system and sense organs; Z87.891 Personal history of nicotine dependence; Z90.49 Acquired absence of other specified parts of digestive tract; Z72.89 Other problems related to lifestyle; Z87.440 Personal history of urinary (tract) infections; Z96.651 Presence of right artificial knee joint; Z91.013 Allergy to seafood; Z88.4 Allergy status to anesthetic agent; Z88.5 Allergy status to narcotic agent; Z88.6 Allergy status to analgesic agent; Z79.4 Long term (current) use of insulin; Z85.828 Personal history of other malignant neoplasm of skin; Z79.899 Other long term (current) drug therapy; Z98.890 Other specified postprocedural states; Z88.8 Allergy status to other drugs, medicaments and biological substances
CPT/HCPCS: 49083; J3490; J7030; P9047

== ENCOUNTER 2017-12-21 06:53 | Day surgery (SDC) | payer MEDICARE, BC ==
[~2017-12-21] VITALS: Ht 165.1 cm; Wt 92.4 kg
[2017-12-21] VITALS (8 sets, daily range): BP systolic 125–146; BP diastolic 54–86
[~2017-12-21 06:53] MED LIST changes: -ESOM5SUS PO; +OMEP20TA5 PO
[2017-12-21] MEDS ORDERED: normal saline 1000ml 1,000 ML IV PRN (07:35)
[2017-12-21] MEDS ORDERED: FURO-150 PO (07:36)
[2017-12-21] MEDS ORDERED: ESOM40CA30 PO (07:36)
[2017-12-21] MEDS ORDERED: RIFA550T PO (07:36)
[2017-12-21] MEDS ORDERED: ASPI-1265 PO (07:36)
[2017-12-21] MEDS ORDERED: LIDOcaine 1% 30ml preserv. free vial SQ ONE (09:00)
[2017-12-21] MEDS: albumin (human) 25% 100 ML IV solution IV PRN ×2 (09:03→09:32)
== END 2017-12-21 10:30 | disposition home or self-care (01) ==
LOC: SSTAY O 06:53
PROVIDERS: ATTEND Radiology Diagnostic Radiology
DX: R18.8 Other ascites (principal); K74.69 Other cirrhosis of liver; E11.9 Type 2 diabetes mellitus without complications; E66.01 Morbid (severe) obesity due to excess calories; E78.5 Hyperlipidemia, unspecified; I10 Essential (primary) hypertension; K21.9 Gastro-esophageal reflux disease without esophagitis; M19.90 Unspecified osteoarthritis, unspecified site; F41.8 Other specified anxiety disorders; Z72.89 Other problems related to lifestyle; Z93.2 Ileostomy status; Z85.828 Personal history of other malignant neoplasm of skin; Z87.440 Personal history of urinary (tract) infections; Z87.891 Personal history of nicotine dependence; Z79.82 Long term (current) use of aspirin; Z68.33 Body mass index [BMI] 33.0-33.9, adult; Z86.69 Personal history of other diseases of the nervous system and sense organs; Z87.09 Personal history of other diseases of the respiratory system; Z96.651 Presence of right artificial knee joint; Z90.49 Acquired absence of other specified parts of digestive tract; Z91.013 Allergy to seafood; Z88.4 Allergy status to anesthetic agent; Z88.5 Allergy status to narcotic agent; Z88.6 Allergy status to analgesic agent; Z79.891 Long term (current) use of opiate analgesic; Z79.4 Long term (current) use of insulin; Z88.8 Allergy status to other drugs, medicaments and biological substances; Z98.890 Other specified postprocedural states; Z79.899 Other long term (current) drug therapy
CPT/HCPCS: 49083; 82948; J3490; J7030; P9047

== ENCOUNTER 2018-01-10 07:54 | Day surgery (SDC) | payer MEDICARE, BC ==
[2018-01-10] VITALS (12 sets, daily range): BP systolic 116–150; BP diastolic 49–70
[~2018-01-10 07:54] MED LIST changes: +ASPI-1265 PO; +ESOM40CA30 PO; +FURO-150 PO; -OMEP20TA5 PO; +RIFA550T PO
[2018-01-10] MEDS ORDERED: LIDOcaine 1% 30ml preserv. free vial SQ ONE (09:00)
[2018-01-10] MEDS ORDERED: normal saline 1000ml 1,000 ML IV PRN (09:55)
[2018-01-10] MEDS ORDERED: albumin (human) 25% 100 ML IV solution IV PRN (09:55)
== END 2018-01-10 11:05 | disposition home or self-care (01) ==
LOC: SSTAY O 07:54
PROVIDERS: ATTEND Radiology Diagnostic Radiology
DX: R18.8 Other ascites (principal); K75.81 Nonalcoholic steatohepatitis (NASH); E11.9 Type 2 diabetes mellitus without complications; E66.01 Morbid (severe) obesity due to excess calories; I10 Essential (primary) hypertension; E78.5 Hyperlipidemia, unspecified; K21.9 Gastro-esophageal reflux disease without esophagitis; M19.90 Unspecified osteoarthritis, unspecified site; F41.8 Other specified anxiety disorders; E55.9 Vitamin D deficiency, unspecified; Z93.2 Ileostomy status; Z72.89 Other problems related to lifestyle; Z79.82 Long term (current) use of aspirin; Z86.69 Personal history of other diseases of the nervous system and sense organs; Z87.891 Personal history of nicotine dependence; Z87.09 Personal history of other diseases of the respiratory system; Z85.828 Personal history of other malignant neoplasm of skin; Z86.79 Personal history of other diseases of the circulatory system; Z87.440 Personal history of urinary (tract) infections; Z91.013 Allergy to seafood; Z88.4 Allergy status to anesthetic agent; Z88.5 Allergy status to narcotic agent; Z88.6 Allergy status to analgesic agent; Z96.651 Presence of right artificial knee joint; Z90.49 Acquired absence of other specified parts of digestive tract; Z79.891 Long term (current) use of opiate analgesic; Z79.4 Long term (current) use of insulin; Z88.8 Allergy status to other drugs, medicaments and biological substances; Z98.890 Other specified postprocedural states; Z79.899 Other long term (current) drug therapy
CPT/HCPCS: 49083; J3490; J7030; P9047

== ENCOUNTER 2018-01-19 09:30 | Day surgery (SDC) | payer MEDICARE, BC ==
[~2018-01-19] VITALS: Ht 165.1 cm; Wt 91.8 kg
[~2018-01-19 09:30] MED LIST changes: +LIDOcaine 1% 30ml preserv. free vial SQ STA
[2018-01-19 10:15] VITALS: BP 178/92
[2018-01-19] MEDS ORDERED: albumin (human) 25% 100 ML IV solution IV PRN (10:15)
[2018-01-19 11:00] VITALS: BP 159/72
[2018-01-19 11:15] VITALS: BP 166/81
[2018-01-19 11:30] VITALS: BP 168/88
[2018-01-19 11:45] VITALS: BP 164/86
== END 2018-01-19 15:15 | disposition home or self-care (01) ==
LOC: SSTAY O 09:30
PROVIDERS: ATTEND Radiology Diagnostic Radiology
DX: R18.8 Other ascites (principal); K75.81 Nonalcoholic steatohepatitis (NASH); E66.01 Morbid (severe) obesity due to excess calories; E11.9 Type 2 diabetes mellitus without complications; E78.5 Hyperlipidemia, unspecified; I10 Essential (primary) hypertension; K21.9 Gastro-esophageal reflux disease without esophagitis; M19.90 Unspecified osteoarthritis, unspecified site; F41.8 Other specified anxiety disorders; Z72.89 Other problems related to lifestyle; Z87.891 Personal history of nicotine dependence; Z87.09 Personal history of other diseases of the respiratory system; Z93.2 Ileostomy status; Z85.828 Personal history of other malignant neoplasm of skin; Z87.440 Personal history of urinary (tract) infections; Z96.641 Presence of right artificial hip joint; Z90.49 Acquired absence of other specified parts of digestive tract; Z91.013 Allergy to seafood; Z88.4 Allergy status to anesthetic agent; Z88.5 Allergy status to narcotic agent; Z88.6 Allergy status to analgesic agent; Z79.891 Long term (current) use of opiate analgesic; Z79.4 Long term (current) use of insulin; Z79.82 Long term (current) use of aspirin; Z68.33 Body mass index [BMI] 33.0-33.9, adult; Z86.69 Personal history of other diseases of the nervous system and sense organs; Z98.890 Other specified postprocedural states; Z88.8 Allergy status to other drugs, medicaments and biological substances; Z79.899 Other long term (current) drug therapy
CPT/HCPCS: 49083; J3490; P9047

== ENCOUNTER 2018-02-02 08:19 | Day surgery (SDC) | payer MEDICARE, BC ==
[2018-02-02] VITALS (10 sets, daily range): BP systolic 128–160; BP diastolic 71–95
[~2018-02-02 08:19] MED LIST changes: +ASPI81TA52 PO; -LACT10SO PO
[2018-02-02] MEDS ORDERED: albumin (human) 25% 100 ML IV solution IV PRN (08:50)
[2018-02-02] MEDS ORDERED: normal saline 1000ml 1,000 ML IV PRN (08:50)
== END 2018-02-02 11:25 | disposition home or self-care (01) ==
LOC: SSTAY O 08:19
PROVIDERS: ATTEND Radiology Vascular & Interventional Radiology
DX: R18.8 Other ascites (principal); K75.81 Nonalcoholic steatohepatitis (NASH); E11.9 Type 2 diabetes mellitus without complications; E78.5 Hyperlipidemia, unspecified; K21.9 Gastro-esophageal reflux disease without esophagitis; M19.90 Unspecified osteoarthritis, unspecified site; E66.01 Morbid (severe) obesity due to excess calories; F41.8 Other specified anxiety disorders; I11.0 Hypertensive heart disease with heart failure; I50.9 Heart failure, unspecified; Z87.891 Personal history of nicotine dependence; Z87.09 Personal history of other diseases of the respiratory system; Z93.2 Ileostomy status; Z72.89 Other problems related to lifestyle; Z85.828 Personal history of other malignant neoplasm of skin; Z87.440 Personal history of urinary (tract) infections; Z91.013 Allergy to seafood; Z88.4 Allergy status to anesthetic agent; Z88.5 Allergy status to narcotic agent; Z88.6 Allergy status to analgesic agent; Z96.651 Presence of right artificial knee joint; Z90.49 Acquired absence of other specified parts of digestive tract; Z79.891 Long term (current) use of opiate analgesic; Z79.4 Long term (current) use of insulin; Z79.82 Long term (current) use of aspirin; Z86.69 Personal history of other diseases of the nervous system and sense organs; Z88.8 Allergy status to other drugs, medicaments and biological substances; Z98.890 Other specified postprocedural states; Z79.899 Other long term (current) drug therapy
CPT/HCPCS: 49083; J3490; J7030; P9047

== ENCOUNTER 2018-02-13 07:44 | Day surgery (SDC) | payer MEDICARE, BC ==
[~2018-02-13 07:44] MED LIST changes: -ASPI81TA52 PO; -RIFA550T PO
[2018-02-13 07:58] VITALS: BP 134/62
[2018-02-13] MEDS ORDERED: albumin (human) 25% 100 ML IV solution IV PRN (08:00)
--- NOTE | 2018-02-13 08:00 | NUR ---
pt refused iv.
--- NOTE | 2018-02-13 09:08 | NUR ---
PT ON BEDPAN, PT REFUSING CARE HOWEVER INCITANT PT NEEDS TO USE [employer]. WILL CONTINUE TO MONITOR.
--- NOTE | 2018-02-13 09:19 | NUR ---
PT VERBALIZED SHE DID NOT WANT TO BE ROLLED TO REMOVED BEDPAN, PT DID NOT VOID, DEPENDS PAD WAS DRY WHEN IT WAS REMOVED PRIOR TO BEDPAN. WILL CONTINUE TO MONITOR.
--- NOTE | 2018-02-13 09:41 | NUR ---
pt awaits procedure, at bedside. states," I'm loosing my patients". offered something to drink, he refused. pt appears to be comfortable at this time. eyes closed, respirations even.
--- NOTE | 2018-02-13 10:00 | NUR ---
MD aware pt refused iv, no iv needed per md.
[2018-02-13 10:05] VITALS: BP 151/71
[2018-02-13 10:20] VITALS: BP 138/68
[2018-02-13 10:40] VITALS: BP 137/81
[2018-02-13 10:45] VITALS: BP 148/71
[2018-02-13 11:00] VITALS: BP 143/72
== END 2018-02-13 11:11 | disposition home or self-care (01) ==
LOC: SSTAY O 07:44
PROVIDERS: ATTEND Radiology Diagnostic Radiology
DX: R18.8 Other ascites (principal); K74.60 Unspecified cirrhosis of liver; E78.5 Hyperlipidemia, unspecified; K21.9 Gastro-esophageal reflux disease without esophagitis; K72.90 Hepatic failure, unspecified without coma; M19.90 Unspecified osteoarthritis, unspecified site; E11.9 Type 2 diabetes mellitus without complications; F41.8 Other specified anxiety disorders; I11.0 Hypertensive heart disease with heart failure; I50.9 Heart failure, unspecified; Z72.89 Other problems related to lifestyle; Z96.651 Presence of right artificial knee joint; Z87.440 Personal history of urinary (tract) infections; Z85.828 Personal history of other malignant neoplasm of skin; Z91.013 Allergy to seafood; Z88.4 Allergy status to anesthetic agent; Z88.5 Allergy status to narcotic agent; Z88.6 Allergy status to analgesic agent; Z79.82 Long term (current) use of aspirin; Z79.84 Long term (current) use of oral hypoglycemic drugs; Z86.69 Personal history of other diseases of the nervous system and sense organs; Z87.891 Personal history of nicotine dependence; Z87.09 Personal history of other diseases of the respiratory system; Z90.49 Acquired absence of other specified parts of digestive tract; Z93.2 Ileostomy status; Z98.890 Other specified postprocedural states; Z88.8 Allergy status to other drugs, medicaments and biological substances; Z79.899 Other long term (current) drug therapy
CPT/HCPCS: 49083; J3490

== ENCOUNTER 2018-02-20 08:57 | Day surgery (SDC) | payer MEDICARE, BC ==
[2018-02-20] VITALS (7 sets, daily range): BP systolic 101–132; BP diastolic 54–70
[2018-02-20] MEDS ORDERED: albumin 25% 50mL bottle X 2 BOTTLES IV ONE (09:20)
[2018-02-20] MEDS ORDERED: normal saline 1000ml 1,000 ML IV PRN (09:20)
== END 2018-02-20 11:30 | disposition home or self-care (01) ==
LOC: SSTAY O 08:57
PROVIDERS: ATTEND Radiology Diagnostic Radiology
DX: R18.8 Other ascites (principal); K76.0 Fatty (change of) liver, not elsewhere classified; K74.69 Other cirrhosis of liver; E78.5 Hyperlipidemia, unspecified; K21.9 Gastro-esophageal reflux disease without esophagitis; M19.90 Unspecified osteoarthritis, unspecified site; E11.9 Type 2 diabetes mellitus without complications; F41.8 Other specified anxiety disorders; I11.0 Hypertensive heart disease with heart failure; I50.9 Heart failure, unspecified; Z91.013 Allergy to seafood; Z86.69 Personal history of other diseases of the nervous system and sense organs; Z87.09 Personal history of other diseases of the respiratory system; Z90.49 Acquired absence of other specified parts of digestive tract; Z93.2 Ileostomy status; Z87.440 Personal history of urinary (tract) infections; Z72.89 Other problems related to lifestyle; Z96.651 Presence of right artificial knee joint; Z85.828 Personal history of other malignant neoplasm of skin; Z88.5 Allergy status to narcotic agent; Z88.4 Allergy status to anesthetic agent; Z79.82 Long term (current) use of aspirin; Z79.4 Long term (current) use of insulin; Z87.891 Personal history of nicotine dependence; Z98.890 Other specified postprocedural states; Z79.899 Other long term (current) drug therapy; Z88.8 Allergy status to other drugs, medicaments and biological substances
CPT/HCPCS: 49083; J3490

== ENCOUNTER 2018-02-21 12:11 | Emergency (ER) | payer MEDICARE, BC ==
[~2018-02-21] VITALS: Ht 167.6 cm; Wt 82.0 kg
[~2018-02-21 12:11] MED LIST changes: -LIDOcaine 1% 30ml preserv. free vial SQ STA
[2018-02-21] MEDS ORDERED: normal saline 1000ML IV soln IV ONE (12:50)
[2018-02-21] MEDS ORDERED: acetaminophen 650mg rectal suppository RC STA (12:51)
[2018-02-21 13:11] LABS: BASOPHILS # (AUTO) 0.1 X10'3 (0-0.2); BASOPHILS % (AUTO) 0.6 % (0-1); EOSINOPHILS # (AUTO) 0.2 X10'3 (0-0.9); EOSINOPHILS % (AUTO) 2.3 % (0-6); HEMATOCRIT 25.4 % (35.0-45.0); HEMOGLOBIN 8.1 g/dl (12.0-16.0); LYMPHOCYTES # (AUTO) 0.6 X10'3 (1.1-4.8); LYMPHOCYTES % (AUTO) 6.3 % (21-51); MEAN CORPUSCULAR HEMOGLOBIN 27.4 PG (27.0-31.0); MEAN CORPUSCULAR HGB CONC 31.9 % (33.0-36.5); MEAN CORPUSCULAR VOLUME 85.9 FL (78-98); MEAN PLATELET VOLUME 8.1 FL (7.4-10.4); MONOCYTES # (AUTO) 0.9 X10'3 (0-0.9); MONOCYTES % (AUTO) 10.2 % (2-12); NEUTROPHILS # (AUTO) 7.2 X10'3 (1.8-7.7); NEUTROPHILS % (AUTO) 80.6 % (42-75); PLATELET COUNT 138 X10'3 (140-440); RED BLOOD COUNT 2.95 X10'6 (4.20-5.60); RED CELL DISTRIBUTION WIDTH 18.7 % (11.5-14.5)
[2018-02-21 13:23] LABS: INR 1.5 INR; PARTIAL THROMBOPLASTIN TIME 33 SECONDS (22-32); PROTHROMBIN TIME 14.5 SECONDS (9.0-12.0)
[2018-02-21 13:26] LABS: ALANINE AMINOTRANSFERASE 35 U/L (12-78); ALBUMIN 2.4 G/DL (3.4-5.0); ALBUMIN/GLOBULIN RATIO 0.7 (1.1-1.5); ALKALINE PHOSPHATASE 165 IU/L (46-116); ANION GAP 13 (8-16); ASPARTATE AMINO TRANSFERASE 60 U/L (10-37); BILIRUBIN,TOTAL 1.5 MG/DL (0.1-1.0); BLOOD UREA NITROGEN 75 MG/DL (7-18); BUN/CREATININE RATIO 27.5 (6.6-38.0); CALCIUM 8.6 MG/DL (8.5-10.1); CHLORIDE 111 MMOL/L (99-107); CREATININE 2.73 MG/DL (0.40-0.90); GLUCOSE 152 MG/DL (70-104); MAGNESIUM 1.7 MG/DL (1.5-2.4); POTASSIUM 3.6 MMOL/L (3.5-5.1); SODIUM 147 MMOL/L (135-145); TOTAL PROTEIN 5.7 G/DL (6.4-8.2); eGFR 17 ML/MIN
[2018-02-21 13:57] LABS: CLARITY,URINE CLEAR (Clear); COLOR,URINE YELLOW (Yellow); GLUCOSE, URINE NEGATIVE (Neg); KETONES,URINE NEGATIVE (Neg); LEUKOCYTE ESTERASE ,URINE NEGATIVE (Neg); NITRITES, URINE NEGATIVE (Neg); OCCULT BLOOD,URINE MODERATE (Neg); PH,URINE 5.5 (4.8-8.0); PROTEIN,URINE NEGATIVE (Neg); UROBILINOGEN,URINE 0.2 E.U/dL (0.2-1.0)
[2018-02-21 14:00] LABS: UA COLLECTION TYPE STRAIGHT CATH
[2018-02-21] MEDS ORDERED: piperacillin/tazo 3.375gm/50ml 50 ML IV ONE (14:05)
[2018-02-21 14:10] LABS: MUCUS STRANDS FEW /LPF (Neg); SQUAMOUS EPITHELIAL CELL,UR FEW /LPF (FEW)
[2018-02-21 14:11] LABS: BACTERIA,URINE FEW /HPF (Neg); HYALINE CASTS 0-3 /LPF (NEGATIVE); RBC,URINE 0-2 /HPF (0-2); WBC,URINE 0-4 /HPF (0-4)
--- NOTE | 2018-02-21 15:37 | NUR ---
report given to javid at [facility]. she states that they use [facility]. Javid informed that is putting patient on [facility].
[2018-02-21 16:30] VITALS: BP 137/65
== END 2018-02-21 16:52 | disposition home or self-care (01) ==
LOC: ER 12:11
DX: R18.8 Other ascites (principal); R50.9 Fever, unspecified; R14.0 Abdominal distension (gaseous); E78.00 Pure hypercholesterolemia, unspecified; I12.9 Hypertensive chronic kidney disease with stage 1 through stage 4 chronic kidney disease, or unspecified chronic kidney disease; E11.22 Type 2 diabetes mellitus with diabetic chronic kidney disease; N18.9 Chronic kidney disease, unspecified; Z86.711 Personal history of pulmonary embolism; Z90.49 Acquired absence of other specified parts of digestive tract; Z98.890 Other specified postprocedural states; Z87.891 Personal history of nicotine dependence; Z91.013 Allergy to seafood; Z88.8 Allergy status to other drugs, medicaments and biological substances; Z88.6 Allergy status to analgesic agent; Z88.5 Allergy status to narcotic agent; Z79.82 Long term (current) use of aspirin; Z79.4 Long term (current) use of insulin; Z79.899 Other long term (current) drug therapy
CPT/HCPCS: 36415; 71045; 80053; 81001; 83605; 83735; 84145; 85025; 85610; 85730; 87040; 93005; 96365; 99284; J2543; J7030; P9612